=== PATIENT | female | born 1950 | race Caucasian/White ===

== ENCOUNTER 2017-02-06 03:49 | Inpatient (IN) | payer MEDICARE, OTHER ==
[~2017-02-06] VITALS: Ht 162.6 cm; Wt 44.5 kg
[2017-02-06] VITALS (7 sets, daily range): BP systolic 106–139; BP diastolic 65–82
[~2017-02-06 03:49] MED LIST: ALBU18HF2 INH; ASCO250T5 PO; CARB200C4 PO; DOCU-106 PO; FAMO-131 PO; GABA-532 PO; HYDR12.5 PO; IPRA12.9 INH; LORA1TAB82 PO; PROM6.25 PO; QUET100T PO; RISP4TAB4 PO
--- NOTE | 2017-02-06 03:50 | NUR ---
TO BED 8 BIB PARAMEDICS C/O SOB, BILATERAL RHONCHI HEARD BILATERALLY ON AUSCULTATION. PT VERY AGITATED, RESTLESS, SCREAMING. PT KEEPS TALKING ABOUT HER PSYCHIATRIST AND THAT SHE DOES NOT WANT TO SEE HER PSYCHIATRIST. PLACE PT ON CARDIAC MONITORING, CONTINUOUS POX, O2@2L/NC. ER MD AT BEDSIDE TO EVAL PT WITH ORDERS RECEIVED. WILL CARRY OUT ORDERS.
[2017-02-06] MEDS ORDERED: methylPREDNISolone SOD SUCC 125 MG/2ML VIAL IV ONE (04:00)
[2017-02-06] MEDS ORDERED: ALBUTEROL FS 2.5 MG/3 ML VIAL.NEB NEB ONE (04:00)
[2017-02-06] MEDS ORDERED: OLANZAPINE 10 MG VIAL IM ONE ×2 (04:00)
[2017-02-06] MEDS ORDERED: methylPREDNISolone SOD SUCC 125 MG/2ML VIAL ONE (04:13)
[2017-02-06] MEDS ORDERED: ONDANSETRON HCL/PF 4 MG/2 ML VIAL ONE (04:16)
[2017-02-06] MEDS ORDERED: MORPHINE SULFATE INJ 2 MG/ML DISP.SYRIN ONE (04:17)
[2017-02-06 04:20] LABS: BASOPHILS % (AUTO) 0.3 % (0.0-2.0); EOSINOPHILS # (AUTO) 0.1 /CMM (0.0-0.7); EOSINOPHILS % (AUTO) 0.7 % (0.0-6.0); HEMATOCRIT 44 % (33-45); HEMOGLOBIN 14.4 g/dL (11.5-14.8); LYMPHOCYTES # (AUTO) 1.3 /CMM (0.8-4.8); LYMPHOCYTES % (AUTO) 12.3 % (20.0-44.0); MEAN CORPUSCULAR HEMOGLOBIN 31 PG (26.0-33.0); MEAN CORPUSCULAR HGB CONC 33 g/dl (31.0-36.0); MEAN CORPUSCULAR VOLUME 94 fL (82-100); MONOCYTES # (AUTO) 0.5 /CMM (0.1-1.30); MONOCYTES % (AUTO) 4.7 % (2.0-12.0); PLATELET COUNT (AUTO) 220 /CMM (150-450); RDW COEFFICIENT OF VARIATION 13.8 (11.5-15.0); RED BLOOD CELL COUNT(AUTO) 4.66 MIL/uL (4.0-5.2); WHITE BLOOD COUNT (AUTO) 10.9 K/uL (4.3-11.0)
[2017-02-06] MEDS ORDERED: MORPHINE SULFATE INJ 2 MG/ML DISP.SYRIN IV ONE (04:30)
[2017-02-06] MEDS ORDERED: ONDANSETRON HCL/PF 4 MG/2 ML VIAL IV ONE (04:30)
[2017-02-06 04:33] LABS: CALCIUM, SERUM 9.8 mg/dL (8.5-10.1); CARBON DIOXIDE 25 mmol/L (21-32); CHLORIDE 99 mmol/L (98-107); CREATININE 0.9 mg/dL (0.6-1.3); GLUCOSE 74 mg/dL (74-106); POTASSIUM 3.9 mmol/L (3.5-5.1); SODIUM SERUM 139 mmol/L (136-145); UREA NITROGEN, BLOOD 20 mg/dL (7-18)
[2017-02-06] MEDS ORDERED: ALBUTEROL FS 2.5 MG/0.5 ML VIAL.NEB ONE (04:35)
[2017-02-06 04:40] LABS: TROPONIN I < 0.017 ng/mL (0.00-0.056)
[2017-02-06 04:41] LABS: INR 0.96 (0.87-1.13); PROTHROMBIN TIME 10.3 SECS (9.5-12.7)
[2017-02-06 04:45] LABS: ALANINE AMINOTRANSFERASE 39 U/L (12-78); ALBUMIN 4.6 g/dL (3.4-5.0); ALKALINE PHOSPHATASE 105 U/L (46-116); ASPARTATE AMINOTRANSFERASE 71 U/L (15-37); BILIRUBIN,DIRECT 0.1 mg/dL (0.0-0.2); BILIRUBIN,TOTAL 0.7 mg/dL (0.2-1.0); TOTAL PROTEIN, SERUM 8.6 g/dL (6.4-8.2)
[2017-02-06] MEDS ORDERED: MONT10TA22 PO (05:06)
[2017-02-06] MEDS ORDERED: RISP1TAB27 PO (05:06)
[2017-02-06] MEDS ORDERED: MELO-270 PO (05:06)
[2017-02-06] MEDS ORDERED: POTA20TA83 PO (05:06)
--- NOTE | 2017-02-06 05:08 | NUR ---
ER TALKING TO ARELIS ANGELO REGARDING PT ADMISSION.
[2017-02-06 05:11] LABS: B-TYPE NATRIURETIC PEPTIDE 491 PG/ML (0-125)
[2017-02-06] MEDS ORDERED: ALBU18HF2 IH (05:37)
[2017-02-06] MEDS ORDERED: TIOT18CA3 IH (05:37)
[2017-02-06] MEDS ORDERED: MAGN2400 PO (05:37)
[2017-02-06] MEDS ORDERED: HYDR-552 PO (05:37)
[2017-02-06] MEDS ORDERED: CHOL500052 PO (05:37)
[2017-02-06] MEDS ORDERED: CLON1TAB4 PO (05:37)
[2017-02-06] MEDS ORDERED: BENZ1TAB7 PO (05:37)
[2017-02-06] MEDS ORDERED: BUDE10.2 INH (05:37)
[2017-02-06] MEDS ORDERED: BENZ2TAB7 PO (05:37)
--- NOTE | 2017-02-06 06:03 | NUR ---
REPORT CALLED TO CHANNEL SALES DIRECTORELIEL CORCORAN. WILL TRANSPORT PT VIA ACLS PRTOCOL.
--- NOTE | 2017-02-06 07:03 | NUR ---
MS/RN NOTES RECEIVED PT. FROM ER VIA [facility]. PT. IS AWAKE, ALERT AND ORIENTED X2. CONFUSED. BREATHING EVEN AND UNLABORED ON O2 2L PER MIN. IV ON FA #18 PATENT AND INTACT. NO REDNESS/INFILTRATION NOTED. ORIENTED PT. TO ROOM. NO SOB OR RESPIRATORY DISTRESS NOTED AT THIS TIME. V/S WNL. ALL NEEDS ATTENDED AND ANTICIPATED. BED IN LOWEST POSITION, SIDERAILS UPX2, CALL LIGHT WITHIN REACH, WILL CONTINUE TO MONITOR AND ENDORSE TO NEXT SHIFT NURSE FOR ALLISON.
[2017-02-06] MEDS ORDERED: methylPREDNISolone SOD SUCC 40 MG/ML VIAL IV SCH (07:25)
[2017-02-06] MEDS ORDERED: RISP0.2515 PO (07:28)
[2017-02-06] MEDS ORDERED: QUET25TA PO (07:28)
[2017-02-06] MEDS ORDERED: ALBUTEROL FS 2.5 MG/0.5 ML VIAL.NEB NEB PRN (07:30)
[2017-02-06] MEDS ORDERED: IPRATROPIUM NEB FS 0.5 MG/2.5 ML AMPUL.NEB NEB PRN (07:30)
--- NOTE | 2017-02-06 07:30 | NUR ---
TELE/RN OPENING NOTES RECEIVED PT. IN BED SLEEPING, PT. AWAKENS AND RESPONSIVE TO NAME. TELE MONITOR READING SINUS RHYTHM 90 BPM. PT. IS BREATHING UNLABORED ON OXYGEN 2L/MIN WITH NASAL CANNULA. NO S/S OF ACUTE DISTRESS. IV ACCESS IS PATENT AND INTACT ON LEFT FOREARM. BED IS IN LOW POSITION, 3 SIDE RAILS UP FOR SAFETY, BED ALARM ON, AND PADDING APPLIED TO ALL ASIDE RAILS. CALL LIGHT IS WITHIN REACH. WILL CONTINUE TO ASSESS AND MONITOR.
[2017-02-06] MEDS: ALBUTEROL FS 2.5 MG/0.5 ML VIAL.NEB NEB SCH ×4 (07:35→19:23)
[2017-02-06] MEDS: IPRATROPIUM NEB FS 0.5 MG/2.5 ML AMPUL.NEB NEB SCH ×6 (07:35→19:30)
[2017-02-06 08:30] LABS: EOSINOPHILS # (AUTO) 0.1 /CMM (0.0-0.7); EOSINOPHILS % (AUTO) 0.5 % (0.0-6.0); HEMATOCRIT 40 % (33-45); HEMOGLOBIN 13.3 g/dL (11.5-14.8); LYMPHOCYTES # (AUTO) 0.3 /CMM (0.8-4.8); MEAN CORPUSCULAR HEMOGLOBIN 32 PG (26.0-33.0); MEAN CORPUSCULAR HGB CONC 33 g/dl (31.0-36.0); MEAN CORPUSCULAR VOLUME 96 fL (82-100); MONOCYTES # (AUTO) 0.1 /CMM (0.1-1.30); MONOCYTES % (AUTO) 0.6 % (2.0-12.0); NEUTROPHILS # (AUTO) 10.5 /CMM (1.8-8.9); NEUTROPHILS % (AUTO) 95.9 % (43.0-81.0); PLATELET COUNT (AUTO) 167 /CMM (150-450); RDW COEFFICIENT OF VARIATION 14.1 (11.5-15.0); RED BLOOD CELL COUNT(AUTO) 4.18 MIL/uL (4.0-5.2)
[2017-02-06 08:47] LABS: ALBUMIN 3.8 g/dL (3.4-5.0); BILIRUBIN,TOTAL 0.5 mg/dL (0.2-1.0); CALCIUM, SERUM 8.8 mg/dL (8.5-10.1); CREATININE 0.8 mg/dL (0.6-1.3); POTASSIUM 4.7 mmol/L (3.5-5.1); TOTAL PROTEIN, SERUM 7.4 g/dL (6.4-8.2)
[2017-02-06 08:54] LABS: THYROID STIMULATING HORMONE 1.458 uIU/mL (0.358-3.74)
[2017-02-06] MEDS ORDERED: clonazePAM 1 MG TABLET PO PRN (09:00)
[2017-02-06] MEDS ORDERED: QUETIAPINE FUMARATE 25 MG TABLET PO SCH (09:00)
[2017-02-06] MEDS ORDERED: MELOXICAM 7.5 MG TABLET PO SCH (09:00)
[2017-02-06] MEDS: DOCUSATE SODIUM 100 MG CAPSULE PO SCH ×2 (09:00→17:00)
[2017-02-06] MEDS ORDERED: HOME MED MISCELLANEOUS XX SCH (09:00)
[2017-02-06] MEDS: POTASSIUM CHLORIDE 20 MEQ TAB.PRT.SR PO SCH (09:00)
[2017-02-06] MEDS: MONTELUKAST SODIUM (10MG) 10 MG TABLET PO SCH (09:00)
[2017-02-06] MEDS ORDERED: MAGNESIUM HYDROXIDE 30 ML UDC PO PRN (09:00)
[2017-02-06] MEDS ORDERED: BENZTROPINE MESYLATE (1 MG) 1 MG TABLET PO PRN (09:00)
[2017-02-06] MEDS: BENZTROPINE MESYLATE (1 MG) 1 MG TABLET PO SCH ×2 (09:00→17:00)
--- NOTE | 2017-02-06 11:00 | NUR ---
TELE/RN NOTES PHARMACY CALLED TO VERIFY IF PT. CAN PROVIDE HOME MEDICATIONS, AND LAST DOSE OF VITAMIN D MONTHLY WAS GIVEN. PER PT.'S , HE CANNOT BRING MEDICATIONS FROM [facility] AT THIS TIME, AND PER MEDICATION NURSE LAST VITAMIN D DOSE WAS GIVEN December. NOTIFIED PHARMACY ABOUT PT. MEDICATIONS.
[2017-02-06] MEDS: HYDROCODONE/APAP 5/325MG 1 EACH TABLET PO PRN ×2 (12:41→20:55)
[2017-02-06] MEDS ORDERED: ALBUTEROL FS 2.5 MG/3 ML VIAL.NEB NEB PRN (13:30)
--- NOTE | 2017-02-06 16:49 | NUR ---
TELE/RN NOTES PT. HAS BRUISE ON INNER LEFT KNEE, PT. STATES, " I DID THIS MYSELF". PICTURE WAS TAKEN AND PLACED IN PT.'S CHART.
--- NOTE | 2017-02-06 17:00 | NUR ---
TELE/RN NOTES CALLED [facility] TO ASK ABOUT PT.'S FLU AND PNEUMONIA VACCINATIONS, AND PERSONAL INFORMATION ON FAMILY HISTORY. PER BEREAVEMENT PROGRAM COORDINATOR THE [facility] CAN PROVIDE THE INFORMATION BUT WAS UNAVAILABLE FOR THE REST OF THE DAY. CALLED PT.'S HAROLDO BILLINGSLEY, AND NO ANSWER.
[2017-02-06] MEDS: methylPREDNISolone SOD SUCC 40 MG/ML VIAL IV SCH (18:00)
[2017-02-06] MEDS: risperiDONE 0.25 MG TABLET PO SCH (18:08)
[2017-02-06] MEDS ORDERED: DEXTROSE 50%-WATER 50 ML DISP.SYRIN IV PRN (18:30)
--- NOTE | 2017-02-06 19:39 | NUR ---
TELE/RN OPENING NOTES PT. IN BED A&OX2, CONFUSED, AND AGITATED BECAUSE SHE WANTS TO TALK TO HAROLDO HER . TELE MONITOR READING SINUS RHYTHM 90 BPM. PT. IS BREATHING UNLABORED ON OXYGEN 2.5 L/MIN WITH NASAL CANNULA. NO S/S OF ACUTE DISTRESS. IV ACCESS IS PATENT AND INTACT ON LEFT FOREARM. BED IS IN LOW POSITION, 3 SIDE RAILS UP FOR SAFETY, BED ALARM ON, AND PADDING APPLIED TO ALL ASIDE RAILS. CALL LIGHT IS WITHIN REACH. CALLED PT.'S HAROLDO BILLINGSLEY AND [facility], PER HANDER IN [place], PT.'S STEPPED OUT, WHEN HE ARRIVES BACK TO THE FACILITY SHE WILL ASK HIM TO CALL BACK [facility]. LEFT SO ANALILIA WITH GRACIE. WILL ENDORSE REPORT TO LEAN MANUFACTURING SPECIALIST NURSE. Addendum: 02/06/17 at 1945 by JOSELITO BOYER RN CLOSING NOTE ABOVE
--- NOTE | 2017-02-06 20:00 | NUR ---
TELE/RN OPENING NOTES RECEIVED PT. IN BED, AWAKE, RESPIRATION EVEN AND UNLABORED, PT ON TELE MONITOR READING SINUS RHYTHM 90 BPM. PT ON OXYGEN 2L/MIN WITH NASAL CANNULA. NO S/S OF ACUTE DISTRESS. IV ACCESS IS PATENT AND INTACT ON LEFT FOREARM. BED IS IN LOW POSITION, 3 SIDE RAILS UP FOR SAFETY, BED ALARM ON, CALL LIGHT IS WITHIN REACH. WILL CONTINUE TO ASSESS AND MONITOR.
[2017-02-06] MEDS ORDERED: ATORVASTATIN 10 MG TABLET ONE (20:46)
[2017-02-06] MEDS: ATORVASTATIN 10 MG TABLET PO SCH (20:55)
--- NOTE | 2017-02-06 21:14 | NUR ---
PT IS COMPLAINING OF LOWER BACK PAIN 12/05. NORCO 5-325MG PO GIVEN ORDERED. WILL CONTINUE TO MONITOR AND REASSESS FOR PAIN.
[2017-02-06] MEDS: BLOOD SUGAR DIAGNOSTIC 1 EACH STRIP IN SCH (21:43)
[2017-02-06] MEDS: INSULIN ASPART HUMALOG/NOVOLOG 100 UNIT/ML CARTRIDGE SQ PRN (21:48)
--- NOTE | 2017-02-06 22:00 | NUR ---
pt refused insulin. explain the risk and benefits of not taking it. pt still refused. will continue to monitor for s/sx of hypo/hyperglycemia.
--- NOTE | 2017-02-06 23:00 | NUR ---
RN NOTES RECEIVED PT. FORM ANOTHER NURSE, PT SLEEPING BUT AROUSABLE, NO PAIN NOTED, NO SOB, CALL LIGHT WITHIN REACH, SIDERAILS UPX2, CONTINUE TO MONITOR
[2017-02-07] VITALS: BP 122/76
[2017-02-07] MEDS: methylPREDNISolone SOD SUCC 40 MG/ML VIAL IV SCH ×4 (01:00→17:00)
--- NOTE | 2017-02-07 01:00 | NUR ---
RN NOTES PT REFUES SOLU=MEDROL. PT STATED THAT SHE DOESN'T TAKE THIS MEDICATION, EVEN WE EXPLAINED THE IMPORTANCE OF THE MEDICATION , PT. STILL REFUSED THE MEDICATION
[2017-02-07] MEDS: IPRATROPIUM NEB FS 0.5 MG/2.5 ML AMPUL.NEB NEB SCH ×6 (01:30→18:59)
[2017-02-07 04:00] VITALS: BP 126/81
--- NOTE | 2017-02-07 06:37 | NUR ---
RN NOTES AWAKE, CONFUSED, MORNING CARE RENDERED, PT NEEDS ATTENDED. SIDERAILS UPX2, CALL LIGHT WITHIN REACH. ENDORSED TO DAYSHIFT NURSE FOR CONTINUITY OF CARE
[2017-02-07 07:01] VITALS: BP 142/89
[2017-02-07] MEDS: BLOOD SUGAR DIAGNOSTIC 1 EACH STRIP IN SCH ×4 (07:30→22:44)
[2017-02-07] MEDS: ALBUTEROL FS 2.5 MG/0.5 ML VIAL.NEB NEB SCH ×4 (07:33→19:00)
--- NOTE | 2017-02-07 07:35 | NUR ---
SENIOR ENTERPRISE ARCHITECT OPENING NOTE RECEIVED REPORT. PATIENT IS IN BED, AWAKE ALERT, ORIENTED TO PERSON, DISORTIENTED TO TIME, PLACE AND EVENT. PATIENT WAS REORIENTED, UNSUCSESSFULLY. PATIENT IS AGITATED, CONFUSED. DOES NOT ATTEMPT TO GET OUT OF THE BED AT THIS TIME. DENIED PAIN AT THIS TIME. VS WNL. PATIENT REFUSES BEING MONITORED/EXTERNAL MONITOR WAS DISCONNECTED AND TAKEN OUT BY THE PATIENT. PATIENT STATES SHE IS NOT GOING TO WEAR IT. BED IN LOW POSITION, SIDE RAILS X2, ALL NEEDS WITHIN REACH. WILL RETURN TO COMPLETE DULL ASESSMENT IN 15-20 MINURTES.
[2017-02-07 08:00] VITALS: BP 109/81
--- NOTE | 2017-02-07 08:10 | NUR ---
SENIOR BUSINESS MANAGER NOTES JOSEE RN CHECKED ACCUCHECK OF PATIENT 0600 THIS AM 109 RESULTS, NO NEED TO COMPLETE AGAIN
[2017-02-07] MEDS: DOCUSATE SODIUM 100 MG CAPSULE PO SCH ×2 (09:00→17:00)
--- NOTE | 2017-02-07 09:30 | NUR ---
CAUSTICS LOADER NOTES PATIENT IS THROWING PILLOWS AND PHONE ACROSS ROOM. INCOHERENT, STATING WE ARE LYING AND MUMBLING TO SELF. WANTS THE TV TURNED OFF IT IS HARMING HER. WILL NOTIFY MD OF PATIENT NEEDING PSYCH CONSULT. PT REFUSING MEDICATIONS
[2017-02-07] MEDS: MONTELUKAST SODIUM (10MG) 10 MG TABLET PO SCH (09:34)
[2017-02-07] MEDS: ASPIRIN 81 MG TAB.CHEW PO SCH (09:34)
[2017-02-07] MEDS: BENZTROPINE MESYLATE (1 MG) 1 MG TABLET PO SCH ×2 (09:35→17:00)
[2017-02-07] MEDS: POTASSIUM CHLORIDE 20 MEQ TAB.PRT.SR PO SCH (09:37)
[2017-02-07 10:00] VITALS: BP 109/81
--- NOTE | 2017-02-07 12:00 | NUR ---
MS RN NOTES PATIENT'S DIAPER IS SOILED. SN AND INTERN RETAIL TRIED TO CHANGED PATIENT'S DIAPER. PATIENT STARTING SCREAMING 'DO NOT TOUCH ME AND STARTED GETTING VISIBLY AGITATED. WILL ATTEMPT TO CHANGE THE DIAPER AGAIN.
--- NOTE | 2017-02-07 12:23 | NUR ---
GEOSPATIAL ANALYST NOTE PATIENT REFUSED FINGER STICK BGLUCOSE CHECK. PATIENT IS VERY AGITATED, INCONSOLABLE, ANXIOUS, NOT COOPERATIVE. EDUCATED ON IMPORTANCE ON BLOOD GLUCOSE MONITORING. PATIENT IS UNABLE TO UNDERSTAND. KEEPS REPEATING THAT SHE WILL NOT LET YOU GET ME. WILL NOTIFY MD.
--- NOTE | 2017-02-07 12:54 | NUR ---
MS RN NOTE DR NAIR AT BEDSIDE. MD AWARE PATIENT IS REFUSEING MEDICATIONS/FINGERSTICK GLUCOSE MONITORING/MOLD STAMPER. TRANSFER FROM TELE TO M/S PER DR. NAIR ORDER. OK TO D/C ABG ORDER. OK TO CONSULT PSYCH (DR. GARCIA). FA[facility]ED [facility]HEET TO [facility]. AWARE OF CONSULT.
--- NOTE | 2017-02-07 13:24 | NUR ---
MS RN NOTES PATIENT REFUSING TO HAVE DIAPER CHANGED OR SKIN CARE COMPLETED
--- NOTE | 2017-02-07 15:00 | NUR ---
MS RN NOTES PATIENT TRANSFERED TO ROOM CLOSER TO NURSES STATION PER DR GARCIA. DR GARCIA GIVEN PATIENT PSYCHIATRIST INFO ALEX WADE [phone]
--- NOTE | 2017-02-07 16:24 | NUR ---
MS RN NOTE PATIENT'S AT THE BEDSIDE. PATIENT IS VERY AGITATED INCONSOLABLE, NON-COMPLIANT, ANXIOUS. PATIENT THROWING PILLOWS ACROSS THE ROOM. DUE MEDICATIONS WERE REFUSED BY PATIENT STATING 'YOU WILL NOT DO THAT TO ME, YOU MADE ME CRAZY". PATIENT'S HUSBANK ASKED IF HE COULD MAKE DECISIONS ON WIVE'S BEHALF. DOCTOR RADHA NOTIFIED. WAITING FOR A CALL BACK FROM THE DOCTOR WITH AN ANSWER TO GIVE TO .
[2017-02-07] MEDS: OLANZAPINE 10 MG VIAL IM PRN (16:52)
--- NOTE | 2017-02-07 16:54 | NUR ---
MS RN OLANZAPINE 2.5MG WAS ADMINISTERED IM FOR INCREASED AGITATION. FOUR NURSES HAD TO ASSIST IN TURNING AND HOLDING THE PATIENT TO ADMINISTER THE IM MEDICATION. PATIENT TOLERATED PROCEDURE WELL. PATIENT'S AT BEDSIDE.
--- NOTE | 2017-02-07 17:28 | NUR ---
MS RN NOTE ATTEMPTED TO ADMINISTER MEDICATIONS SCHEDULES FOR 0. PATIENT REFUSED. PATIENT IS AGITATED, ANXIOUS, CONFUSED. SIDE RAILS UP x 3, BED ALARM ON, BED IN LOW POSITION. PATIENT IS MOVED TO A ROOM CLOSE TO NURSES STATION. DOOR OPEN. PATIENT IS IN BED, BUT CONTINUES TO THROW PILLOWS AROUND THE ROOM. WILL CONTINUE TO MONITOR.
--- NOTE | 2017-02-07 17:38 | NUR ---
MS RN NOTE PATIENT REFUSES DINNER. PATIENT HAS NOT CONSUMED ANY FOOD TODAY. SHE AGREED TO CONSUME BOOST. CONTACTED DR NAIR'S EXCHANGE AND LEFT A VOICEMAIL FOR A ORDER OF BOOST. WAITING FOR A CALL BACK.
--- NOTE | 2017-02-07 18:06 | NUR ---
WORKERS' COMPENSATION COMMISSIONER NOTE MADE ANOTHER ATTEMPT TO ADMINISTER MEDICATIONS TO PATIENT. PATIENT REFUSED MEDICATION AND ACCUCHECK. ALL DUE MEDICATIONS ARE NON-ADMINISTERED DUE TO PATIENT'S REFUSAL.
--- NOTE | 2017-02-07 18:15 | NUR ---
PATIENT'S DIAPER IS SOILED. SN AND MANAGER MILITARY TRIED TO CHANGED PATIENT'S DIAPER. PATIENT STARTING SCREAMING 'DO NOT TOUCH ME, GET OFF ME' AND STARTED GETTING VISIBLY AGITATED. WILL ATTEMPT TO CHANGE THE DIAPER LITTLE LATER AGAIN.
--- NOTE | 2017-02-07 18:45 | NUR ---
MS RN NOTES CALLED DIETARY TO HAVE BOOST BROUGHT UP FOR PATIENT
[2017-02-07] MEDS: BOOST PLUS FOOD-CHOCLATE 237 ML BOX PO SCH (19:00)
[2017-02-07] MEDS: risperiDONE 0.25 MG TABLET PO SCH (19:09)
--- NOTE | 2017-02-07 19:11 | NUR ---
PATIENT AGREEED TO TAKE PRESCRIBED ANTIPSYCHOTIC. PATIENT IS AGITATED, SCREAMING, CRYING, TALKING TO SELF. BED LOCKED, SIDE RAILS UP X3, BED ALARM ON. PATIENT REFUSED TO EAT DINNER. MD NOTIFIED. ORDERED BOOST WAS REFUSED. WILL ENDORSE TO PHARMACY TECHNOLOGIST FOR TRANSITION OF CARE.
--- NOTE | 2017-02-07 19:15 | NUR ---
RN OPEN NOTES RECEIVED PATIENT AWAKE IN BED. A/O X2. PATIENT AGITATED AND CONFUSED. NO SIGNS OF DISTRESS OR DISCOMFORT. BREATHING EVEN AND UNLABORED. IV ACCESS IN LFA PATENT AND INTACT, NO SIGNS OF REDNESS OR INFILTRATION. BED IN LOW LOCKED POSITION WITH SIDE RAILS X3. CALL LIGHT WITHIN REACH. WILL CONTINUE TO MONITOR. Addendum: 02/07/17 at 8 by JOSIAH VALDIVIA RN ERROR---DOCUMENTED UNDER WRONG NURSE
--- NOTE | 2017-02-07 19:53 | NUR ---
RN NOTES PATIENT HAS SITTER IN ROOM FOR SAFETY. SHE HAS REFUSED TO HAVE HER VITALS CHECKED X3, SCREAMING "NO MORE" AND SHE WANTS HER PSYCHIATRIST. PER AM SHIFT PATIENT HAS REFUSED TREATMENT THROUGH OUT THE DAY AND MD IS AWARE. CHARGE NURSE MADE AWARE. WILL CONTINUE TO MONITOR. Addendum: 02/07/17 at 1957 by JOSIAH VALDIVIA RN ERROR---DOCUMENTED UNDER WRONG NURSE
--- NOTE | 2017-02-07 20:00 | NUR ---
RN NOTES PATIENT HAS SITTER IN ROOM FOR SAFETY. SHE HAS REFUSED TO HAVE HER VITALS CHECKED X3, SCREAMING "NO MORE" AND SHE WANTS HER PSYCHIATRIST. PER AM SHIFT PATIENT HAS REFUSED TREATMENT THROUGH OUT THE DAY AND MD IS AWARE. CHARGE NURSE MADE AWARE. PATIENT EDUCATION REINFORCED. WILL CONTINUE TO MONITOR.
[2017-02-07] MEDS: HYDROCODONE/APAP 5/325MG 1 EACH TABLET PO PRN (22:23)
[2017-02-07] MEDS: ATORVASTATIN 10 MG TABLET PO SCH (22:23)
--- NOTE | 2017-02-07 22:23 | NUR ---
RN NOTES ADMINISTERED NORCO 5/325 ORDERED FOR GENERALIZED PAIN. VSS. WILL CONTINUE TO MONITOR.
[2017-02-07 22:58] VITALS: BP 146/93
[2017-02-08] MEDS: IPRATROPIUM NEB FS 0.5 MG/2.5 ML AMPUL.NEB NEB SCH ×4 (01:30→19:30)
[2017-02-08] MEDS ORDERED: OLANZAPINE 10 MG VIAL IM ONE ×2 (01:41→09:30)
[2017-02-08] MEDS: OLANZAPINE 10 MG VIAL IM PRN (01:55)
--- NOTE | 2017-02-08 01:55 | NUR ---
RN NOTES ADMINISTERED ZYPREXA 2.5MG IM ORDERED FOR AGITATION. PATIENT SCREAMING, YELLING AND THROWING PILLOWS. VSS. WILL CONTINUE TO MONITOR.
[2017-02-08] MEDS: methylPREDNISolone SOD SUCC 40 MG/ML VIAL IV SCH ×2 (01:56→08:49)
--- NOTE | 2017-02-08 07:12 | NUR ---
MS RN OPENING NOTE RECEIVED REPORT ON PATIENT. PER CANTEEN ATTENDANT NURSE THE PATIENT ROLY NOT SLEEP AT NIGHT, REFUSED FOOD AND HAS BED AGITATED THROUGHOUT THE NIGHT. CURRENTLY PATIENT IS IN BED. AWAKE, ALERT, DISORIENTED TI TIME, PLACE AND EVEMT, ORIENTED TO SELF ONLY. BED IS LOCKED IN LOWEST POSITION, SIDE RAILS UP X3, BED ALARM ON. PATIENT WAS OFFERED DRINKS/SNACKS AND REFUSED. SITTER AT BEDSIDE FOR SAFETY. WILL COME BACK TO REASSESS THE PATIENT AFTER MORNING ROUNDS. PATIENT IS STABLE. DENIES PAIN, BUT STATES THAT SHE IS KEEP HERE A HOSTAGE AND WANTS TO GO HOME. WILL REPORT ALL THE FINDINGS TO
--- NOTE | 2017-02-08 07:25 | NUR ---
RN CLOSING NOTES PATIENT AWAKE IN BED WITH SITTER AT BEDSIDE. A/O X2. PATIENT STILL AGITATED AND CONFUSED. NO SIGNS OF DISTRESS OR DISCOMFORT. BREATHING EVEN AND UNLABORED. IV ACCESS IN LFA PATENT AND INTACT, NO SIGNS OF REDNESS OR INFILTRATION. ALL NEEDS MET. NO SIGNIFICANT CHANGES THROUGH THE NIGHT. BED IN LOW LOCKED POSITION WITH SIDE RAILS X3. CALL LIGHT WITHIN REACH. ENDORSED TO AM SHIFT FOR ALLISON.
[2017-02-08] MEDS: BLOOD SUGAR DIAGNOSTIC 1 EACH STRIP IN SCH ×4 (07:30→22:00)
[2017-02-08] MEDS: ALBUTEROL FS 2.5 MG/0.5 ML VIAL.NEB NEB SCH ×4 (07:35→19:30)
--- NOTE | 2017-02-08 08:32 | NUR ---
MS RN NOTE PATIENT IS SCREAMING, CALLING FOR HELP AND REPEATING WORDS "GERSON SARWAT". PATIENT IS HAVING VISUAL AND AUDITORY HALLUCINATIONS EVIDENCED BY PATIENT SPEAKING TO PEOPLE NOT PRESENT IN THE ROOM NAMED EMMANUEL AND DOV, PATIENT STATING SHE IS BEING TOLD THAT WE ARE TRYING TO KILL HER, AND PATIENT STATING THERE IS A SNAKE IN HER WATER. REFUSES TO DRINK OR EAT. SCREAMING WHEN NURSE TRIED TO GET CLOSER. PATIENT IS IN BED. SITTER ON SITE. WILL NOTIFY DR. NAIR.
--- NOTE | 2017-02-08 08:46 | NUR ---
MS RN NOTE INFORMED DR. GARCIA OF PATIENT'S MOST RECENT CONDITION. WAIOTING FOR THE DOCTOR TO COME FOR THE ROUNDS.
[2017-02-08] MEDS: ASPIRIN 81 MG TAB.CHEW PO SCH (08:49)
[2017-02-08] MEDS: DOCUSATE SODIUM 100 MG CAPSULE PO SCH ×2 (08:50→17:00)
[2017-02-08] MEDS: BENZTROPINE MESYLATE (1 MG) 1 MG TABLET PO SCH ×2 (08:50→17:00)
[2017-02-08] MEDS: BOOST PLUS FOOD-CHOCLATE 237 ML BOX PO SCH ×3 (08:50→17:00)
[2017-02-08] MEDS: POTASSIUM CHLORIDE 20 MEQ TAB.PRT.SR PO SCH (08:50)
[2017-02-08] MEDS: MONTELUKAST SODIUM (10MG) 10 MG TABLET PO SCH (08:51)
--- NOTE | 2017-02-08 08:54 | NUR ---
MS RN PATIENT REFUSED ALL THE MEDICATIONS AND FINGERSTICK BLOOD GLUCOSE TESTING. SPOKE TO DR GARCIA AND INFORMED HER OF ALL NEW FINDINGS/PATIENT'S CURRENT STATUS. NO NEW ORDERS AT THIS TIME.
--- NOTE | 2017-02-08 08:55 | NUR ---
MS RN NOTES MESSAGE TO CASE MANAGEMENT PER DR GARCIA TO SEE IF PATIENT WOULD BE ACCEPTED TO [facility] IF ON A HOLD
--- NOTE | 2017-02-08 09:15 | NUR ---
MS RN NOTES SPOKE WITH [facility] FOR [facility]. PER DR GARCIA TO FIND OUT IF PATIENT INSURANCE WILL BE ACCEPTED FOR [facility]
--- NOTE | 2017-02-08 09:22 | NUR ---
MS JULIAN NOTE RECEIVED TELEPHONE ORDER FROM DR. GARCIA FOR ZYPREXA 7.[address] NAIR INFORMED ON PATIENT'S CONDITION/UPDATES. Addendum: 02/08/17 at 0955 by XAVI WARD RN ZYPREXA 7.5 MG IM ONE TIME NOW.
--- NOTE | 2017-02-08 09:45 | NUR ---
MS RN NOTES PER DR MICHEL PATIENT IS UNDER HIS CARE AT THIS TIME. CALLED ADMITTING AND THEY WILL UPDATE PATIENT CHART. MD MICHEL UPDATED ON PATIENT CONDITION AND CONVERSATIONS WITH DR NAIR AND DR GARCIA. AWARE PATIENT IS NOT ACCEPTED TO [facility] AT THIS TIME. HE WILL F/U
--- NOTE | 2017-02-08 10:26 | NUR ---
MS RN NOTES PATIENT IS AT THIS TIME RESTING COMFORTABLY. WILL HOLD ZYPREXA AT THIS TIME.
--- NOTE | 2017-02-08 12:30 | NUR ---
MS RN NOTE PATIENT REFUSED MEDICATION DUE. AWARE.
--- NOTE | 2017-02-08 12:54 | NUR ---
MS RN NOTE PATIENT IS RESTING COMFORTABLY IN BED. NO NEED TO ADMINISTER ZYPREXA. NOT NEEDED AT THIS TIME. WILL REASSESS THE PATIENT FREQUENTLY.
--- NOTE | 2017-02-08 13:53 | NUR ---
ms rn notes kingsley aware of consult will see patient once patient on floor.
--- NOTE | 2017-02-08 16:23 | NUR ---
MS RN NOTES NOTIFIED DR MARILU GARCIA CALLED AND ASKING ABOUT TRANSFERRING TO PATIENT TO [facility] AND WAITING FOR PATIENT TO BE MEDICALLY CLEARED. LEFT MESSAGE. CONTACTED CASE MANAGEMENT PER DR GARCIA TO SEE IF PATIENT COULD BE ACCEPTED. SHE WILL F/U
--- NOTE | 2017-02-08 17:08 | NUR ---
MS RN NOTE PATIENT IN BED, AGITATED, SPEAKING TO SELF. REFUSED ALL DUE MEDS. SITTER ON SITE. REFUSED BOOST. EAS OFFERED AND REFUSED WATER. WILL CONTINUE MONITORING. AWARE.
[2017-02-08] MEDS: risperiDONE 0.25 MG TABLET PO SCH (18:00)
--- NOTE | 2017-02-08 19:05 | NUR ---
RN OPEN NOTES PATIENT AWAKE IN BED WITH SITTER AT BEDSIDE. A/O X1-2. PATIENT IS VERY AGITATED, CONFUSED, AND DISORIENTED. BECOMES COMBATIVE WHEN ATTEMPTING TO ADMINISTER ANY FORM OF CARE. NO SIGNS OF DISTRESS OR DISCOMFORT. BREATHING EVEN AND UNLABORED. IV ACCESS IN LFA PATENT AND INTACT, NO SIGNS OF REDNESS OR INFILTRATION. BED IN LOW LOCKED POSITION WITH SIDE RAILS X3. CALL LIGHT WITHIN REACH. WILL CONTINUE TO MONITOR.
--- NOTE | 2017-02-08 19:41 | NUR ---
MS RN CLOSING PATIENT HAD NO CHANGES TODAY AND SITTER AT SIDE. DR GARCIA AND DR MICHEL UPDATED ON PENDING TRANSFER TO [facility] FROM CASE MANAGEMENT SOY. CARE ENDORSED TO ELIEL SIEGEL
[2017-02-08 20:00] VITALS: BP 155/95
[2017-02-08] MEDS: ATORVASTATIN 10 MG TABLET PO SCH (22:00)
--- NOTE | 2017-02-08 22:46 | NUR ---
RN NOTES PATIENT HAS REFUSED ALL MEDICATIONS AND BLOOD GLUCOSE CHECK X3. MD AWARE, THIS HAS BEEN THE PATIENTS STATUS THROUGH OUT THE DAY. PATIENT EDUCATION REINFORCED. WILL CONTINUE TO MONITOR.
[2017-02-09] MEDS: IPRATROPIUM NEB FS 0.5 MG/2.5 ML AMPUL.NEB NEB SCH ×4 (01:21→19:04)
[2017-02-09] MEDS ORDERED: OLANZAPINE 10 MG VIAL IM ONE (01:51)
[2017-02-09] MEDS: OLANZAPINE 10 MG VIAL IM PRN ×2 (01:56→09:29)
--- NOTE | 2017-02-09 01:56 | NUR ---
RN NOTES ADMINISTERED ZYPREXA 2.5MG IM ORDERED FOR AGITATION. PATIENT AWAKE SCREAMING "CRITICAL", ATTEMPTING TO STAND UP IN BED. VSS. WILL CONTINUE TO MONITOR.
--- NOTE | 2017-02-09 07:11 | NUR ---
RN CLOSING NOTES PATIENT AWAKE IN BED WITH SITTER AT BEDSIDE. A/O X1-2. NO SIGNS OF DISTRESS OR DISCOMFORT. BREATHING EVEN AND UNLABORED. ALL NEEDS MET. NO SIGNIFICANT CHANGES THROUGH THE NIGHT. BED IN LOW LOCKED POSITION WITH SIDE RAILS X3. CALL LIGHT WITHIN REACH. WILL ENDORSE TO AM SHIFT FOR ALLISON.
[2017-02-09] MEDS: BLOOD SUGAR DIAGNOSTIC 1 EACH STRIP IN SCH ×4 (07:30→21:31)
--- NOTE | 2017-02-09 07:30 | NUR ---
MS ELIEL AM NOTES PATIENT AWAKE IN BED, SITTER AT BEDSIDE. A/O X1-2. PATIENT IS VERY AGITATED, CONFUSED, AND DISORIENTED. MUMBLES WORD, DOES NOT WANT TO BE TOUCHED, BANGS SIDE RAILS WITH HER HANDS, ON RA, NOT IN ANY DISTRESS, NO SOB, NO SIGNS OF DISTRESS OR DISCOMFORT. BREATHING EVEN AND UNLABORED. NO IV ACCESS, MD AWARE, REGULAR DIET, USES DIAPERS, BED IN LOW LOCKED POSITION WITH SIDE RAILS X3. CALL LIGHT WITHIN REACH. WILL CONTINUE TO MONITOR. Addendum: 02/09/17 at 1005 by NAHOMY ADAME RN ADDENDUM: UNABLE TO DO ACCUCHECK, PT REFUSED AND GETS AGITATED.
[2017-02-09] MEDS: ALBUTEROL FS 2.5 MG/0.5 ML VIAL.NEB NEB SCH ×4 (07:35→19:04)
--- NOTE | 2017-02-09 08:00 | NUR ---
RT MED NOTE PT REFUSING ASSESSMENT AND MEDS. NO RESP DISTRESS NOTED. PT CONFUSED, COMBATIVE WHEN CARE IS ATTEMPTED.
[2017-02-09] MEDS ORDERED: Blood Sugar Diagnostic IN (08:35)
[2017-02-09] MEDS ORDERED: OLAN10VI IM (08:35)
[2017-02-09] MEDS: MONTELUKAST SODIUM (10MG) 10 MG TABLET PO SCH (08:41)
[2017-02-09] MEDS: BENZTROPINE MESYLATE (1 MG) 1 MG TABLET PO SCH (08:41)
[2017-02-09] MEDS: ASPIRIN 81 MG TAB.CHEW PO SCH (08:41)
[2017-02-09] MEDS: DOCUSATE SODIUM 100 MG CAPSULE PO SCH ×2 (08:41→17:08)
[2017-02-09] MEDS: POTASSIUM CHLORIDE 20 MEQ TAB.PRT.SR PO SCH (08:41)
[2017-02-09] MEDS: BOOST PLUS FOOD-CHOCLATE 237 ML BOX PO SCH ×3 (08:43→17:08)
[2017-02-09] MEDS ORDERED: ERGOCALCIFEROL (VITAMIN D 2) 50,000 UNIT CAPSULE PO SCH (09:00)
--- NOTE | 2017-02-09 09:30 | NUR ---
MS RN NOTES PATIENT VERY COMBATIVE, THREW WATER AT SITTER. GAVE ZYPREXA 2.5MG IM.
--- NOTE | 2017-02-09 11:08 | NUR ---
MS RN NOTES REFUSED ACCUCHECK
--- NOTE | 2017-02-09 11:59 | NUR ---
MS RN NOTES PER DR. GARCIA, PREFERRED TO DC TOMORROW BUT IS OKAYED FOR TODAY.
[2017-02-09] MEDS ORDERED: OLANZAPINE 5 MG/TAB.RAPDIS PO SCH (12:00)
[2017-02-09] MEDS ORDERED: OLANZAPINE 10 MG VIAL IM PRN (12:00)
--- NOTE | 2017-02-09 12:12 | NUR ---
MS RN NOTES PER SOY OAKLEY, CASE MGT., THEY INFORMED DR. MICHEL THAT PT IS DECLINED AT [facility] AND THAT DR. MICHEL TOLD TO HAVE PT RETURN TO [facility].
--- NOTE | 2017-02-09 13:31 | NUR ---
MS RN NOTES PER DR. MARILU ESPINOZA CM AWARE THAT PT GOT DECLINED AT [facility] AND THAT THEY TRY IF [facility] ACCEPT PT.
--- NOTE | 2017-02-09 15:28 | NUR ---
MS RN NOTES PER DR. MICHEL, PATIENT FOR CRISIS TEAM EVAL. COORDINATED WITH CASE MANAGEMENT JOSE ESPINOZA [phone] AND DEB [phone].
[2017-02-09 15:58] VITALS: BP 138/79
[2017-02-09 16:00] VITALS: BP 138/79
[2017-02-09] MEDS ORDERED: LORAZEPAM 0.5 MG TABLET PO SCH (17:00)
[2017-02-09] MEDS: OLANZAPINE 5 MG/TAB.RAPDIS PO SCH (17:08)
--- NOTE | 2017-02-09 17:09 | NUR ---
MS RN NOTES REFUSED ACCUCHECK
[2017-02-09 17:23] LABS: CALCIUM, SERUM 9.6 mg/dL (8.5-10.1); CREATININE 0.9 mg/dL (0.6-1.3); POTASSIUM 3.8 mmol/L (3.5-5.1)
[2017-02-09 17:25] LABS: HEMATOCRIT 48 % (33-45); HEMOGLOBIN 15.9 g/dL (11.5-14.8); LYMPHOCYTES # (AUTO) 1.2 /CMM (0.8-4.8); LYMPHOCYTES % (AUTO) 5.3 % (20.0-44.0); MEAN CORPUSCULAR HEMOGLOBIN 31 PG (26.0-33.0); MEAN CORPUSCULAR HGB CONC 33 g/dl (31.0-36.0); MEAN CORPUSCULAR VOLUME 94 fL (82-100); MONOCYTES # (AUTO) 0.5 /CMM (0.1-1.30); MONOCYTES % (AUTO) 2.2 % (2.0-12.0); NEUTROPHILS # (AUTO) 20.6 /CMM (1.8-8.9); NEUTROPHILS % (AUTO) 92.5 % (43.0-81.0); PLATELET COUNT (AUTO) 271 /CMM (150-450); RDW COEFFICIENT OF VARIATION 14.1 (11.5-15.0); RED BLOOD CELL COUNT(AUTO) 5.06 MIL/uL (4.0-5.2); WHITE BLOOD COUNT (AUTO) 22.3 K/uL (4.3-11.0)
[2017-02-09 17:36] LABS: ALBUMIN 3.9 g/dL (3.4-5.0); BILIRUBIN,TOTAL 0.4 mg/dL (0.2-1.0); TOTAL PROTEIN, SERUM 8.3 g/dL (6.4-8.2)
[2017-02-09 18:00] VITALS: BP 138/79
--- NOTE | 2017-02-09 18:53 | NUR ---
MS RN NOTES PATIENT RESTING, SITTER AT BEDSIDE, CALM AT THIS TIME. NO IV ACCESS, MD AWARE, ALL NEEDS MET, NO OTHER SIGNIFICANT CHANGE IN CONDITION. WILL ENDORSE TO NEXT SHIFT FOR ALLISON. PER CM, NO NEED FOR CRISIS TEAM, STILL AWAITING PLACEMENT PER CASE MANAGEMENT.
--- NOTE | 2017-02-09 19:30 | NUR ---
CDL SERVICE TECHNICIAN/NOTES DR GARCIA CALLED AND ASKED ABOUT THE PT CONDITION. I TOLD HER SHE'S CALMED AT THIS MOMENT. SHE TOLD ME THAT SHE'S CALLING ME BY 9PM TO CHECK THE PATIENT AGAIN . NO ORDERS GIVEN AT THIS TIME.
[2017-02-09 20:00] VITALS: BP 135/87
--- NOTE | 2017-02-09 20:02 | NUR ---
MS STROKE PROGRAM COORDINATOR INITIAL NOTES SEEN PT IN BED AWAKE AND CALMED AT THIS TIME , BREATHING EVEN AND UNLABORED, NOT IN ANY ACUTE DISTRESS NOTED. NO IV ACCES AND MD AWARE PER AM NURSE. SKIN WARM AND DRY TO TOUCH. KEPT HER WARM AND COMFORTABLE AT ALL TIMES. SITTER AT THE BEDSIDE FOR SAFETY. WILL CONTINUE TO MONITOR.
[2017-02-09] MEDS ORDERED: OLANZAPINE 5 MG TABLET ONE (21:20)
[2017-02-09] MEDS ORDERED: OLANZAPINE 5 MG TABLET PO ONE (21:30)
[2017-02-09] MEDS: ATORVASTATIN 10 MG TABLET PO SCH (21:31)
--- NOTE | 2017-02-09 21:47 | NUR ---
TRANSPLANT WORKER/ NOTES ANOTHER ZYPREXA 5MG PO GIVEN PER DR GARCIA ORDERED. BLOOD SUGAR CHECKED DONE 126 , NO INSULIN GIVEN NO SIGNS OF HYPOGLYCEMIA NOTED. WILL CONTINUE TO MONITOR.
[2017-02-10] MEDS: IPRATROPIUM NEB FS 0.5 MG/2.5 ML AMPUL.NEB NEB SCH ×5 (01:30→16:01)
[2017-02-10] MEDS: BLOOD SUGAR DIAGNOSTIC 1 EACH STRIP IN SCH ×2 (06:27→12:06)
[2017-02-10] MEDS: INSULIN ASPART HUMALOG/NOVOLOG 100 UNIT/ML CARTRIDGE SQ PRN (06:31)
[2017-02-10 07:20] LABS: BASOPHILS % (AUTO) 0.1 % (0.0-2.0); HEMATOCRIT 48 % (33-45); HEMOGLOBIN 15.9 g/dL (11.5-14.8); LYMPHOCYTES # (AUTO) 1.7 /CMM (0.8-4.8); LYMPHOCYTES % (AUTO) 9.2 % (20.0-44.0); MEAN CORPUSCULAR HEMOGLOBIN 31 PG (26.0-33.0); MEAN CORPUSCULAR HGB CONC 33 g/dl (31.0-36.0); MEAN CORPUSCULAR VOLUME 94 fL (82-100); MONOCYTES # (AUTO) 0.7 /CMM (0.1-1.30); MONOCYTES % (AUTO) 3.7 % (2.0-12.0); PLATELET COUNT (AUTO) 249 /CMM (150-450); RDW COEFFICIENT OF VARIATION 14.1 (11.5-15.0); RED BLOOD CELL COUNT(AUTO) 5.06 MIL/uL (4.0-5.2); WHITE BLOOD COUNT (AUTO) 18.4 K/uL (4.3-11.0)
--- NOTE | 2017-02-10 07:30 | NUR ---
MS RN notes: - Patient in bed eating breakfast independently,, responsive & cooperative to physical assessment, , on room air, non-labored respirations, wheezing at lower lung malagon heard 1x hard non-productive coughing.
[2017-02-10] MEDS: ALBUTEROL FS 2.5 MG/0.5 ML VIAL.NEB NEB SCH ×3 (07:35→16:00)
--- NOTE | 2017-02-10 07:50 | NUR ---
WIRE MESH GATE ASSEMBLER CLOSING NOTES PT AWAKE AND ALERT , SEEMS QUIET UNTIL NOW AND NO AGITATION NOTED, BED BATH ALSO DONE. ALL DUE MEDS GIVEN AND STABLE RISA THE NIGHT. SLEPT WELL ALMOST 10 HRS AFTER ZYPREXA PO GIVEN. RESPIRATION EVEN AND NON-LABORED. NOT IN ANY ACUTE DISTRESS NOTED. BLOOD SUGAR ALSO CHECKED 172 3 UNITS OF INSULIN GIVEN. NO SIGNS OF HYPER GLYCEMIA NOTED. ENDORSE TO AM NURSE ZENA FOR CONTINUITY OF CARE. SITTER AT THE BEDSIDE FOR SAFETY.
[2017-02-10 07:58] VITALS: BP 95/60
[2017-02-10] MEDS: DOCUSATE SODIUM 100 MG CAPSULE PO SCH (08:23)
[2017-02-10] MEDS: ASPIRIN 81 MG TAB.CHEW PO SCH (08:23)
[2017-02-10] MEDS: MONTELUKAST SODIUM (10MG) 10 MG TABLET PO SCH (08:24)
[2017-02-10] MEDS: POTASSIUM CHLORIDE 20 MEQ TAB.PRT.SR PO SCH (08:25)
[2017-02-10] MEDS: OLANZAPINE 5 MG/TAB.RAPDIS PO SCH ×2 (08:29→12:10)
[2017-02-10] MEDS: BOOST PLUS FOOD-CHOCLATE 237 ML BOX PO SCH ×2 (08:30→12:07)
--- NOTE | 2017-02-10 09:00 | NUR ---
MS RN BREAKFAST SERVED, WAS ABLE TO EAT, ABOUT 50%, DUE MEDS GIVEN, TOLERATED WELL.
--- NOTE | 2017-02-10 11:30 | NUR ---
MS RN WAS SEEN BY PT, WAS ABLE TO AMBULATE W/ WALKER, TOLERATED WELL.
--- NOTE | 2017-02-10 17:00 | NUR ---
MS RN WAS DISCHARGE W/ PRIOR REPORT TO ZACH OF [facility], VIA AMBULANCE. DISCHARGE INSTRUCTIONS GIVEN AND WELL UNDERSTOOD BY ZACH JULIAN.
== END 2017-02-10 17:47 | DRG 885 ==
LOC: ER 03:50 → TELE 05:49 → MED 02-07 15:04
PROVIDERS: ADMIT Internal Medicine; ATTEND Internal Medicine
DX: F29 Unspecified psychosis not due to a substance or known physiological condition (principal); G93.40 Encephalopathy, unspecified; F03.90 Unspecified dementia, unspecified severity, without behavioral disturbance, psychotic disturbance, mood disturbance, and anxiety; J44.9 Chronic obstructive pulmonary disease, unspecified; E44.1 Mild protein-calorie malnutrition; F20.9 Schizophrenia, unspecified; E55.9 Vitamin D deficiency, unspecified; F17.200 Nicotine dependence, unspecified, uncomplicated; G89.29 Other chronic pain; I25.10 Atherosclerotic heart disease of native coronary artery without angina pectoris; I10 Essential (primary) hypertension; M19.90 Unspecified osteoarthritis, unspecified site; K21.9 Gastro-esophageal reflux disease without esophagitis; Z79.899 Other long term (current) drug therapy; F41.9 Anxiety disorder, unspecified
CPT/HCPCS: 36415; 71010-TC; 72170-TC; 73501; 80048-TC; 80053-TC; 80061-TC; 80076-TC; 82962-TC; 83605-TC; 83735-TC; 83880; 84443-TC; 84484-TC; 85025-TC; 85730-TC; 87040-TC; 87081-TC; A4606; J1815; J2270; J2405; J2920; J2930; J3490; J7060; Z7610

== ENCOUNTER 2017-12-07 19:45 | Inpatient (IN) | payer OTHER, MEDICARE ==
[~2017-12-07] VITALS: Ht 154.9 cm; Wt 52.6 kg
[~2017-12-07 19:45] MED LIST changes: +ALBU18HF2 IH; -ALBU18HF2 INH; -ASCO250T5 PO; +BENZ1TAB7 PO; +BENZ2TAB7 PO; +BUDE10.2 INH; +Blood Sugar Diagnostic IN; -CARB200C4 PO; +CHOL500052 PO; -FAMO-131 PO; -GABA-532 PO; +HYDR-552 PO; -HYDR12.5 PO; -IPRA12.9 INH; -LORA1TAB82 PO; +MAGN2400 PO; +MELO-105 PO; +MONT10TA22 PO; +OLAN10VI IM; +POTA20TA83 PO; -PROM6.25 PO; -QUET100T PO; +RISP0.2515 PO; -RISP4TAB4 PO; +TIOT18CA3 IH
--- NOTE | 2017-12-07 19:50 | NUR ---
BIBA FR FINE GOLD MANOR FOR C/O GENERALIZED WEAKNESS W/ SOB, BODYACHES, CHILLS, LOW O2 SAT 87% ON RA, PLACED ON 2 L/MIN O2 VIA NC, SPO2 94%. PT STATES SHE HAS BEEN FEELING WEAK AND SICK SINCE 2200 LAST NIGHT. VSS. RESP EVEN AND MILDLY LABORED. NO S/S OF ACUTE DISTRESS NOTED. PT ABLE TO MOVE ALL EXTREMITIES FREELY. FACIAL SYMETRY AND SENSATIONS EQUAL BILATERALLY. PT PLACED ON MONITOR AND POX. PT SAFETY AND COMFORT MEASURES IN PLACE. AWAITING MD FOR EVAL.
--- NOTE | 2017-12-07 20:28 | NUR ---
RT BEDSIDE FOR ABG AND BREATHING TREATMENT
[2017-12-07 20:30] LABS: BASOPHILS % (AUTO) 0.2 % (0.0-2.0); EOSINOPHILS % (AUTO) 0.2 % (0.0-6.0); HEMATOCRIT 50 % (33-45); HEMOGLOBIN 16.9 g/dL (11.5-14.8); LYMPHOCYTES # (AUTO) 0.4 /CMM (0.8-4.8); MEAN CORPUSCULAR HGB CONC 34 g/dl (31.0-36.0); MEAN CORPUSCULAR VOLUME 95 fL (82-100); MONOCYTES # (AUTO) 0.5 /CMM (0.1-1.30); MONOCYTES % (AUTO) 7.8 % (2.0-12.0); NEUTROPHILS # (AUTO) 5.1 /CMM (1.8-8.9); NEUTROPHILS % (AUTO) 85.8 % (43.0-81.0); PLATELET COUNT (AUTO) 147 /CMM (150-450); RDW COEFFICIENT OF VARIATION 13.8 (11.5-15.0); RED BLOOD CELL COUNT(AUTO) 5.28 MIL/uL (4.0-5.2)
[2017-12-07] MEDS ORDERED: IPRATROPIUM NEB FS 0.5 MG/2.5 ML AMPUL.NEB NEB ONE (20:30)
[2017-12-07] MEDS ORDERED: ALBUTEROL FS 2.5 MG/3 ML VIAL.NEB CONTNEB ONE (20:30)
[2017-12-07] MEDS ORDERED: methylPREDNISolone SOD SUCC 125 MG/2ML VIAL IV ONE (20:30)
[2017-12-07 20:32] LABS: ABG BASE EXCESS 7.2 mmol/L; ABG PCO2 66.5 mmHg (35.0-45.0); ABG PO2 70.7 mmHg (75.0-100.0); AaDO2 79.7 mmHg; COHb 10.4 % (0.5-1.5); MetHb 0.2 % (0.0-1.5); SITE, ABG Right Radial; VENT MODE, BG 3L N/C
[2017-12-07] MEDS ORDERED: IPRATROPIUM NEB FS 0.5 MG/2.5 ML AMPUL.NEB ONE (20:35)
[2017-12-07] MEDS ORDERED: ALBUTEROL FS 2.5 MG/3 ML VIAL.NEB ONE (20:35)
--- NOTE | 2017-12-07 20:39 | NUR ---
RADIOLOGY BEDSIDE FOR X-RAY
--- NOTE | 2017-12-07 20:40 | NUR ---
URINE SAMPLE COLLECTED AND WAS PICKED UP BY INNER TUBE INSERTER
[2017-12-07 20:43] LABS: INR 0.97 (0.85-1.15)
[2017-12-07 20:49] LABS: ALANINE AMINOTRANSFERASE 19 U/L (12-78); ALBUMIN 3.3 g/dL (3.4-5.0); ALKALINE PHOSPHATASE 103 U/L (46-116); ASPARTATE AMINOTRANSFERASE 24 U/L (15-37); BILIRUBIN,DIRECT 0.1 mg/dL (0.0-0.2); BILIRUBIN,TOTAL 0.3 mg/dL (0.2-1.0); CARBON DIOXIDE 35 mmol/L (21-32); CHLORIDE 96 mmol/L (98-107); CREATININE 0.8 mg/dL (0.6-1.3); GLUCOSE 166 mg/dL (74-106); POTASSIUM 4.2 mmol/L (3.5-5.1); SODIUM SERUM 133 mmol/L (136-145); TOTAL PROTEIN, SERUM 7.7 g/dL (6.4-8.2); UREA NITROGEN, BLOOD 12 mg/dL (7-18)
[2017-12-07] MEDS ORDERED: methylPREDNISolone SOD SUCC 125 MG/2ML VIAL ONE (20:49)
[2017-12-07 20:52] LABS: TROPONIN I < 0.017 ng/mL (0.00-0.056)
--- NOTE | 2017-12-07 20:55 | NUR ---
Paged Dr. Berto Fisher
[2017-12-07] MEDS ORDERED: LEVOFLOXACIN 750 MG /D5W 150ML PIGGYBACK IV ONE (21:00)
[2017-12-07 21:05] LABS: APPEARANCE,URINE Clear (CLEAR); BILIRUBIN,URINE Negative (NEGATIVE); BLOOD, URINE Moderate Ery/uL (NEGATIVE); COLOR,URINE Yellow (YELLOW); KETONES,URINE Negative (NEGATIVE); NITRITE, URINE Negative (NEGATIVE); PH,URINE 6.5 (5.0-8.0); PROTEIN,URINE >=300 mg/dl (NEGATIVE); UGLUCOSE Negative (NEGATIVE); UROBILINOGEN,URINE 0.2 EU/dL (0.2)
--- NOTE | 2017-12-07 21:05 | NUR ---
Patient assigned to Tele [phone], accepted by Dr. Berto Fisher Dx: COPD exacerbation
--- NOTE | 2017-12-07 21:32 | NUR ---
REPORT GIVEN TO COMPA GOYAL FOR ALLISON.
[2017-12-07 21:40] VITALS: BP 122/77
--- NOTE | 2017-12-07 21:40 | NUR ---
RN ADMITTING NOTES RECEIVED REPORT FROM INTERNET MARKETING COORDINATOR JOSEPHINE. Pt BEING ADMITTED FOR COPD EXACERBATION. Pt ARRIVED TO THE FLOOR VIA GURNEY. WAS TRANSFERRED TO THE BED SAFELY BY STAFF. PT IS A/OX3, VERBAL, ABLE TO MAKE NEEDS KNOWN. IV ACCESS ON RFA #[id number]. ON TELE MONITOR. NO S/S OF ACUTE DISTRESS NOTED. ON 3L NC. WAITING FOR ADMITTING ORDERS FROM DR. NAIR. SAFETY MEASURES IN PLACE. BED LOW, LOCKED, HOB ELEVATED, SIDE RAILS UP, CALL LIGHT AND BEDSIDE TABLE WITHIN REACH. WILL CONTINUE TO MONITOR Pt THROUGHOUT THE NIGHT FOR SAFETY.
[2017-12-07 21:45] VITALS: BP 122/77
[2017-12-07] MEDS ORDERED: ATORVASTATIN 40 MG TABLET PO SCH (22:00)
[2017-12-07] MEDS ORDERED: risperiDONE 1 MG TABLET PO SCH (23:00)
--- NOTE | 2017-12-07 23:05 | NUR ---
RN NOTES RECEIVED T/O FROM DR NAIR. WILL FAX TO PHARMACY.
[2017-12-07] MEDS ORDERED: HYDR-552 PO (23:26)
[2017-12-07] MEDS ORDERED: ATOR10TA PO (23:26)
[2017-12-07] MEDS ORDERED: RISP2TAB5 PO (23:26)
[2017-12-07] MEDS ORDERED: ATORVASTATIN 10 MG TABLET PO SCH (23:57)
[2017-12-08] MEDS: BENZTROPINE MESYLATE (1 MG) 1 MG TABLET PO SCH ×3 (00:15→17:36)
[2017-12-08] MEDS: HYDROCODONE/APAP 5/325MG 1 EACH TABLET PO PRN ×3 (00:19→20:48)
[2017-12-08] MEDS: ATORVASTATIN 10 MG TABLET PO SCH ×2 (00:43→21:43)
[2017-12-08] MEDS ORDERED: INSULIN REGULAR, HUMAN 100 UNIT/ML 3 ML VIAL SQ PRN (02:30)
[2017-12-08] MEDS ORDERED: ALBUTEROL HALF STRENGTH 1.25 MG/3 ML VIAL.NEB NEB PRN (02:30)
[2017-12-08] MEDS ORDERED: MAGNESIUM HYDROXIDE 30 ML UDC PO PRN (02:30)
[2017-12-08] MEDS ORDERED: DEXTROSE 50%-WATER 50 ML DISP.SYRIN IV PRN ×2 (02:30→08:30)
[2017-12-08] MEDS ORDERED: IPRATROPIUM NEB FS 0.5 MG/2.5 ML AMPUL.NEB NEB PRN (02:30)
[2017-12-08] MEDS: IPRATROPIUM NEB FS 0.5 MG/2.5 ML AMPUL.NEB NEB SCH ×7 (03:30→22:51)
[2017-12-08] MEDS: ALBUTEROL HALF STRENGTH 1.25 MG/3 ML VIAL.NEB NEB SCH ×6 (03:30→22:51)
[2017-12-08 04:00] VITALS: BP 104/53
--- NOTE | 2017-12-08 06:35 | NUR ---
RN NOTES AC ACCUCHECK 161. ADMINISTERED 3UN OF INSULIN PER SLIDING SCALE.
[2017-12-08 06:38] LABS: HEMATOCRIT 49 % (33-45); HEMOGLOBIN 16.1 g/dL (11.5-14.8); LYMPHOCYTES # (AUTO) 0.2 /CMM (0.8-4.8); LYMPHOCYTES % (AUTO) 6.1 % (20.0-44.0); MEAN CORPUSCULAR HGB CONC 33 g/dl (31.0-36.0); MEAN CORPUSCULAR VOLUME 99 fL (82-100); MONOCYTES % (AUTO) 0.6 % (2.0-12.0); NEUTROPHILS # (AUTO) 3.5 /CMM (1.8-8.9); NEUTROPHILS % (AUTO) 93.3 % (43.0-81.0); PLATELET COUNT (AUTO) 137 /CMM (150-450); RDW COEFFICIENT OF VARIATION 14.1 (11.5-15.0); RED BLOOD CELL COUNT(AUTO) 4.93 MIL/uL (4.0-5.2); WHITE BLOOD COUNT (AUTO) 3.7 K/uL (4.3-11.0)
[2017-12-08 06:48] LABS: CALCIUM, SERUM 8.6 mg/dL (8.5-10.1); CREATININE 0.8 mg/dL (0.6-1.3); POTASSIUM 4.7 mmol/L (3.5-5.1)
--- NOTE | 2017-12-08 06:53 | NUR ---
RN CLOSING NOTES NO SIGNIFICANT CHANGES IN Pt's CONDITION. Pt REMAINS STABLE AT THIS TIME. NO S/S OF ACUTE DISTRESS OR SEVERE SOB NOTED DURING THE NIGHT. Pt RESTING IN BED WITH EVEN AND UNLABORED RESPIRATIONS, WITH EQUAL CHEST RISE AND FALL. TELE READING SR 74. ALL NEEDS MET AND ATTENDED TO. SAFETY MEASURES IN PLACE. WILL ENDORSE TO DAYSHIFT RN FOR Pt's ALLISON.
[2017-12-08] MEDS ORDERED: BLOOD SUGAR DIAGNOSTIC 1 EACH STRIP IN SCH (07:30)
--- NOTE | 2017-12-08 07:30 | NUR ---
ms rn receive don bed, awake,aler,oriented x3,not in any form of distress, respirations even and unlabored,no sob noted, lungs are clear,abdomen soft,positive bowel sounds, denies pain at this time,occasional coughing noted, will monitor patient.
[2017-12-08 08:00] VITALS: BP 104/62
[2017-12-08] MEDS ORDERED: MOM PO PRN (08:30)
[2017-12-08] MEDS: BLOOD SUGAR DIAGNOSTIC 1 EACH STRIP IN SCH ×4 (08:30→21:26)
[2017-12-08] MEDS ORDERED: MONTELUKAST SODIUM (10MG) 10 MG TABLET PO SCH (09:00)
[2017-12-08] MEDS ORDERED: BENZTROPINE MESYLATE (1 MG) 1 MG TABLET PO SCH (09:00)
[2017-12-08] MEDS ORDERED: HYDROCODONE/APAP 5/325MG 1 EACH TABLET PO SCH (09:00)
[2017-12-08] MEDS: risperiDONE 1 MG TABLET PO SCH ×2 (09:19→21:43)
[2017-12-08] MEDS: AZITHROMYCIN 250 MG TABLET PO SCH (09:20)
[2017-12-08] MEDS: methylPREDNISolone SOD SUCC 40 MG/ML VIAL IV SCH ×3 (09:24→21:42)
[2017-12-08] MEDS: ENOXAPARIN SODIUM 40 MG/0.4 ML DISP.SYRIN SQ SCH (09:26)
--- NOTE | 2017-12-08 09:45 | NUR ---
ms lakhani breakfast served,due meds given,tolerated well.
--- NOTE | 2017-12-08 11:50 | NUR ---
ms lakhani bs - 119 - no coverage given.
[2017-12-08] MEDS ORDERED: [UNRECOGNIZED DRUG - OTHER] IN SCH (12:00)
[2017-12-08 16:00] VITALS: BP 135/87
[2017-12-08] MEDS: MONTELUKAST SODIUM (10MG) 10 MG TABLET PO SCH (17:37)
[2017-12-08] MEDS ORDERED: ATORVASTATIN 10 MG TABLET PO SCH (18:00)
--- NOTE | 2017-12-08 18:00 | NUR ---
MS RN TEXTED DR. NAIR FOR SEROQUEL ORDER.
--- NOTE | 2017-12-08 18:28 | NUR ---
MS RN ON BED, NO DISTRESS NOTED,ALL NEEDS ATTENDED.
[2017-12-08] MEDS: QUETIAPINE FUMARATE 25 MG TABLET PO SCH (18:32)
--- NOTE | 2017-12-08 19:25 | NUR ---
KNIFE MACHINE OPERATOR NOTES SR-67 ON TELE MONITOR.ON BED A/O X3,BREATHING NON LABORED,O2 IN USED AT 2L/NC TO KEEP O2 SAT ABOVE 90%.SALINE LOCK RFA INTACT AND PATENT.CALL LIGHT IN REACH,NEEDS ANTICIPATED.WILL CONTINUE TO MONITOR STATUS.
[2017-12-08 20:00] VITALS: BP 124/66
--- NOTE | 2017-12-08 20:48 | NUR ---
NAVAL MARINE ENGINEER NOTES PAIN MANAGEMENT C/O LEFT HIP PAIN 5/10 ON PAIN SCALE,MEDICATED WITH NORCO 5/325MG.1TAB PO GIVEN ORDERED.
--- NOTE | 2017-12-08 21:03 | NUR ---
DIRT SHOVELER NOTES STARTED ON NS AT 100ML/HR RATE ORDERED INFUSING VIA IV PUMP
--- NOTE | 2017-12-08 21:30 | NUR ---
WINDOW GLASS INSTALLER NOTES ACCU-CHECK BLOOD SUGAR CHECK 169.COVERED WITH HUMULIN R 3 UNITS PER SLIDING SCALE.SNACKS PROVIDED AT BEDSIDE. Addendum: 12/08/17 at 2226 by HELEN SOLORIO RN ABOVE BLOOD SUGAR COVERED WITH INSULIN LISPRO 3 UNITS.
[2017-12-08] MEDS: INSULIN ASPART/LISPRO 100 UNIT/ML CARTRIDGE SQ PRN (21:46)
[2017-12-09] VITALS: BP_SYST 121; BP_DIAS 61; BP_DIAS 68
[2017-12-09] MEDS: HYDROCODONE/APAP 5/325MG 1 EACH TABLET PO PRN ×2 (02:15→18:39)
--- NOTE | 2017-12-09 02:15 | NUR ---
CRAB BACKER NOTES C/O LEFT HIP PAIN 6/10 ON PAIN SCALE,NORCO 5/325MG,1 TAB PO GIVEN PER PATIENT REQUEST.
[2017-12-09] MEDS: ALBUTEROL HALF STRENGTH 1.25 MG/3 ML VIAL.NEB NEB SCH ×5 (03:52→19:27)
[2017-12-09] MEDS: IPRATROPIUM NEB FS 0.5 MG/2.5 ML AMPUL.NEB NEB SCH ×5 (03:52→19:27)
[2017-12-09 04:00] VITALS: BP 140/77
[2017-12-09] MEDS: methylPREDNISolone SOD SUCC 40 MG/ML VIAL IV SCH ×3 (05:05→21:16)
--- NOTE | 2017-12-09 05:30 | NUR ---
WHEEL PRESSER NOTES ACCU-CHECK BLOOD SUGAR CHECK 157,COVERED WITH INSULIN LISPRO 2 UNITS PER SLIDING SCALE.
[2017-12-09] MEDS: BLOOD SUGAR DIAGNOSTIC 1 EACH STRIP IN SCH ×4 (05:47→21:16)
[2017-12-09] MEDS: INSULIN ASPART/LISPRO 100 UNIT/ML CARTRIDGE SQ PRN ×4 (05:49→21:29)
--- NOTE | 2017-12-09 06:21 | NUR ---
HARBOR MASTER NOTES IN BED A/O X3-4,BREATHING REGULAR,NO SOB,BREATHING TREATMENT TOLERATED WELL.ACID REFLUX SUBSIDED WITH THE HELP OF WARM TEA.O2 IN USED TO KEEP O2 SAT ABOVE 88%.IN NO ACUTE DISTRESS.WILL ENDORSE TO DAY NURSE FOR ALLISON..CALL LIGHT IN REACH,NEEDS ATTENDED.
--- NOTE | 2017-12-09 07:35 | NUR ---
AUTOMOTIVE REPAIR TECHNICIAN OPENING NOTE PATIENT IS ALERT AND ORIENTED x3. NO PAIN AT THIS TIME. NO SOB OR DISTRESS NOTED, ON 2L/MIN OF OXYGEN VIA NASAL CANNULA TOLERATING WELL. ABLE TO COMMUNICATE NEEDS. TELE-SR 60s. BLOOD SUGAR TO BE MONITORED THROUGHOUT SHIFT. IV INTACT AND PATENT NO REDNESS OR SWELLING NOTED. CALL LIGHT WITHIN REACH. SAFETY MEASURES IMPLEMENTED. WILL CONTINUE TO MONITOR THROUGHOUT SHIFT
[2017-12-09 08:00] VITALS: BP 142/82
[2017-12-09] MEDS: ENOXAPARIN SODIUM 40 MG/0.4 ML DISP.SYRIN SQ SCH (08:19)
[2017-12-09] MEDS: QUETIAPINE FUMARATE 25 MG TABLET PO SCH ×2 (08:19→16:50)
[2017-12-09] MEDS: risperiDONE 1 MG TABLET PO SCH ×2 (08:19→21:16)
[2017-12-09] MEDS: BENZTROPINE MESYLATE (1 MG) 1 MG TABLET PO SCH ×2 (08:19→16:50)
[2017-12-09] MEDS: AZITHROMYCIN 250 MG TABLET PO SCH (08:19)
--- NOTE | 2017-12-09 09:30 | NUR ---
OPERATIONS VOCATIONAL INSTRUCTOR NOTE PAGED DR. NAIR FOR ANXIETY MEDICATION. AWAITING CALL BACK Addendum: 12/09/17 at 0953 by NAHUN RHODES RN RECEIVED CALL BACK FROM DR. NAIR FOR KLONOPIN 1MG PO Q6HR PRN. ORDER NOTED AND CARRIED OUT
[2017-12-09] MEDS: clonazePAM 1 MG TABLET PO PRN (09:59)
--- NOTE | 2017-12-09 09:59 | NUR ---
NETWORK SECURITY ARCHITECT NOTE PATIENT REQUESTING KLONOPIN AT THIS TIME, PATIENT STATES SHE IS FEELING "VERY ANXIOUS RIGHT NOW". KLONOPIN 1MG PO GIVEN AT THIS TIME.
--- NOTE | 2017-12-09 11:39 | NUR ---
SCOOP OPERATOR NOTE BLOOD SUGAR CHECKED-162 INSULIN TO BE GIVEN ONCE FOOD AT BEDSIDE
--- NOTE | 2017-12-09 12:15 | NUR ---
INTERNET PROGRAMMER NOTE 3 UNITS OF INSULIN GIVEN, FOOD AT BEDSIDE
[2017-12-09 15:58] LABS: LEUKOCYTE ESTERASE ,URINE Negative (NEGATIVE)
[2017-12-09 16:00] VITALS: BP 140/89
[2017-12-09] MEDS: MONTELUKAST SODIUM (10MG) 10 MG TABLET PO SCH (17:00)
--- NOTE | 2017-12-09 18:40 | NUR ---
SENIOR QUALITY TECHNICIAN CLOSING NOTE PATIENT IS ALERT AND ORIENTED x4. NO PAIN AT THIS TIME. NO SOB OR DISTRESS NOTED. CALL LIGHT WITHIN REACH AT ALL TIMES. SAFETY MEASURES IMPLEMENTED. ALL DUE MEDICATIONS GIVEN ORDERED. ALL NURSING CARE NEEDS ATTENDED TO NEEDED. IV INTACT AND PATENT NO REDNESS OR SWELLING NOTED. ON 2L/MIN OF OXYGEN VIA NASAL CANNULA TOLERATING WELL. WILL ENDORSE TO MECHANICAL RELIABILITY ENGINEER NURSE FOR ALLISON Addendum: 12/09/17 at 1842 by NAHUN RHODES RN NORCO PRN GIVEN PER PATIENTS REQUEST FOR 01/04 PAIN ON LEFT HIP AREA
--- NOTE | 2017-12-09 19:45 | NUR ---
SIDE DOOR WORKER NOTES RECEIVED ON BED A/O X 3,BREATHING NON LABORED,SALINE LOCK RFA INTACT AND PATENT.SITTER AT BEDSIDE FOR SAFETY.O2 IN USED TO KEEP O2 SAT ABOVE 88%.CALL LIGHT IN REACH,NEEDS ANTICIPATED.
[2017-12-09 20:00] VITALS: BP 140/85
[2017-12-09] MEDS: ATORVASTATIN 10 MG TABLET PO SCH (21:16)
--- NOTE | 2017-12-09 21:30 | NUR ---
MGMT CONSULTANT NOTES ACCU-CHECK BLOOD SUGAR CHECK 180,COVERED WITH INSULIN LISPRO 3 UNITS PER SLIDING SCALE.
[2017-12-10] VITALS: BP 137/76
[2017-12-10] MEDS: IPRATROPIUM NEB FS 0.5 MG/2.5 ML AMPUL.NEB NEB SCH ×7 (00:18→23:49)
[2017-12-10] MEDS: ALBUTEROL HALF STRENGTH 1.25 MG/3 ML VIAL.NEB NEB SCH ×7 (00:18→23:49)
--- NOTE | 2017-12-10 00:30 | NUR ---
PHLEBOTOMY SERVICES TECHNICIAN NOTES SALINE LOCK PULLED OUT BY PATIENT.NEW SALINE LOCK PLACE ON LFA #22,SECURED WITH KERLIX.SITTER AT BEDSIDE.
[2017-12-10] MEDS: HYDROCODONE/APAP 5/325MG 1 EACH TABLET PO PRN ×3 (01:21→20:47)
[2017-12-10 04:00] VITALS: BP 135/66
[2017-12-10] MEDS: methylPREDNISolone SOD SUCC 40 MG/ML VIAL IV SCH ×3 (05:01→20:47)
[2017-12-10] MEDS: BLOOD SUGAR DIAGNOSTIC 1 EACH STRIP IN SCH ×4 (05:11→20:59)
[2017-12-10] MEDS: INSULIN ASPART/LISPRO 100 UNIT/ML CARTRIDGE SQ PRN ×4 (05:15→21:19)
--- NOTE | 2017-12-10 07:43 | NUR ---
OWNER MANAGER NOTES NO SIGNIFICANT CHANGE IN STATUS.POSSIBLE D/C TO [facility] WHEN MEDICALLY CLEARED,ENDORSED TO JOSELITO JULIAN FOR ALLISON.
--- NOTE | 2017-12-10 07:44 | NUR ---
RN CORONARY CARE UNIT/OPENING NOTES 1:1 SITTER AT BEDSIDE. RECEIVED PT. IN BED A&OX3. TELE READING SINUS RHYTHM, BREATHING UNLABORED, AND EVENLY ON OXYGEN WITH COOL AEROSOL AT 3L/MIN VIA NASAL CANNULA. PT. DENIES PAIN. IV INTACT. BED IS IN LOWEST, AND LOCKED POSITION. 2 SIDE RAILS UP, AND INSTRUCTED PT. TO USE CALL LIGHT FOR ASSISTANCE. ALL NEEDS MET. WILL CONTINUE TO ASSESS AND MONITOR.
--- NOTE | 2017-12-10 08:16 | NUR ---
TELE MONITORING WAS DISCONTINUED PER MD.
[2017-12-10] MEDS: AZITHROMYCIN 250 MG TABLET PO SCH (08:18)
[2017-12-10] MEDS: risperiDONE 1 MG TABLET PO SCH ×2 (08:18→20:47)
[2017-12-10] MEDS: BENZTROPINE MESYLATE (1 MG) 1 MG TABLET PO SCH ×2 (08:18→17:36)
[2017-12-10] MEDS: QUETIAPINE FUMARATE 25 MG TABLET PO SCH ×2 (08:19→17:28)
[2017-12-10] MEDS: ENOXAPARIN SODIUM 40 MG/0.4 ML DISP.SYRIN SQ SCH (08:28)
[2017-12-10] MEDS: clonazePAM 1 MG TABLET PO PRN ×2 (13:03→21:16)
[2017-12-10] MEDS: MONTELUKAST SODIUM (10MG) 10 MG TABLET PO SCH (17:28)
--- NOTE | 2017-12-10 17:45 | NUR ---
RN NOTES PT. HAD AN EPISODE OF RESPIRATORY DISTRESS. PT.'S COUGH PROGRESSIVELY GOT WORSE, SOUNDED PRODUCTIVE, WITH LABORED BREATHING, LIPS TURNING PALLOR, AND INCREASE IN DROWSINESS. RESPIRATORY THERAPY WAS NOTIFIED. PT. WAS ON NASAL CANNULA BREATHING OXYGEN AT 2L/MIN AND MD WAS CONTACTED ABOUT PT.'S CONDITION.
--- NOTE | 2017-12-10 18:00 | NUR ---
RN DEB FARAH ELEVATOR ERECTOR HELPER WAS CONTACTED ABOUT PT.'S CONDITION, AND NEW STAT ORDERS WERE GIVEN, CHEST X RAY, ABG'S, AND 80 MG OF SOLU MEDROL IV PUSH.
[2017-12-10] MEDS ORDERED: methylPREDNISolone SOD SUCC 40 MG/ML VIAL IV ONE (19:00)
--- NOTE | 2017-12-10 19:00 | NUR ---
MS ELIEL OPENING NOTE RECEIVE PATIENT IS RESTING IN BED, A/O X 1 1:1 SITTER AT BEDSIDE, NO FACIAL GRIMACING NOTED FOR PAIN. NO SOB OR DISTRESS NOTED, CALL LIGHT WITHIN REACH. SAFETY MEASURES IMPLEMENTED. WILL CONTINUE TO MONITOR THROUGHOUT SHIFT. Addendum: 12/11/17 at 0627 by SHRAVAN DANIELS RN CORRECTION PT A/O X 3 WITH PERIOD OF FORGETFULNESS
--- NOTE | 2017-12-10 19:00 | NUR ---
RT NOTE PATIENT AWAKE, ALERT AND RESPONSIVE. ATTEMPTED ABG BUT PATIENT REFUSED TO BE POKED AGAIN. PRIMARY NURSE AWARE. PATIENT IN STABLE CONDITION WITH NO SIGNS OF RESPIRATORY DISTRESS AT THIS TIME. PATIENT SpO2 92-93% ON 2LPM. WILL CONTINUE TO MONITOR.
--- NOTE | 2017-12-10 19:44 | NUR ---
RN CLOSING NOTES 1:1 SITTER AT BEDSIDE. PT. IS IN BED A&OX3. BREATHING UNLABORED, AND EVENLY ON OXYGEN AT 2L/MIN VIA NASAL CANNULA, O2 SAT 90%. PT. DENIES PAIN. IVP SOLU MEDROL WAS GIVEN. CHEST X RAY WAS PERFORMED, AND PT. REFUSED ABG'S DUE TO PAIN DURING BLOOD DRAW. BED IS IN LOWEST, AND LOCKED POSITION. 2 SIDE RAILS UP, AND INSTRUCTED PT. TO USE CALL LIGHT FOR ASSISTANCE. ALL NEEDS MET. WILL ENDORSE REPORT TO NURSE.
[2017-12-10 20:00] VITALS: BP 154/88
[2017-12-10] MEDS: ATORVASTATIN 10 MG TABLET PO SCH (21:16)
[2017-12-11] MEDS: IPRATROPIUM NEB FS 0.5 MG/2.5 ML AMPUL.NEB NEB SCH ×4 (03:55→15:32)
[2017-12-11] MEDS: ALBUTEROL HALF STRENGTH 1.25 MG/3 ML VIAL.NEB NEB SCH ×4 (03:55→15:33)
[2017-12-11] MEDS: methylPREDNISolone SOD SUCC 40 MG/ML VIAL IV SCH ×2 (05:15→12:06)
[2017-12-11] MEDS: BLOOD SUGAR DIAGNOSTIC 1 EACH STRIP IN SCH ×3 (05:40→17:07)
[2017-12-11] MEDS: INSULIN ASPART/LISPRO 100 UNIT/ML CARTRIDGE SQ PRN ×2 (05:41→12:10)
--- NOTE | 2017-12-11 06:27 | NUR ---
MS RN CLOSING NOTES PT COMFORTABLY ASLEEP AND EASILY AWAKEN, TOLERATING ROOM AIR 96% IN STABLE CONDITION. RESPIRATION EVEN AND UNLABORED. KEPT CLEAN AND DRY AND COMFORTABLE, ALL NURSING CARE RENDERED. NEEDS ATTENDED AND ANTICIPATED, GOOD SKIN CARE PROVIDED. FREQUENT VISUAL CHECK DONE FOR SAFETY EVERY 2 HOURS. ON LOW BED AT ALL TIMES TO ENSURE SAFETY. SAFE HAZARD FREE ENVIRONMENT PROVIDED. NO COMPLAINS OF PAIN. CALL LIGHT WITHIN EASY TO REACH. WILL ENDORSE NEXT SHIFT CONTINUITY OF CARE. Addendum: 12/11/17 at 0647 by SHRAVAN DANIELS RN CORRECTION PT ON 2LPM 02 SAT AT 94%
--- NOTE | 2017-12-11 06:47 | NUR ---
ON 2LPM NC 02 SAT AT 94%
--- NOTE | 2017-12-11 07:40 | NUR ---
M/S RN - Assessment Patient awake, A/O x 2, confused, reality orientation provided, sitter at bedside for close monitoring and safety due to high fall risk. Patient denies pain, no apparent distress seen, currently on 2 lpm via nasal cannula. Saline lock on the LFA with no signs of infiltration. All needs attended and met. Fall precautions maintained. Patient refused ARU or SNF and prefers to go back to [facility]. Will notify Dr. Fisher. Will continue with current medical management.
[2017-12-11 08:00] VITALS: BP 154/86
[2017-12-11] MEDS: ENOXAPARIN SODIUM 40 MG/0.4 ML DISP.SYRIN SQ SCH (08:28)
[2017-12-11] MEDS: BENZTROPINE MESYLATE (1 MG) 1 MG TABLET PO SCH ×2 (08:28→17:06)
[2017-12-11] MEDS: QUETIAPINE FUMARATE 25 MG TABLET PO SCH ×2 (08:28→17:06)
[2017-12-11] MEDS: risperiDONE 1 MG TABLET PO SCH (08:29)
[2017-12-11] MEDS: AZITHROMYCIN 250 MG TABLET PO SCH (08:29)
[2017-12-11] MEDS: clonazePAM 1 MG TABLET PO PRN (12:05)
[2017-12-11] MEDS: HYDROCODONE/APAP 5/325MG 1 EACH TABLET PO PRN (15:57)
[2017-12-11 16:01] VITALS: BP 132/80
[2017-12-11] MEDS: MONTELUKAST SODIUM (10MG) 10 MG TABLET PO SCH (17:06)
--- NOTE | 2017-12-11 18:20 | NUR ---
M/S RN - Discharge Patient feeling better, A/O x 3, discharged to [facility] in stable condition. Reviewed discharge instructions with Bea and she verbalized full understanding of all teachings including medication management and oxygen use to keep Sp02 above 88%. All belongings with pt and she denies any missing items. VSS, denies pain, no c/o SOB, currently on 2lpm via NC, no apparent distress seen. Heplock removed on the LFA with catheter tip intact, no redness and no swelling noted at the site. Pt refused photo to be taken on sacral area, no open wound seen. Endorsed to ambulance crew accordingly. Family notified of discharge.
== END 2017-12-11 18:20 | DRG 133 ==
LOC: ER 19:47 → TELE 21:11 → MED 12-10 08:31
PROVIDERS: ADMIT Internal Medicine; ATTEND Internal Medicine
DX: J96.01 Acute respiratory failure with hypoxia (principal); G93.40 Encephalopathy, unspecified; D69.6 Thrombocytopenia, unspecified; J44.1 Chronic obstructive pulmonary disease with (acute) exacerbation; F03.90 Unspecified dementia, unspecified severity, without behavioral disturbance, psychotic disturbance, mood disturbance, and anxiety; K21.9 Gastro-esophageal reflux disease without esophagitis; F29 Unspecified psychosis not due to a substance or known physiological condition; I25.10 Atherosclerotic heart disease of native coronary artery without angina pectoris; M19.90 Unspecified osteoarthritis, unspecified site; Z88.5 Allergy status to narcotic agent; Z88.8 Allergy status to other drugs, medicaments and biological substances; Z79.899 Other long term (current) drug therapy; F17.200 Nicotine dependence, unspecified, uncomplicated; B34.9 Viral infection, unspecified; Z79.51 Long term (current) use of inhaled steroids
CPT/HCPCS: 36415; 36600; 71045-TC; 76705-TC; 80048-TC; 80076-TC; 81000-TC; 82803-TC; 82962-TC; 83605-TC; 84484-TC; 85025-TC; 85730-TC; 87040-TC; 87081-TC; 87086-TC; 94799-TC; 97116-TC; 97530-TC; A4606; J1650; J1815; J1956; J2920; J2930; Z7610

== ENCOUNTER 2019-11-23 12:35 | Inpatient (IN) | payer MEDICARE, OTHER ==
[~2019-11-23] VITALS: Ht 157.5 cm; Wt 51.7 kg
[~2019-11-23 12:35] MED LIST changes: -ALBU18HF2 IH; +ATOR10TA PO; +HYDR-4384 PO; -HYDR-552 PO; -MAGN2400 PO; +MAGN24002 PO; -RISP0.2515 PO; +RISP2TAB5 PO
--- NOTE | 2019-11-23 12:48 | NUR ---
CARMEN FROM [facility] TO ER BED 6. AAOX3. NOT IN RESP DISTRESS. BROUGHT IN ON GURNEY. C/O FEVER SINCE THIS MORNING. FACILTY CALLED TO REPORT THAT PT WAS NOTED WITH TEMP OF 102 AND WAS GIVEN TYLENOL 650MG @ 0930, CHILLS AND VOMMITED X 2 EPISODE. SHE WAS TESTED FOR COVID ON NOVEMBER 01 W/ NEGATIVE RESULT. PT'S TEMP AT THE ER WAS NOTED @ 100.2. AWAITING MD FOR EVAL.
--- NOTE | 2019-11-23 12:48 | NUR ---
CARMEN FROM [facility] TO ER BED 6. AAOX3. NOT IN RESP DISTRESS. BROUGHT IN ON GURNEY. C/O FEVER SINCE THIS MORNING. FACILTY CALLED TO REPORT THAT PT WAS NOTED WITH TEMP OF 102 AND WAS GIVEN TYLENOL 650MG @ 0930, COUGH X 2 WEEKS, CHILLS AND VOMMITED X 2 EPISODE. SHE WAS TESTED FOR COVID ON NOVEMBER 01 W/ NEGATIVE RESULT. PT'S TEMP AT THE ER WAS NOTED @ 100.2. AWAITING MD FOR EVAL.
[2019-11-23] MEDS ORDERED: IV NS 0.9% 1,000 ML IV ONE (12:52)
[2019-11-23] MEDS ORDERED: ONDANSETRON HCL/PF 4 MG/2 ML VIAL ONE (13:00)
[2019-11-23] MEDS ORDERED: ACETAMINOPHEN ES 500 MG TABLET PO ONE (13:00)
[2019-11-23] MEDS ORDERED: IV NS 0.9% 500 ML IV ONE (13:00)
[2019-11-23] MEDS ORDERED: ONDANSETRON HCL/PF 4 MG/2 ML VIAL IVP ONE (13:00)
[2019-11-23] MEDS ORDERED: AZITHROMYCIN 500 MG in IV D5W 250 ML IV ONE (13:00)
[2019-11-23] MEDS ORDERED: ACETAMINOPHEN ES 500 MG TABLET ONE (13:00)
[2019-11-23] MEDS ORDERED: DIVA125C5 PO (13:01)
[2019-11-23] MEDS ORDERED: OXYC-128 PO (13:01)
[2019-11-23] MEDS ORDERED: RISP0.2515 PO (13:01)
[2019-11-23] MEDS ORDERED: LORA-259 PO (13:01)
[2019-11-23] MEDS ORDERED: QUET25TA PO ×2 (13:01)
[2019-11-23] MEDS ORDERED: SERT25TA PO (13:01)
[2019-11-23] MEDS ORDERED: AMLO5TAB4 PO (13:01)
[2019-11-23] MEDS ORDERED: PANT20TA2 PO (13:01)
--- NOTE | 2019-11-23 13:02 | NUR ---
ADMITTING ORDERS RECEIVED FROM DR BILL VIA TELEPHONE.
[2019-11-23] MEDS ORDERED: POTA-10 PO (13:05)
--- NOTE | 2019-11-23 13:16 | NUR ---
DR BILL CALLED AND SPOKE WITH DR VARGAS
--- NOTE | 2019-11-23 13:16 | NUR ---
TURNED IN MOVE SHEET
[2019-11-23 13:25] LABS: BASOPHILS # (AUTO) 0.1 /CMM (0.0-0.2); BASOPHILS % (AUTO) 0.7 % (0.0-2.0); EOSINOPHILS % (AUTO) 0.1 % (0.0-6.0); HEMATOCRIT 38 % (33-45); HEMOGLOBIN 12.7 g/dL (11.5-14.8); LYMPHOCYTES # (AUTO) 0.3 /CMM (0.8-4.8); LYMPHOCYTES % (AUTO) 1.8 % (20.0-44.0); MEAN CORPUSCULAR HGB CONC 33 g/dl (31.0-36.0); MEAN CORPUSCULAR VOLUME 97 fL (82-100); MONOCYTES # (AUTO) 0.7 /CMM (0.1-1.30); MONOCYTES % (AUTO) 3.9 % (2.0-12.0); NEUTROPHILS # (AUTO) 17.7 /CMM (1.8-8.9); NEUTROPHILS % (AUTO) 93.5 % (43.0-81.0); PLATELET COUNT (AUTO) 168 /CMM (150-450); RED BLOOD CELL COUNT(AUTO) 3.96 MIL/uL (4.0-5.2); WHITE BLOOD COUNT (AUTO) 18.9 K/uL (4.3-11.0)
--- NOTE | 2019-11-23 13:25 | NUR ---
IV LINE OBTAINED ON L AC 18G, BLOOD RAWNA ND GIVEN TO SOLUTION ARCHITECT AT BEDSIDE. COVID SWAB DONE AND SENT TO LAB
--- NOTE | 2019-11-23 13:30 | NUR ---
PT IS BASELINE USING 02 @ 2LPM AT THE FACILITY
[2019-11-23 13:33] LABS: CALCIUM, SERUM 9.6 mg/dL (8.5-10.1); CREATININE 0.8 mg/dL (0.6-1.3); POTASSIUM 3.8 mmol/L (3.5-5.1)
[2019-11-23 13:46] LABS: ALBUMIN 3.8 g/dL (3.4-5.0); BILIRUBIN,TOTAL 0.3 mg/dL (0.2-1.0); TOTAL PROTEIN, SERUM 7.6 g/dL (6.4-8.2)
--- NOTE | 2019-11-23 13:56 | NUR ---
URINE COLLECTED VIA STAIGHT CATH WITH STRICT STERILE TECHNIQUE PER MD ORDER. URINE SENT TO LAB
[2019-11-23] MEDS ORDERED: ASPIRIN 325 MG TABLET ONE (13:58)
[2019-11-23 14:00] LABS: APPEARANCE,URINE Clear (CLEAR); BILIRUBIN,URINE Negative (NEGATIVE); BLOOD, URINE Moderate Ery/uL (NEGATIVE); COLOR,URINE Yellow (YELLOW); KETONES,URINE Negative (NEGATIVE); LEUKOCYTE ESTERASE ,URINE Negative (NEGATIVE); NITRITE, URINE Negative (NEGATIVE); PH,URINE 8.5 (5.0-8.0); PROTEIN,URINE 30 mg/dl (NEGATIVE); UGLUCOSE Negative (NEGATIVE); UROBILINOGEN,URINE 0.2 EU/dL (0.2)
[2019-11-23] MEDS ORDERED: ASPIRIN EC 325 MG TABLET.DR PO ONE (14:00)
--- NOTE | 2019-11-23 14:02 | NUR ---
PT PROVIDED WITH MEAL
[2019-11-23 14:04] LABS: BACTERIA,URINE Few /HPF (None Seen); SQUAMOUS EPITHELIAL CELL,UR Few /HPF (None Seen); WBC,URINE 0-2 /HPF (0-3)
--- NOTE | 2019-11-23 14:22 | NUR ---
call from alexis,rn field case manager,gave verbal auth for obs
[2019-11-23 14:31] LABS: C-REACTIVE PROTEIN 3.7 mg/dL (0.0-0.9)
--- NOTE | 2019-11-23 14:32 | NUR ---
REPORT GIVEN TO ELIEL LANDRY FOR ALLISON
--- NOTE | 2019-11-23 14:57 | NUR ---
PT TRANSPORTED TO UNIT ON [facility] EMT AND RN AT BEDSIDE W/ ACLS PROTOCOL. NAD NOTED DURING TRANSPORT
--- NOTE | 2019-11-23 14:57 | NUR ---
RN OPENING NOTES PT RECEIVED FROM ER VIA [facility] A/A/O X3. THERE IS NO S/S OF DISTRESS. PT HAS UNLABORED BREATHING ON 2 L VIA NC. ASSISSTED PT TO BED.VS TAKEN AND STABLE. PT HAS IV ON R HAND 22G DRESSING INTACT/DRY AND PATENT.PT IS ON TELE MONITOR SHOWING SR HR IN 80s. SAFETY MEASURES IN PLACE BED AT LOWEST POSITION,LOCKED, CALL LIGHT WITHIN REACH SIDE RAILS UP X2.WAITING FOR ADMISSION ORDER. WILL CONTINUE TO MONITOR
--- NOTE | 2019-11-23 15:00 | NUR ---
PT IS ADMITTED TO HOSPITAL. NOT SENT BACH TO FACILITY. CLICKED WRONG ON DISPO ASSESSMENT
[2019-11-23 15:10] VITALS: BP 131/75
[2019-11-23 16:00] VITALS: BP 126/60
[2019-11-23] MEDS ORDERED: ACETAMINOPHEN 325 MG TABLET PO PRN (17:00)
[2019-11-23] MEDS: BENZTROPINE MESYLATE (1 MG) 1 MG TABLET PO SCH (17:23)
[2019-11-23] MEDS: oxyCODONE/APAP (5/325 MG) 1 UDTAB TABLET PO SCH (17:24)
[2019-11-23] MEDS: QUETIAPINE FUMARATE 25 MG TABLET PO SCH (17:25)
[2019-11-23] MEDS: LORAZEPAM 1 MG TABLET PO SCH (17:25)
--- NOTE | 2019-11-23 18:00 | NUR ---
RN CLOSING NOTES PT IS RESTING IN THE BED COMFORTABLY, PT IS A/A/O X3. THERE IS NO S/S DISTRESS, PT HAS UNLABORED BREATHING PT IS ON 2 L VIA NC SATTING 98%. . SAFETY MEASURES IN PLACE BED IAT LOWST POSITION, LOCKED, CALL LIGHT WITHIN IN REACH, SIDE RAILS UP X2. I WILL ENDORSE TO INCOMING SHIFT FOR CONTINUITY OF CARE.
[2019-11-23] MEDS: IV NS 0.9% 1,000 ML IV PRN (18:26)
[2019-11-23] MEDS: CEFTRIAXONE 1 G in IV D5W 50 ML IV SCH (18:26)
--- NOTE | 2019-11-23 19:18 | NUR ---
RN OPENING NOTE PT IS AWAKE WITH HOB ELEVATED, PT A/O X3. PT IN NO DISTRESS ON O2 2 L/MIN VIA NC., SR ON TELE MONITOR, IV TO RT HAND PATENT, INTACT AND FLUSHING WELL. NS INFUSING AT 75 ML/HR. SAFETY MEASURES IN PLACE, BED IN LOWEST POSITION AND LOCKED, SIDE RAILS UP X 2. CALL LIGHT WITHIN IN REACH, WILL CONT. TO MONITOR PT.
[2019-11-23 20:00] VITALS: BP 99/60
[2019-11-23] MEDS: methylPREDNISolone SOD SUCC 40 MG/ML VIAL IV SCH (21:12)
[2019-11-23] MEDS: MONTELUKAST SODIUM (10MG) 10 MG TABLET PO SCH (21:12)
[2019-11-23] MEDS: DIVALPROEX SODIUM 125 MG CAP.SPRINK PO SCH (21:12)
[2019-11-23] MEDS: ATORVASTATIN 10 MG TABLET PO SCH (21:12)
[2019-11-23] MEDS: risperiDONE 0.25 MG TABLET PO SCH (21:24)
[2019-11-24] VITALS: BP 111/63
[2019-11-24 04:00] VITALS: BP 91/61
[2019-11-24] MEDS: DIVALPROEX SODIUM 125 MG CAP.SPRINK PO SCH ×3 (05:06→21:03)
[2019-11-24] MEDS: methylPREDNISolone SOD SUCC 40 MG/ML VIAL IV SCH (05:06)
[2019-11-24 06:30] LABS: BASOPHILS % (AUTO) 0.1 % (0.0-2.0); HEMATOCRIT 33 % (33-45); HEMOGLOBIN 11.1 g/dL (11.5-14.8); LYMPHOCYTES % (AUTO) 4.6 % (20.0-44.0); MEAN CORPUSCULAR HGB CONC 33 g/dl (31.0-36.0); MEAN CORPUSCULAR VOLUME 97 fL (82-100); NEUTROPHILS % (AUTO) 94.3 % (43.0-81.0); PLATELET COUNT (AUTO) 135 /CMM (150-450); RED BLOOD CELL COUNT(AUTO) 3.43 MIL/uL (4.0-5.2); WHITE BLOOD COUNT (AUTO) 16.1 K/uL (4.3-11.0)
[2019-11-24 06:31] LABS: LYMPHOCYTES # (AUTO) 0.7 /CMM (0.8-4.8); MONOCYTES # (AUTO) 0.2 /CMM (0.1-1.30); NEUTROPHILS # (AUTO) 15.1 /CMM (1.8-8.9)
--- NOTE | 2019-11-24 06:33 | NUR ---
RN CLOSING NOTE PT IS ASLEEP WITH HOB ELEVATED, PT IN NO DISTRESS ON O2 2 L/MIN VIA NC., SB 40-50'S ON TELE MONITOR WHEN ASLEEP, IV TO RT HAND PATENT, INTACT AND FLUSHING WELL. NS INFUSING AT 75 ML/HR. SAFETY MEASURES IN PLACE, BED IN LOWEST POSITION AND LOCKED, SIDE RAILS UP X 2. CALL LIGHT WITHIN IN REACH, ENDORSED TO AM RN FOR ALLISON
[2019-11-24 07:10] LABS: CALCIUM, SERUM 8.6 mg/dL (8.5-10.1); CREATININE 0.8 mg/dL (0.6-1.3); POTASSIUM 4.6 mmol/L (3.5-5.1)
[2019-11-24 08:00] VITALS: BP 123/56
--- NOTE | 2019-11-24 08:00 | NUR ---
RN OPENING NOTES PT RECEIVED LAYING DOWN IN THE BED COMFORTABLY.PT IS A/A/OX3. THERE IS NO S/S OF DISTRESS. PT HAS UNLABORED BREATHING, PT IS ON 2 L VIA NC SATING 95. PT HAS IV ON RH 22 G NS RUNNING AT 75 ML/HR, DRESSING I/D. PT IS ON WANT AD CLERK SHOWING HR 70s SR. SAFETY MEASURES IN PLACE BED AT LOWEST POSITION,LOCKED, CALL LIGHT IN REACH, SIDE RAILS UPX2.WILL CONTINUE TO MONITOR.
[2019-11-24] MEDS: SERTRALINE HCL 25 MG TABLET PO SCH (08:34)
[2019-11-24] MEDS: LORAZEPAM 1 MG TABLET PO SCH ×3 (08:34→17:45)
[2019-11-24] MEDS: QUETIAPINE FUMARATE 25 MG TABLET PO SCH ×3 (08:34→17:46)
[2019-11-24] MEDS: BENZTROPINE MESYLATE (1 MG) 1 MG TABLET PO SCH ×2 (08:35→17:45)
[2019-11-24] MEDS: oxyCODONE/APAP (5/325 MG) 1 UDTAB TABLET PO SCH ×3 (08:35→17:46)
[2019-11-24] MEDS: AMLODIPINE BESYLATE 5 MG TABLET PO SCH (08:52)
[2019-11-24] MEDS: IV NS 0.9% 1,000 ML IV PRN (08:55)
[2019-11-24] MEDS: PANTOPRAZOLE 40 MG TABLET.DR PO SCH (09:09)
--- NOTE | 2019-11-24 11:20 | NUR ---
RN NOTE RELAYED TO DR BILL PATIENT C/O OF SOB AND REQUESTING FOR ALBUTEROL INHALER. TELEPHONE ORDER RECEIVED. PRIMARY NURSE AND PATIENT INFORMED OF NEW ORDER.
[2019-11-24 12:00] VITALS: BP 118/67
[2019-11-24] MEDS: ZITHROMAX 500 MG/250 ML D5W IV SCH ×2 (13:41)
[2019-11-24] MEDS: ALBUTEROL SULFATE 8 GM HFA.AER.AD IH PRN (13:50)
[2019-11-24 16:00] VITALS: BP 121/71
--- NOTE | 2019-11-24 18:00 | NUR ---
RN CLOSING NOTE PT IS RESTING IN THE BED COMFORTABLY. THERE IS NO S/S OF DISTRESS. PT HAS UNLABORED BREATHING. PT IS ON 2 L VIA NC SATTING 95%. NO ACUTE CHANGES DURING MY SHIFT.SAFETY MEASURES IN PLACE BED AT LOWEST POSITION, LOCKED, CALL LIGHT WITHIN REACH, SIDE RAILS UPX2. WILL ENDORSE TO INCOMING SHIFT FOR CONTINUITY OF CARE.
[2019-11-24] MEDS: CEFTRIAXONE 1 G in IV D5W 50 ML IV SCH (18:26)
--- NOTE | 2019-11-24 19:40 | NUR ---
RN OPENING NOTE RECEIVED PT IN BED A/O X 3, PT IS RESTING IN THE BED COMFORTABLY. PT IN NO DISTRESS. PT ON O2 2 L/MIN VIA NC, CURRENTLY SATURATING AT 97%. IV TO RIGHT HAND PATENT INTACT AND FLUSHING WELL. NS INFUSING AT 75 ML/HR. SAFETY MEASURES IN PLACE, BED IN LOWEST POSITION AND LOCKED. CALL LIGHT WITHIN REACH, SIDE RAILS UP X3 WILL CONTINUE TO MONITOR PT.
[2019-11-24 20:00] VITALS: BP_SYST 106; BP_SYST 158; BP_DIAS 47; BP_DIAS 66
[2019-11-24] MEDS: ATORVASTATIN 10 MG TABLET PO SCH (21:03)
[2019-11-24] MEDS: MONTELUKAST SODIUM (10MG) 10 MG TABLET PO SCH (21:03)
[2019-11-24] MEDS: risperiDONE 0.25 MG TABLET PO SCH (21:04)
[2019-11-25] VITALS: BP 108/49
[2019-11-25 04:00] VITALS: BP 137/63
[2019-11-25] MEDS: DIVALPROEX SODIUM 125 MG CAP.SPRINK PO SCH ×3 (05:04→21:25)
--- NOTE | 2019-11-25 06:33 | NUR ---
RN CLOSING NOTE PT IN BED ASLEEP. PT IN NO DISTRESS. PT ON O2 2 L/MIN VIA NC TOLERATING WELL,PT IN NO RESPIRATORY DISTRESS, \IV TO RIGHT HAND PATENT INTACT AND FLUSHING WELL. NS CURRENTLY INFUSING AT 75 ML/HR. SAFETY MEASURES IN PLACE, BED IN LOWEST POSITION AND LOCKED. CALL LIGHT WITHIN REACH, SIDE RAILS UP X2. ENDORSED TO AM RN FOR ALLISON
[2019-11-25 06:43] LABS: BASOPHILS % (AUTO) 0.1 % (0.0-2.0); EOSINOPHILS % (AUTO) 0.1 % (0.0-6.0); HEMATOCRIT 35 % (33-45); HEMOGLOBIN 11.5 g/dL (11.5-14.8); LYMPHOCYTES # (AUTO) 1.8 /CMM (0.8-4.8); LYMPHOCYTES % (AUTO) 13.8 % (20.0-44.0); MEAN CORPUSCULAR HGB CONC 33 g/dl (31.0-36.0); MEAN CORPUSCULAR VOLUME 98 fL (82-100); MONOCYTES # (AUTO) 0.5 /CMM (0.1-1.30); MONOCYTES % (AUTO) 4.2 % (2.0-12.0); NEUTROPHILS # (AUTO) 10.5 /CMM (1.8-8.9); NEUTROPHILS % (AUTO) 81.8 % (43.0-81.0); PLATELET COUNT (AUTO) 139 /CMM (150-450); RED BLOOD CELL COUNT(AUTO) 3.58 MIL/uL (4.0-5.2); WHITE BLOOD COUNT (AUTO) 12.8 K/uL (4.3-11.0)
[2019-11-25 06:55] LABS: CALCIUM, SERUM 8.7 mg/dL (8.5-10.1); CREATININE 0.6 mg/dL (0.6-1.3); POTASSIUM 3.9 mmol/L (3.5-5.1)
--- NOTE | 2019-11-25 07:52 | NUR ---
RN OPENING NOTE Patient is resting in bed, A/O x2-3, showing no signs of acute distress or SOB, breathing is even and unlabored, saturating >95% on 2L NC. Tele monitor sinus rhythm with PVCs. IV line in the right hand #22g is clean and intact. Bed is in lowest position, side rails x3 in upright position, call light is within reach, fall safety and aspiration precautions enforced. Will continue with plan of care.
[2019-11-25 08:00] VITALS: BP 120/74
[2019-11-25] MEDS: oxyCODONE/APAP (5/325 MG) 1 UDTAB TABLET PO SCH ×3 (08:03→16:20)
[2019-11-25] MEDS: PANTOPRAZOLE 40 MG TABLET.DR PO SCH (08:03)
[2019-11-25] MEDS: SERTRALINE HCL 25 MG TABLET PO SCH (08:04)
[2019-11-25] MEDS: QUETIAPINE FUMARATE 25 MG TABLET PO SCH ×3 (08:04→16:19)
[2019-11-25] MEDS: LORAZEPAM 1 MG TABLET PO SCH ×3 (08:04→16:20)
[2019-11-25] MEDS: AMLODIPINE BESYLATE 5 MG TABLET PO SCH (08:04)
[2019-11-25] MEDS: BENZTROPINE MESYLATE (1 MG) 1 MG TABLET PO SCH ×2 (08:04→16:19)
--- NOTE | 2019-11-25 09:54 | NUR ---
followup covid result still pending.
[2019-11-25 12:00] VITALS: BP_SYST 100; BP_SYST 90; BP_DIAS 47; BP_DIAS 49
[2019-11-25] MEDS: ZITHROMAX 500 MG/250 ML D5W IV SCH ×2 (12:37)
[2019-11-25] MEDS: IV NS 0.9% 1,000 ML IV PRN ×2 (15:02)
[2019-11-25 16:00] VITALS: BP 96/59
--- NOTE | 2019-11-25 16:21 | NUR ---
RN NOTE ATIVAN and PERCOCET held due to low BP 96/59 HR 62. Patient remains A/O x3, talking and sitting up, showing no signs of acute distress, saturating 98% on 2L NC. Will continue to monitor.
--- NOTE | 2019-11-25 17:33 | NUR ---
COVID RESULT FF. UP STILL PENDING.
[2019-11-25] MEDS: CEFTRIAXONE 1 G in IV D5W 50 ML IV SCH (17:59)
--- NOTE | 2019-11-25 18:28 | NUR ---
RN CLOSING NOTE Patient is resting in bed, A/O x2-3, showing no signs of acute distress or SOB, breathing is even and unlabored, saturating >95% on 2L NC. Tele monitor sinus rhythm with PVCs HR 60s. IV line in the right hand #22g is clean and intact running NS @ 75ml/hour. All patient needs, all due medications given, patient kept clean and dry throughout shift. Bed is in lowest position, side rails x3 in upright position, call light is within reach, fall safety and aspiration precautions enforced. Will endorse to date night sitter.
[2019-11-25 20:00] VITALS: BP 107/56
--- NOTE | 2019-11-25 20:00 | NUR ---
RN OPENING NOTE PT RECEIVED WATCHING TV IN THE BED .PT IS A/A/OX3. THERE IS NO S/S OF DISTRESS. PT HAS UNLABORED BREATHING, PT IS ON 2 L VIA NC SATING 96. PT HAS IV ON RH 22 G NS RUNNING AT 75 ML/HR, DRESSING I/D. PT IS ON CHEF UNDER SHOWING HR 70s SR. SAFETY MEASURES IN PLACE BED AT LOWEST POSITION,LOCKED, CALL LIGHT IN REACH, SIDE RAILS UPX2.WILL CONTINUE TO MONITOR.
[2019-11-25] MEDS: MONTELUKAST SODIUM (10MG) 10 MG TABLET PO SCH (21:25)
[2019-11-25] MEDS: ATORVASTATIN 10 MG TABLET PO SCH (21:25)
[2019-11-25] MEDS: risperiDONE 0.25 MG TABLET PO SCH (21:25)
[2019-11-26] VITALS: BP 111/46
--- NOTE | 2019-11-26 02:15 | NUR ---
RN NOTE CHARGE NURSE AWARE OF NEGATIVE RESULT FOR COVID 19.
[2019-11-26 04:00] VITALS: BP 131/52
[2019-11-26] MEDS: IV NS 0.9% 1,000 ML IV PRN ×2 (05:15→10:15)
[2019-11-26] MEDS: DIVALPROEX SODIUM 125 MG CAP.SPRINK PO SCH ×3 (05:26→21:16)
--- NOTE | 2019-11-26 06:00 | NUR ---
RN CLOSING NOTES PT IS SLEEPING IN THE BED COMFORTABLY. THERE IS NO S/S DISTRESS, PT HAS UNLABORED BREATHING. PT IS ON 2 L VIA NC SATTING 98%. . SAFETY MEASURES IN PLACE BED IAT LOWST POSITION, LOCKED, CALL LIGHT WITHIN IN REACH, SIDE RAILS UP X2. I WILL ENDORSE TO INCOMING SHIFT FOR CONTINUITY OF CARE.
[2019-11-26 06:28] LABS: BASOPHILS % (AUTO) 0.3 % (0.0-2.0); HEMATOCRIT 33 % (33-45); HEMOGLOBIN 10.8 g/dL (11.5-14.8); LYMPHOCYTES # (AUTO) 1.4 /CMM (0.8-4.8); MEAN CORPUSCULAR HGB CONC 33 g/dl (31.0-36.0); MEAN CORPUSCULAR VOLUME 97 fL (82-100); MONOCYTES # (AUTO) 0.4 /CMM (0.1-1.30); MONOCYTES % (AUTO) 6.4 % (2.0-12.0); NEUTROPHILS % (AUTO) 72.3 % (43.0-81.0); PLATELET COUNT (AUTO) 150 /CMM (150-450); RED BLOOD CELL COUNT(AUTO) 3.39 MIL/uL (4.0-5.2); WHITE BLOOD COUNT (AUTO) 6.9 K/uL (4.3-11.0)
[2019-11-26 06:36] LABS: CALCIUM, SERUM 8.7 mg/dL (8.5-10.1); CREATININE 0.7 mg/dL (0.6-1.3)
--- NOTE | 2019-11-26 06:50 | NUR ---
DR NEELIMA BILL IS AWARE OF CRITICAL LAB VALUE OF CO2 40 AND NO ORDER AT THIS TIME
[2019-11-26 08:00] VITALS: BP 161/80
--- NOTE | 2019-11-26 08:00 | NUR ---
MS RN NOTES PATIENT IN BED RESTING NO SOB OR ACUTE DISTRESS NOTED. PATIENT ALERT, ORIENTED X3. PERIPHERAL IV INTACT PATENT. BED IN LOW LOCKED POSITION. CALL LIGHT WITHIN REACH. PATIENT REQUESTING MORNING MEDICATIONS. BED IN LOW LOCKED POSITION, CALL LIGHT WITHIN REACH. WILL CONTINUE TO MONITOR.
[2019-11-26] MEDS: QUETIAPINE FUMARATE 25 MG TABLET PO SCH ×3 (08:05→16:57)
[2019-11-26] MEDS: SERTRALINE HCL 25 MG TABLET PO SCH (08:05)
[2019-11-26] MEDS: BENZTROPINE MESYLATE (1 MG) 1 MG TABLET PO SCH ×2 (08:05→16:57)
[2019-11-26] MEDS: PANTOPRAZOLE 40 MG TABLET.DR PO SCH (08:06)
[2019-11-26] MEDS: oxyCODONE/APAP (5/325 MG) 1 UDTAB TABLET PO SCH ×3 (08:08→16:58)
[2019-11-26] MEDS: LORAZEPAM 1 MG TABLET PO SCH ×3 (08:08→16:57)
[2019-11-26] MEDS: AMLODIPINE BESYLATE 5 MG TABLET PO SCH (08:52)
--- NOTE | 2019-11-26 09:07 | NUR ---
MS RN NOTES PER CHANGE NURSE AND DR. BILL PATIENT TO BE TRANSFERRED TO ROOM 325 TO NONE COVID FLOOR. PATIENT MADE AWARE.
--- NOTE | 2019-11-26 09:42 | NUR ---
RN NOTES TRANSEREED PATIENT TO ROOM 325-1 BEDSIDE REPORT GIVEN TO ROHIT JULIAN. PATIENT IN STABLE CONDITION.
--- NOTE | 2019-11-26 09:47 | NUR ---
RN NOTE Patient received from JOSE A. Received report from ELIEL Mccoy. Patient is A/O x3, showing no signs of acute distress or SOB, saturating 95% on 2L NC. BP 132/70 HR 85RR 17 T 98.3. Bed is in lowest position, side rails x3 in upright position, call light is within reach, fall safety and aspiration precautions enforced. Will continue with plan of care.
[2019-11-26 10:00] VITALS: BP 132/70
[2019-11-26] MEDS: ZITHROMAX 500 MG/250 ML D5W IV SCH ×2 (12:32)
[2019-11-26 16:04] VITALS: BP 141/73
[2019-11-26] MEDS: CEFTRIAXONE 1 G in IV D5W 50 ML IV SCH (17:54)
--- NOTE | 2019-11-26 19:54 | NUR ---
MS RN OPENING NOTES PATIENT RECEIVED RESTING IN BED A/O X 2-3. ON 2L OF O2 WITH BREATHING EVEN AND UNLABORED, NO SOB NOTED. NO SIGNS OF ACUTE DISTRESS. NO COMPLAINTS OF PAIN OR DISCOMFORT. IV LOCATED ON R HAND #22 RUNNING NS @ 75 ML/HR. SAFETY PRECAUTIONS IN PLACE WITH BED IN LOWEST POSITION, CALL LIGHT WITHIN REACH, BREAKS ON, SIDE RAILS UP. WILL CONTINUE TO MONITOR THROUGHOUT THE NIGHT.
--- NOTE | 2019-11-26 19:55 | NUR ---
RN CLOSING NOTE Patient is resting in bed, A/O x3, showing no signs of acute distress or SOB, saturating 95% on 2L NC. All patient needs met, all due medications given, patient kept clean and dry throughout shift. Bed is in lowest position, side rails x3 in upright position, call light is within reach, fall safety and aspiration precautions enforced. Will endorse to production supervisor off shift.
[2019-11-26 20:23] VITALS: BP 135/66
[2019-11-26] MEDS: MONTELUKAST SODIUM (10MG) 10 MG TABLET PO SCH (21:15)
[2019-11-26] MEDS: ATORVASTATIN 10 MG TABLET PO SCH (21:15)
[2019-11-26] MEDS: risperiDONE 0.25 MG TABLET PO SCH (21:47)
--- NOTE | 2019-11-26 21:51 | NUR ---
MS RN NOTES DID NOT ADMINISTER RISPERDAL 2MG. PATIENT LETHARGIC, BUT AROUSABLE. SPO2 >95% ON 2L VIA NC, RR AT 18.
[2019-11-27] MEDS: DIVALPROEX SODIUM 125 MG CAP.SPRINK PO SCH ×3 (04:56→21:28)
[2019-11-27] MEDS: IV NS 0.9% 1,000 ML IV PRN ×2 (05:46→20:50)
[2019-11-27 06:12] LABS: BASOPHILS % (AUTO) 0.5 % (0.0-2.0); EOSINOPHILS % (AUTO) 2.8 % (0.0-6.0); HEMATOCRIT 32 % (33-45); HEMOGLOBIN 10.7 g/dL (11.5-14.8); LYMPHOCYTES # (AUTO) 1.3 /CMM (0.8-4.8); LYMPHOCYTES % (AUTO) 27.1 % (20.0-44.0); MEAN CORPUSCULAR HGB CONC 34 g/dl (31.0-36.0); MEAN CORPUSCULAR VOLUME 97 fL (82-100); MONOCYTES # (AUTO) 0.4 /CMM (0.1-1.30); MONOCYTES % (AUTO) 8.9 % (2.0-12.0); NEUTROPHILS # (AUTO) 2.8 /CMM (1.8-8.9); NEUTROPHILS % (AUTO) 60.7 % (43.0-81.0); PLATELET COUNT (AUTO) 153 /CMM (150-450); RED BLOOD CELL COUNT(AUTO) 3.25 MIL/uL (4.0-5.2); WHITE BLOOD COUNT (AUTO) 4.7 K/uL (4.3-11.0)
[2019-11-27 06:25] LABS: CALCIUM, SERUM 8.4 mg/dL (8.5-10.1); CREATININE 0.7 mg/dL (0.6-1.3); POTASSIUM 4.3 mmol/L (3.5-5.1)
--- NOTE | 2019-11-27 06:36 | NUR ---
MS RN CLOSING NOTES PATIENT RESTING IN BED A/O X 2-3. ON 2L OF O2 WITH BREATHING EVEN AND UNLABORED, NO SOB NOTED. NO SIGNS OF ACUTE DISTRESS. NO COMPLAINTS OF PAIN OR DISCOMFORT. IV LOCATED ON R HAND #22 RUNNING NS @ 75 ML/HR. SAFETY PRECAUTIONS IN PLACE WITH BED IN LOWEST POSITION, CALL LIGHT WITHIN REACH, BREAKS ON, SIDE RAILS UP. WALL NEEDS ATTENDED TO, PATIENT WAS KEPT CLEAN AND DRY. WILL ENDORSE TO ONCOMING SHIFT ABOUT ALLISON.
--- NOTE | 2019-11-27 07:30 | NUR ---
MS/RN NOTE THE PATIENT IS RECEIVED IN BED. PATIENT IS ALERT AND ORIENTED X1. ABLE TO MAKE NEEDS KNOWN VERBALLY. RECEIVING OXYGEN AT 2L/MIN VIA NASAL CANNULA AND DENIES SOB. RESPIRATION REGULAR AND UNLABORED. DENIES PAIN. RIGHT HAND G 22 PATENT AND NS INFUSING AT 75ML/HR. NO S/S INFILTRATION NOTED. BED LOW AND LOCKED. SIDE RAILS UP X3. CALL LIGHT WITHIN REACH. WILL CONTINUE TO MONITOR.
[2019-11-27] MEDS: LORAZEPAM 1 MG TABLET PO SCH (08:55)
[2019-11-27] MEDS: BENZTROPINE MESYLATE (1 MG) 1 MG TABLET PO SCH ×2 (08:56→16:41)
[2019-11-27] MEDS: AMLODIPINE BESYLATE 5 MG TABLET PO SCH (08:56)
[2019-11-27] MEDS: SERTRALINE HCL 25 MG TABLET PO SCH (08:56)
[2019-11-27] MEDS: QUETIAPINE FUMARATE 25 MG TABLET PO SCH ×3 (08:56→16:42)
[2019-11-27] MEDS: PANTOPRAZOLE 40 MG TABLET.DR PO SCH (08:56)
[2019-11-27] MEDS: oxyCODONE/APAP (5/325 MG) 1 UDTAB TABLET PO SCH ×3 (08:56→16:41)
[2019-11-27] MEDS: AZITHROMYCIN 250 MG TABLET PO SCH (08:57)
[2019-11-27] MEDS: ALBUTEROL SULFATE 8 GM HFA.AER.AD IH PRN (09:03)
--- NOTE | 2019-11-27 09:03 | NUR ---
MS/RN NOTE THE PATIENT COMPLIANED OF SHORTNESS OF BREATH. VENTOLIN HFA IS ADMINISTERED ORDERED. WILL CONTINUE TO MONITOR.
[2019-11-27 09:05] VITALS: BP 139/78
[2019-11-27] MEDS ORDERED: FUROSEMIDE 20 MG/2 ML VIAL IV ONE (09:41)
--- NOTE | 2019-11-27 09:46 | NUR ---
MS/RN NOTE THE PATIENT VERBALIZED IMPROVEMENT IN BREATHING AND RELIEVE FROM SHORTNESS OF BREATH. PATIENT`S RESPIRATION IS REGULAR AND UNLABORED. OXYGEN SATURATION IS AT 95% WITH OXYGEN DELIVERING AT 2L/MIN VIA NASAL CANNULA.
[2019-11-27] MEDS: BUDESONIDE RESPULE INH 0.25 MG/2 ML AMPUL.NEB NEB SCH ×2 (11:50→21:17)
[2019-11-27] MEDS: ACETYLCYSTEINE 10% SOLN 400 MG/4 ML VIAL NEB SCH ×3 (11:50→23:30)
[2019-11-27] MEDS: ALBUTEROL HALF STRENGTH 1.25 MG/3 ML VIAL.NEB NEB SCH ×4 (11:57→23:30)
[2019-11-27] MEDS: IPRATROPIUM NEB FS 0.5 MG/2.5 ML AMPUL.NEB NEB SCH ×4 (11:57→23:30)
--- NOTE | 2019-11-27 13:00 | NUR ---
MS/RN NOTE PERCOCET DUE AT 1300 IS NOT ADMINISTERED DUE TO PATIENT NOTED TO BE DROWSY AND SLEEPY.
[2019-11-27 16:57] VITALS: BP 98/49
[2019-11-27] MEDS: CEFTRIAXONE 1 G in IV D5W 50 ML IV SCH (18:48)
--- NOTE | 2019-11-27 18:50 | NUR ---
MS/RN CLOSING NOTES PATIENT RESTING IN BED A/O X 2. PATIENT ON 2L OF OXYGEN VIA NC, BREATHING EVEN AND UNLABORED, NO SOB NOTED. NO SIGNS OF ACUTE DISTRESS. NO COMPLAINTS OF PAIN OR DISCOMFORT AT THIS TIME. IV LOCATED ON RIGHT HAND #22 INTACT, RUNNING NS @ 75 ML/HR. SAFETY PRECAUTIONS IN PLACE WITH BED IN LOWEST POSITION AND LOCKED, CALL LIGHT WITHIN REACH, SIDE RAILS UP X 3. WILL ENDORSE CARE TO ONCOMING SHIFT.
[2019-11-27 20:00] VITALS: BP 97/55
[2019-11-27] MEDS: LORAZEPAM 1 MG TABLET PO PRN (20:34)
--- NOTE | 2019-11-27 20:39 | NUR ---
MS RN NOTES ATIVAN PRN ADMINISTERED, PATIENT PER REQUEST. PATIENT FEELING EXTREMELY ANXIOUS, CRYING.
[2019-11-27] MEDS: MONTELUKAST SODIUM (10MG) 10 MG TABLET PO SCH (21:28)
[2019-11-27] MEDS: ATORVASTATIN 10 MG TABLET PO SCH (21:28)
[2019-11-27] MEDS: risperiDONE 0.25 MG TABLET PO SCH (21:28)
[2019-11-28] MEDS: IPRATROPIUM NEB FS 0.5 MG/2.5 ML AMPUL.NEB NEB SCH ×6 (03:30→23:30)
[2019-11-28] MEDS: ALBUTEROL HALF STRENGTH 1.25 MG/3 ML VIAL.NEB NEB SCH ×6 (03:30→23:30)
[2019-11-28] MEDS: DIVALPROEX SODIUM 125 MG CAP.SPRINK PO SCH ×3 (05:28→22:27)
--- NOTE | 2019-11-28 06:45 | NUR ---
MS RN CLOSING NOTES PATIENT RESTING IN BED A/O X 2-3. ON 2L OF O2 WITH BREATHING EVEN AND UNLABORED, NO SOB NOTED. NO SIGNS OF ACUTE DISTRESS. NO COMPLAINTS OF PAIN OR DISCOMFORT. IV LOCATED ON R HAND #22 RUNNING NS @ 75 ML/HR. SAFETY PRECAUTIONS IN PLACE WITH BED IN LOWEST POSITION, CALL LIGHT WITHIN REACH, BREAKS ON, SIDE RAILS UP. ALL NEEDS ATTENDED TO, PATIENT WAS KEPT CLEAN AND DRY. WILL ENDORSE TO ONCOMING SHIFT ABOUT ALLISON.
[2019-11-28 06:59] LABS: BASOPHILS % (AUTO) 0.6 % (0.0-2.0); EOSINOPHILS % (AUTO) 3.2 % (0.0-6.0); HEMATOCRIT 33 % (33-45); LYMPHOCYTES # (AUTO) 1.3 /CMM (0.8-4.8); LYMPHOCYTES % (AUTO) 25.7 % (20.0-44.0); MEAN CORPUSCULAR HGB CONC 33 g/dl (31.0-36.0); MEAN CORPUSCULAR VOLUME 97 fL (82-100); MONOCYTES # (AUTO) 0.4 /CMM (0.1-1.30); MONOCYTES % (AUTO) 8.1 % (2.0-12.0); NEUTROPHILS # (AUTO) 3.1 /CMM (1.8-8.9); NEUTROPHILS % (AUTO) 62.4 % (43.0-81.0); PLATELET COUNT (AUTO) 170 /CMM (150-450); RED BLOOD CELL COUNT(AUTO) 3.42 MIL/uL (4.0-5.2)
[2019-11-28 07:19] LABS: CALCIUM, SERUM 8.8 mg/dL (8.5-10.1); CREATININE 0.7 mg/dL (0.6-1.3); MAGNESIUM 1.7 mg/dL (1.8-2.4); POTASSIUM 4.5 mmol/L (3.5-5.1)
[2019-11-28] MEDS: BUDESONIDE RESPULE INH 0.25 MG/2 ML AMPUL.NEB NEB SCH ×2 (07:34→19:30)
[2019-11-28] MEDS: ACETYLCYSTEINE 10% SOLN 400 MG/4 ML VIAL NEB SCH ×3 (07:34→23:30)
--- NOTE | 2019-11-28 07:44 | NUR ---
MS/RN OPENING NOTES Patient resting in bed, A&O X 2. Patient reports no pain/discomfort at this time. On 2L oxygen via NC, No SOB noted. Breathing even and non-labored. No respiratory and cardiac distress noted. IV access on right wrist #22 infusing NS @ 75 mL/hr. Fall precautions maintained. Will continue current medical management.
[2019-11-28] MEDS: IV NS 0.9% 1,000 ML IV PRN (07:54)
[2019-11-28 08:00] VITALS: BP 119/55
[2019-11-28] MEDS: BENZTROPINE MESYLATE (1 MG) 1 MG TABLET PO SCH ×2 (08:11→16:27)
[2019-11-28] MEDS: PANTOPRAZOLE 40 MG TABLET.DR PO SCH (08:11)
[2019-11-28] MEDS: QUETIAPINE FUMARATE 25 MG TABLET PO SCH ×3 (08:12→16:26)
[2019-11-28] MEDS: AZITHROMYCIN 250 MG TABLET PO SCH (08:12)
[2019-11-28] MEDS: AMLODIPINE BESYLATE 5 MG TABLET PO SCH (08:14)
[2019-11-28] MEDS: oxyCODONE/APAP (5/325 MG) 1 UDTAB TABLET PO SCH ×3 (08:18→16:27)
[2019-11-28] MEDS: SERTRALINE HCL 25 MG TABLET PO SCH (08:19)
[2019-11-28] MEDS: LORAZEPAM 1 MG TABLET PO PRN ×2 (09:19→14:40)
[2019-11-28] MEDS: Magnesium 1GM/D5W 100ML PREMIX 100 ML IV SCH ×2 (11:29→12:33)
[2019-11-28] MEDS ORDERED: Magnesium 1GM/D5W 100ML PREMIX 100 ML IV SCH (12:30)
[2019-11-28 15:05] LABS: ABG OXYGEN SATURATION 89.8 % (92.0-98.5); ABG PCO2 56.6 mmHg (35.0-45.0); ABG PH 7.412 (7.350-7.450); ABG PO2 58.7 mmHg (75.0-100.0); COHb 0.5 % (0.5-1.5); MetHb 0.4 % (0.0-1.5); SITE, ABG Left Brachial; VENT MODE, BG 1.5 l nc
[2019-11-28 16:00] VITALS: BP 100/60
[2019-11-28] MEDS: CEFTRIAXONE 1 G in IV D5W 50 ML IV SCH (17:24)
--- NOTE | 2019-11-28 18:45 | NUR ---
MS/RN CLOSING NOTES Patient resting in bed, A&O x 2. Breathing non-labored and even, no SOB noted on 2L oxygen via NC. No respiratory and cardiac distress noted. IV access noted on left wrist #22 infusing NS 75 mL/hr. No s/s of infection and infiltration noted. No complaints of pain/discomfort. Sensation from all peripheral extremities intact. Patient ambulates to commode, but reminded patient to call for assistance when getting up in bed. Patient verbalized understanding. Fall precautions maintained. Will endorse to stove installer nurse the current medical management.
--- NOTE | 2019-11-28 19:48 | NUR ---
RN NOTES RECEIVED PATIENT AWAKE ALERT ORIENTED X2, NO SIGNS OF ACUTE DISTRESS NOTED, REPOSITIONED FOR COMFORT. SAFETY MEASURES IN PLACE, ASPIRATION PRECAUTION EMPHASIZE, IV ACCESS INTACT AND PATENT INFUSING WELL, ALL NEEDS ANTICIPATED. WILL CONTINUE TO MONITOR ACCORDINGLY.
[2019-11-28 20:07] VITALS: BP 76/38
--- NOTE | 2019-11-28 20:34 | NUR ---
RN NOTES ATIVAN 1 MG TAB PO NOT GIVEN DUE TO LOW BLOOD PRESSURE 91 /48, HR 60. PATIENT IS ALERT ORIENTEDX3. SAFETY MEASURES IN PLACE, ASPIRATION PRECAUTION EMPHASIZE.WILL MONITOR.
[2019-11-28] MEDS: ATORVASTATIN 10 MG TABLET PO SCH (22:27)
[2019-11-28] MEDS: MONTELUKAST SODIUM (10MG) 10 MG TABLET PO SCH (22:27)
[2019-11-28] MEDS: risperiDONE 0.25 MG TABLET PO SCH (22:27)
[2019-11-29] MEDS: ALBUTEROL HALF STRENGTH 1.25 MG/3 ML VIAL.NEB NEB SCH ×4 (03:30→15:30)
[2019-11-29] MEDS: IPRATROPIUM NEB FS 0.5 MG/2.5 ML AMPUL.NEB NEB SCH ×4 (03:30→15:30)
[2019-11-29] MEDS: IV NS 0.9% 1,000 ML IV PRN (05:43)
[2019-11-29] MEDS: DIVALPROEX SODIUM 125 MG CAP.SPRINK PO SCH ×2 (06:55→12:32)
[2019-11-29] MEDS: ACETYLCYSTEINE 10% SOLN 400 MG/4 ML VIAL NEB SCH ×2 (07:24→15:30)
[2019-11-29] MEDS: BUDESONIDE RESPULE INH 0.25 MG/2 ML AMPUL.NEB NEB SCH (07:30)
--- NOTE | 2019-11-29 07:30 | NUR ---
MS/RN OPENING NOTES Patient resting in bed, A&O x 3. No sob noted, breathing even and non-labored. No complaints of pain/discomfort at this time. No cardiac distress noted. Sensation from all peripheral extremities intact. IV access noted on the left wrist, 22 gauge infusing NS @ 75 mL/hr. Bed is locked and set in the lowest position. Reminded patient to use call light for assistance and when getting out of bed. Will continue current medical management.
[2019-11-29] MEDS: AZITHROMYCIN 250 MG TABLET PO SCH (08:07)
[2019-11-29] MEDS: oxyCODONE/APAP (5/325 MG) 1 UDTAB TABLET PO SCH ×3 (08:07→16:42)
[2019-11-29] MEDS: BENZTROPINE MESYLATE (1 MG) 1 MG TABLET PO SCH ×2 (08:07→16:38)
[2019-11-29] MEDS: QUETIAPINE FUMARATE 25 MG TABLET PO SCH ×3 (08:07→16:39)
[2019-11-29] MEDS: PANTOPRAZOLE 40 MG TABLET.DR PO SCH (08:07)
[2019-11-29] MEDS: SERTRALINE HCL 25 MG TABLET PO SCH (08:07)
[2019-11-29] MEDS: AMLODIPINE BESYLATE 5 MG TABLET PO SCH (08:10)
[2019-11-29 08:44] VITALS: BP 112/58
[2019-11-29 09:44] LABS: ABG BASE EXCESS 13.5 mmol/L; ABG OXYGEN SATURATION 95.2 % (92.0-98.5); ABG PCO2 60.9 mmHg (35.0-45.0); ABG PH 7.436 (7.350-7.450); AaDO2 52.8 mmHg; COHb 0.5 % (0.5-1.5); MetHb 0.1 % (0.0-1.5); O2Hb 94.6 % (94.0-97.0); SITE, ABG Right Radial; VENT MODE, BG 2 LPM NASAL CANNULA
[2019-11-29] MEDS: LORAZEPAM 1 MG TABLET PO PRN (11:47)
[2019-11-29 12:50] LABS: CALCIUM, SERUM 9.1 mg/dL (8.5-10.1); CREATININE 0.8 mg/dL (0.6-1.3); MAGNESIUM 1.7 mg/dL (1.8-2.4); POTASSIUM 4.5 mmol/L (3.5-5.1)
[2019-11-29 16:49] VITALS: BP 98/56
--- NOTE | 2019-11-29 17:03 | NUR ---
MS/NUCLEAR SPECTROSCOPIST NOTES Patient picked up by ambulance at 1645, A&O x 3, no SOB noted, afebrile. Gave report to the ambulance staff. Latest vital signs taken BP 98/56, HR 67, T 98.7, RR 20, and saturating at 97% on 2L oxygen via NC. No complaints of pain and discomfort at this time. No respiratory or cardiac distress noted. IV access removed on the left wrist with catheter tip intact. Skin is intact, no wounds or skin impairment noted. Sensation from all peripheral extremities intact. Patient left with all belongings, discharge instructions, and other hospital documentation. Report given to Dang, petroleum inspector supervisor of [place]y [place] , relayed discharge instructions and responded to her questions accordingly. She verbalized understanding.
== END 2019-11-29 17:00 | DRG 871 ==
LOC: ER 12:48 → TELE1 14:35 → TELE-TD 20:42 → TELE1 11-24 06:52 → MED 11-26 10:11
PROVIDERS: ADMIT Legal Medicine; ATTEND Legal Medicine
DX: A41.9 Sepsis, unspecified organism (principal); J96.21 Acute and chronic respiratory failure with hypoxia; J96.22 Acute and chronic respiratory failure with hypercapnia; G93.40 Encephalopathy, unspecified; J44.1 Chronic obstructive pulmonary disease with (acute) exacerbation; I10 Essential (primary) hypertension; F29 Unspecified psychosis not due to a substance or known physiological condition; M79.7 Fibromyalgia; K21.9 Gastro-esophageal reflux disease without esophagitis; F41.9 Anxiety disorder, unspecified; L30.9 Dermatitis, unspecified; E87.5 Hyperkalemia; Z87.892 Personal history of anaphylaxis; Z88.5 Allergy status to narcotic agent; Z88.8 Allergy status to other drugs, medicaments and biological substances; Z79.899 Other long term (current) drug therapy; M19.90 Unspecified osteoarthritis, unspecified site; F31.9 Bipolar disorder, unspecified; Z99.81 Dependence on supplemental oxygen; F17.200 Nicotine dependence, unspecified, uncomplicated; J40 Bronchitis, not specified as acute or chronic; F20.9 Schizophrenia, unspecified
CPT/HCPCS: 36415; 36600; 71045-TC; 80048-TC; 80053-TC; 81000-TC; 82550-TC; 82728-TC; 82803-TC; 83605-TC; 83615-TC; 83735-TC; 83880; 84484-TC; 85025-TC; 86140-TC; 87040-TC; 87081-TC; 87086-TC; 93307-TC; 94799-TC; G0378; J0456; J0696; J1940; J2405; J2920; J3475; J7030; J7040; J7060; U0003-CS

== ENCOUNTER 2024-03-02 18:20 | Inpatient (IN) | payer MEDICARE, OTHER ==
[~2024-03-02] VITALS: Ht 162.6 cm; Wt 45.8 kg
[~2024-03-02 18:20] MED LIST changes: +AMLO5TAB4 PO; -BENZ2TAB7 PO; -BUDE10.2 INH; -Blood Sugar Diagnostic IN; -CHOL500052 PO; +DIVA125C5 PO; -DOCU-106 PO; -HYDR-4384 PO; +LORA-259 PO; -MAGN24002 PO; -MELO-105 PO; -OLAN10VI IM; +OXYC-128 PO; +PANT20TA2 PO; +POTA-10 PO; -POTA20TA83 PO; +QUET25TA PO; +RISP0.2515 PO; -RISP2TAB5 PO; +SERT25TA PO; -TIOT18CA3 IH
[2024-03-02] MEDS: IV NS 0.9% 1,000 ML BAG IV ONE (18:30)
[2024-03-02] MEDS: ETOMIDATE 2 MG/ML VIAL IV ONE (18:33)
[2024-03-02] MEDS: ROCURONIUM BROMIDE 50 MG/5 ML IV ONE (18:33)
[2024-03-02] MEDS ORDERED: FENTANYL PF 100MCG/2ML AMPUL ONE (18:41)
[2024-03-02] MEDS ORDERED: MIDAZOLAM HCL 2 MG/2ML VIAL ONE (18:42)
[2024-03-02 18:54] VITALS: O2SAT 97
[2024-03-02] MEDS: MIDAZOLAM HCL 2 MG/2ML VIAL IV ONE (19:00)
[2024-03-02] MEDS ORDERED: BUSP10TA3 PO (19:08)
[2024-03-02] MEDS ORDERED: QUET50TA PO (19:08)
[2024-03-02] MEDS ORDERED: NA P133E RC (19:08)
[2024-03-02] MEDS ORDERED: TETR25TA PO (19:08)
[2024-03-02] MEDS ORDERED: IPRA3AMP22 IH (19:08)
[2024-03-02] MEDS ORDERED: GABA-532 PO (19:08)
[2024-03-02] MEDS ORDERED: ASCO-352 PO (19:08)
[2024-03-02] MEDS ORDERED: ACET100V5 IH (19:08)
[2024-03-02] MEDS ORDERED: AMLO10TA4 PO (19:08)
[2024-03-02] MEDS ORDERED: PANT40TA2 PO ×2 (19:08)
[2024-03-02] MEDS ORDERED: ASPI-1169 PO (19:08)
[2024-03-02] MEDS ORDERED: TAMS-12 PO (19:08)
[2024-03-02] MEDS ORDERED: GUAI100S9 PO (19:08)
[2024-03-02] MEDS ORDERED: CELE100C PO (19:08)
[2024-03-02] MEDS ORDERED: MULT-647 PO (19:08)
[2024-03-02] MEDS ORDERED: SENN8.6T19 PO (19:08)
[2024-03-02] MEDS ORDERED: MAGN400O6 PO (19:08)
[2024-03-02] MEDS ORDERED: VALP250S4 PO (19:08)
[2024-03-02] MEDS ORDERED: TRAM50TA2 PO (19:08)
[2024-03-02] MEDS ORDERED: ACET-868 PO (19:08)
[2024-03-02] MEDS ORDERED: UMEC62.5 IH (19:08)
[2024-03-02] MEDS ORDERED: BISA10SU11 RC (19:08)
[2024-03-02] MEDS ORDERED: ROFL500T PO (19:08)
[2024-03-02] MEDS ORDERED: LORA-259 PO (19:08)
[2024-03-02] MEDS: LEVETIRACETAM (500MG) 1,000 MG in IV NS 0.9% 90 ML IV SCH (19:10)
[2024-03-02 19:14] LABS: BASOPHILS % (AUTO) 0.7 % (0.0-2.0); EOSINOPHILS % (AUTO) 0.3 % (0.0-6.0); HEMATOCRIT 35 % (33-45); HEMOGLOBIN 11.1 g/dL (11.5-14.8); LYMPHOCYTES # (AUTO) 0.5 K/uL (0.8-4.8); LYMPHOCYTES % (AUTO) 10.4 % (20.0-44.0); MEAN CORPUSCULAR HEMOGLOBIN 30 PG (26.0-33.0); MEAN CORPUSCULAR HGB CONC 32 g/dl (31.0-36.0); MEAN CORPUSCULAR VOLUME 92 fL (82-100); MONOCYTES # (AUTO) 0.2 K/uL (0.1-1.30); MONOCYTES % (AUTO) 3.8 % (2.0-12.0); NEUTROPHILS # (AUTO) 4.1 K/uL (1.8-8.9); NEUTROPHILS % (AUTO) 84.8 % (43.0-81.0); PLATELET COUNT (AUTO) 231 K/uL (150-450); RED BLOOD CELL COUNT(AUTO) 3.75 MIL/uL (4.0-5.2); RED CELL DISTRIBUTION WIDTH 18.2 % (11.5-15.0); WHITE BLOOD COUNT (AUTO) 4.9 K/uL (4.3-11.0)
[2024-03-02] MEDS: FENTANYL PF 100MCG/2ML AMPUL IV ONE (19:15)
[2024-03-02 19:29] LABS: ALANINE AMINOTRANSFERASE 12 U/L (12-78); ALBUMIN 2.9 g/dL (3.4-5.0); ALKALINE PHOSPHATASE 63 U/L (46-116); ASPARTATE AMINOTRANSFERASE 21 U/L (15-37); CARBON DIOXIDE 33 mmol/L (21-32); CHLORIDE 102 mmol/L (98-107); CREATININE 0.6 mg/dL (0.6-1.3); GLUCOSE 140 mg/dL (74-106); SODIUM SERUM 142 mmol/L (136-145); TOTAL PROTEIN, SERUM 6.3 g/dL (6.4-8.2); UREA NITROGEN, BLOOD 17 mg/dL (7-18)
[2024-03-02] MEDS: MIDAZOLAM HCL 100 MG in IV NS 0.9% 80 ML IV PRN ×2 (19:30→23:36)
[2024-03-02] MEDS: CEFEPIME 1 GM in IV D5W 50 ML IV ONE (19:40)
[2024-03-02] MEDS: FENTANYL CITRAT IV 2,500 MCG in IV NS 0.9% 200 ML IV PRN ×2 (19:40→23:07)
[2024-03-02 19:42] LABS: LACTIC ACID 4.5 mmol/L (0.4-2.0)
[2024-03-02 19:56] LABS: PARTIAL THROMBOPLASTIN TIME 22.2 SEC (24.3-34.3); PROTHROMBIN TIME 10.3 SECS (9.2-11.1)
[2024-03-02 20:12] LABS: BILIRUBIN,TOTAL 0.2 mg/dL (0.2-1.0); CALCIUM, SERUM 9.3 mg/dL (8.5-10.1)
[2024-03-02 20:49] LABS: ABG BASE EXCESS 6.1 mmol/L (-2.0-3.0); ABG OXYGEN SATURATION 99.4 % (94.0-98.0); ABG PCO2 38.9 mmHg (32.0-45.0); ABG PO2 303.7 mmHg (83.0-108.0); ABG TOTAL HEMOGLOBIN 11.5 G/dL (12.0-16.0); COHb 0.3 % (0.5-1.5); MetHb 0.2 % (0.0-1.5); O2Hb 98.9 % (94.0-97.0); PEEP,BG 0 cm H2O; SITE, ABG Left Brachial; VENT MODE, BG AC 18 450 60% +0; VT, ABG 450 mL
[2024-03-02] MEDS: VANCOMYCIN 1 GM in IV D5W 250 ML IV ONE (20:50)
[2024-03-02] MEDS ORDERED: Magnesium 1GM/D5W 100ML PREMIX 100 ML IV ONE (21:02)
[2024-03-02] MEDS ORDERED: POTASSIUM CL. PREMIX PERIPHER. 50 ML ONE (21:02)
[2024-03-02] MEDS: POTASSIUM CL. PREMIX PERIPHER. 50 ML IV SCH (21:05)
[2024-03-02] MEDS: Magnesium 1GM/D5W 100ML PREMIX 100 ML IV STA (21:24)
[2024-03-02] MEDS ORDERED: ALBUTEROL FS 2.5 MG/3 ML VIAL.NEB NEB PRN (22:00)
[2024-03-02] MEDS ORDERED: NOREPINEPHRINE 8 MG in IV D5W 242 ML IV PRN (22:00)
[2024-03-02] MEDS ORDERED: Z GUARD REMEDY 4 OZ OINT TP PRN (22:00)
[2024-03-02 22:32] LABS: APPEARANCE,URINE SLIGHTLY CLOUDY (CLEAR); BILIRUBIN,URINE NEGATIVE (NEGATIVE); BLOOD, URINE 2+ Ery/uL (NEGATIVE); COLOR,URINE YELLOW (YELLOW); KETONES,URINE 1+ mg/dL (NEGATIVE); LEUKOCYTE ESTERASE ,URINE NEGATIVE (NEGATIVE); NITRITE, URINE NEGATIVE (NEGATIVE); PROTEIN,URINE 3+ mg/dl (NEGATIVE); UGLUCOSE NEGATIVE (NEGATIVE); UROBILINOGEN,URINE 0.2 EU/dL (0.2)
[2024-03-02 22:45] VITALS: BP 135/72; TEMP 98.6; O2SAT 99
[2024-03-02 23:00] VITALS: BP 123/75; O2SAT 100
[2024-03-02] MEDS ORDERED: MIDAZOLAM HCL 100 MG in IV NS 0.9% 80 ML IV PRN (23:00)
[2024-03-02] MEDS: ENOXAPARIN SODIUM 40 MG/0.4 ML DISP.SYRIN SQ SCH (23:03)
[2024-03-02] MEDS: IV NS 0.9% 1,000 ML IV PRN (23:04)
[2024-03-02 23:08] LABS: BACTERIA,URINE Many /HPF (None Seen)
[2024-03-02 23:09] LABS: ADD URINE CULTURE YES; SQUAMOUS EPITHELIAL CELL,UR Rare /HPF (None Seen); WBC,URINE 0-2 /HPF (0-3); YEAST,URINE Few /HPF (None Seen)
[2024-03-02 23:15] VITALS: BP 106/74; O2SAT 99
[2024-03-02 23:30] VITALS: BP 100/70; O2SAT 100
[2024-03-02 23:45] VITALS: BP 86/62; O2SAT 100
[2024-03-03] VITALS (96 sets, daily range): BP systolic 79–166; BP diastolic 46–97; TEMP 98–98.8; O2SAT 97–100
[2024-03-03 05:24] LABS: BASOPHILS % (AUTO) 0.6 % (0.0-2.0); EOSINOPHILS % (AUTO) 0.7 % (0.0-6.0); HEMATOCRIT 29 % (33-45); HEMOGLOBIN 9.3 g/dL (11.5-14.8); LYMPHOCYTES # (AUTO) 1.6 K/uL (0.8-4.8); LYMPHOCYTES % (AUTO) 25.8 % (20.0-44.0); MEAN CORPUSCULAR HEMOGLOBIN 29 PG (26.0-33.0); MEAN CORPUSCULAR HGB CONC 32 g/dl (31.0-36.0); MEAN CORPUSCULAR VOLUME 91 fL (82-100); MONOCYTES # (AUTO) 0.6 K/uL (0.1-1.30); MONOCYTES % (AUTO) 9.7 % (2.0-12.0); NEUTROPHILS # (AUTO) 3.9 K/uL (1.8-8.9); NEUTROPHILS % (AUTO) 63.2 % (43.0-81.0); PLATELET COUNT (AUTO) 178 K/uL (150-450); RED CELL DISTRIBUTION WIDTH 18.7 % (11.5-15.0); WHITE BLOOD COUNT (AUTO) 6.2 K/uL (4.3-11.0)
[2024-03-03 05:52] LABS: ALANINE AMINOTRANSFERASE 10 U/L (12-78); ALBUMIN 2.5 g/dL (3.4-5.0); ALKALINE PHOSPHATASE 61 U/L (46-116); ASPARTATE AMINOTRANSFERASE 17 U/L (15-37); BILIRUBIN,DIRECT 0.1 mg/dL (0.0-0.2); BILIRUBIN,TOTAL 0.4 mg/dL (0.2-1.0); CALCIUM, SERUM 8.4 mg/dL (8.5-10.1); CARBON DIOXIDE 35 mmol/L (21-32); CHLORIDE 106 mmol/L (98-107); CREATININE 0.6 mg/dL (0.6-1.3); GLUCOSE 70 mg/dL (74-106); PHOSPHORUS 1.6 mg/dL (2.5-4.9); SODIUM SERUM 145 mmol/L (136-145); TOTAL PROTEIN, SERUM 5.6 g/dL (6.4-8.2); UREA NITROGEN, BLOOD 17 mg/dL (7-18)
[2024-03-03] MEDS: NOREPINEPHRINE 8MG/250ML RTU 250 ML IV ONE (05:53)
[2024-03-03] MEDS: NOREPINEPHRINE 8 MG in IV D5W 242 ML IV PRN (05:58)
[2024-03-03] MEDS: LORAZEPAM INJ 2 MG/ML VIAL IV PRN (06:39)
[2024-03-03] MEDS ORDERED: LEVETIRACETAM (500MG) 500 MG in IV NS 0.9% 100 ML IV SCH ×2 (07:00→09:00)
[2024-03-03 07:26] LABS: LACTIC ACID 1.6 mmol/L (0.4-2.0)
[2024-03-03] MEDS: PANTOPRAZOLE 40 MG VIAL IV SCH (09:47)
[2024-03-03] MEDS: LEVETIRACETAM (500MG) 1,000 MG in IV NS 0.9% 90 ML IV SCH (09:47)
[2024-03-03] MEDS ORDERED: POTASSIUM CL. PREMIX PERIPHER. 50 ML IV SCH (10:00)
[2024-03-03] MEDS ORDERED: POTASSIUM PHOSPHATE MM 7.5 MMOL in IV NS 0.9% 100 ML IV SCH (10:00)
[2024-03-03] MEDS: POTASSIUM PHOSPHATE MM 7.5 MMOL in IV NS 0.9% 100 ML IV SCH (11:57)
[2024-03-03] MEDS: BLOOD SUGAR DIAGNOSTIC 1 EACH STRIP IN SCH (12:40)
[2024-03-03] MEDS: PROPOFOL 100 ML IV PRN (16:21)
[2024-03-03] MEDS ORDERED: ETOMIDATE 2 MG/ML VIAL IV ONE (17:14)
[2024-03-03] MEDS ORDERED: Sodium Phosphate 15 MMOL in IV NS 0.9% 245 ML IV SCH (18:00)
[2024-03-04] VITALS (72 sets, daily range): BP systolic 111–173; BP diastolic 54–95; TEMP 98.5–99; O2SAT 98–100
[2024-03-04 04:52] LABS: BASOPHILS % (AUTO) 0.4 % (0.0-2.0); EOSINOPHILS # (AUTO) 0.2 K/uL (0.0-0.7); EOSINOPHILS % (AUTO) 2.8 % (0.0-6.0); HEMATOCRIT 31 % (33-45); HEMOGLOBIN 9.8 g/dL (11.5-14.8); LYMPHOCYTES # (AUTO) 1.4 K/uL (0.8-4.8); LYMPHOCYTES % (AUTO) 15.3 % (20.0-44.0); MEAN CORPUSCULAR HEMOGLOBIN 29 PG (26.0-33.0); MEAN CORPUSCULAR HGB CONC 32 g/dl (31.0-36.0); MEAN CORPUSCULAR VOLUME 92 fL (82-100); MONOCYTES # (AUTO) 0.7 K/uL (0.1-1.30); MONOCYTES % (AUTO) 7.3 % (2.0-12.0); NEUTROPHILS # (AUTO) 6.6 K/uL (1.8-8.9); NEUTROPHILS % (AUTO) 74.2 % (43.0-81.0); PLATELET COUNT (AUTO) 212 K/uL (150-450); RED BLOOD CELL COUNT(AUTO) 3.32 MIL/uL (4.0-5.2); RED CELL DISTRIBUTION WIDTH 18.5 % (11.5-15.0); WHITE BLOOD COUNT (AUTO) 8.9 K/uL (4.3-11.0)
[2024-03-04 05:02] LABS: CALCIUM, SERUM 8.5 mg/dL (8.5-10.1); CARBON DIOXIDE 26 mmol/L (21-32); CHLORIDE 108 mmol/L (98-107); CREATININE 0.5 mg/dL (0.6-1.3); GLUCOSE 71 mg/dL (74-106); POTASSIUM 3.1 mmol/L (3.5-5.1); SODIUM SERUM 147 mmol/L (136-145); UREA NITROGEN, BLOOD 14 mg/dL (7-18)
[2024-03-04] MEDS: POTASSIUM CL. PREMIX PERIPHER. 50 ML IV SCH (08:20)
[2024-03-04 10:11] LABS: FOLIC ACID > 20.0 ng/mL (>3.0)
[2024-03-04] MEDS: DEXTROSE 50%-WATER 50 ML DISP.SYRIN IV PRN (11:28)
[2024-03-04] MEDS: JEVITY 1.2 CAL 1,000 ML BOTTLE GT PRN (18:05)
[2024-03-05] VITALS (61 sets, daily range): BP systolic 115–183; BP diastolic 54–92; TEMP 98.2–99; O2SAT 95–100
[2024-03-05] MEDS: LEVETIRACETAM SOL (5 ML) 100 MG/ML UDC GT SCH (09:05)
[2024-03-05 10:43] LABS: BASOPHILS # (AUTO) 0.1 K/uL (0.0-0.2); BASOPHILS % (AUTO) 0.5 % (0.0-2.0); EOSINOPHILS # (AUTO) 0.5 K/uL (0.0-0.7); EOSINOPHILS % (AUTO) 4.8 % (0.0-6.0); HEMATOCRIT 29 % (33-45); HEMOGLOBIN 9.4 g/dL (11.5-14.8); LYMPHOCYTES # (AUTO) 1.3 K/uL (0.8-4.8); LYMPHOCYTES % (AUTO) 12.8 % (20.0-44.0); MEAN CORPUSCULAR HEMOGLOBIN 29 PG (26.0-33.0); MEAN CORPUSCULAR HGB CONC 32 g/dl (31.0-36.0); MEAN CORPUSCULAR VOLUME 92 fL (82-100); MONOCYTES # (AUTO) 0.7 K/uL (0.1-1.30); MONOCYTES % (AUTO) 7.2 % (2.0-12.0); NEUTROPHILS # (AUTO) 7.7 K/uL (1.8-8.9); NEUTROPHILS % (AUTO) 74.7 % (43.0-81.0); PLATELET COUNT (AUTO) 183 K/uL (150-450); RED BLOOD CELL COUNT(AUTO) 3.21 MIL/uL (4.0-5.2); RED CELL DISTRIBUTION WIDTH 18.3 % (11.5-15.0); WHITE BLOOD COUNT (AUTO) 10.4 K/uL (4.3-11.0)
[2024-03-05 10:59] LABS: CALCIUM, SERUM 8.8 mg/dL (8.5-10.1); CARBON DIOXIDE 30 mmol/L (21-32); CHLORIDE 108 mmol/L (98-107); CREATININE 0.4 mg/dL (0.6-1.3); GLUCOSE 101 mg/dL (74-106); SODIUM SERUM 143 mmol/L (136-145); UREA NITROGEN, BLOOD 5 mg/dL (7-18)
[2024-03-05 11:12] LABS: EOSINOPHILS % (MANUAL) 4 % (0-4); LYMPHOCYTES % (MANUAL) 13 % (16-48); MONOCYTES % (MANUAL) 8 % (0-11.0); NEUTROPHILS % (MANUAL) 75 (42-76); PLATELET ESTIMATE ADEQUATE
[2024-03-05 11:13] LABS: ANISOCYTOSIS 1+; SMUDGE CELLS FEW
[2024-03-05] MEDS: POTASSIUM CHLORIDE 20 MEQ POWDER PACKET GT ONE (14:56)
[2024-03-06] VITALS (69 sets, daily range): BP systolic 129–187; BP diastolic 52–101; TEMP 98.1–98.5; O2SAT 95–100
[2024-03-06 04:42] LABS: BASOPHILS % (AUTO) 0.7 % (0.0-2.0); EOSINOPHILS # (AUTO) 0.4 K/uL (0.0-0.7); EOSINOPHILS % (AUTO) 5.9 % (0.0-6.0); HEMATOCRIT 26 % (33-45); HEMOGLOBIN 8.6 g/dL (11.5-14.8); LYMPHOCYTES # (AUTO) 1.5 K/uL (0.8-4.8); LYMPHOCYTES % (AUTO) 22.1 % (20.0-44.0); MEAN CORPUSCULAR HEMOGLOBIN 30 PG (26.0-33.0); MEAN CORPUSCULAR HGB CONC 33 g/dl (31.0-36.0); MEAN CORPUSCULAR VOLUME 91 fL (82-100); MONOCYTES # (AUTO) 0.5 K/uL (0.1-1.30); MONOCYTES % (AUTO) 7.8 % (2.0-12.0); NEUTROPHILS # (AUTO) 4.2 K/uL (1.8-8.9); NEUTROPHILS % (AUTO) 63.5 % (43.0-81.0); PLATELET COUNT (AUTO) 208 K/uL (150-450); RED CELL DISTRIBUTION WIDTH 18.6 % (11.5-15.0); WHITE BLOOD COUNT (AUTO) 6.6 K/uL (4.3-11.0)
[2024-03-06 04:52] LABS: CALCIUM, SERUM 8.4 mg/dL (8.5-10.1); CARBON DIOXIDE 30 mmol/L (21-32); CHLORIDE 110 mmol/L (98-107); CREATININE 0.4 mg/dL (0.6-1.3); GLUCOSE 99 mg/dL (74-106); POTASSIUM 3.3 mmol/L (3.5-5.1); SODIUM SERUM 144 mmol/L (136-145); UREA NITROGEN, BLOOD 6 mg/dL (7-18)
[2024-03-06] MEDS: POTASSIUM CL. PREMIX PERIPHER. 50 ML IV SCH (07:31)
[2024-03-06] MEDS ORDERED: DC PROPOFOL WHEN EXTUBATED XX PRN ×2 (08:00→09:15)
[2024-03-06] MEDS: PANTOPRAZOLE 40 MG/PACK PACK GT SCH (08:03)
[2024-03-06] MEDS: methylPREDNISolone SOD SUCC 125 MG/2ML VIAL IV SCH (10:00)
[2024-03-06] MEDS: IPRATROPIUM NEB FS 0.5 MG/2.5 ML AMPUL.NEB NEB SCH (10:07)
[2024-03-06] MEDS: TRAMADOL HCL 50 MG TABLET PO PRN (10:19)
[2024-03-06] MEDS: TRAMADOL HCL 50 MG TABLET GT PRN (17:05)
[2024-03-06] MEDS: hydrALAZINE HCL IV 20 MG VIAL IV PRN (20:46)
[2024-03-06] MEDS: hydrALAZINE HCL IV 20 MG VIAL IV ONE (23:35)
[2024-03-07] VITALS (29 sets, daily range): BP systolic 107–172; BP diastolic 56–124; TEMP 97.9–98.5; O2SAT 89–100
[2024-03-07] MEDS: LABETALOL 20 MG/4 ML VIAL IV ONE ×2 (01:55→20:59)
[2024-03-07 05:15] LABS: BASOPHILS % (AUTO) 0.3 % (0.0-2.0); EOSINOPHILS # (AUTO) 0.4 K/uL (0.0-0.7); EOSINOPHILS % (AUTO) 3.9 % (0.0-6.0); HEMATOCRIT 35 % (33-45); HEMOGLOBIN 11.1 g/dL (11.5-14.8); LYMPHOCYTES # (AUTO) 1.1 K/uL (0.8-4.8); LYMPHOCYTES % (AUTO) 11.6 % (20.0-44.0); MEAN CORPUSCULAR HEMOGLOBIN 29 PG (26.0-33.0); MEAN CORPUSCULAR HGB CONC 32 g/dl (31.0-36.0); MEAN CORPUSCULAR VOLUME 90 fL (82-100); MONOCYTES # (AUTO) 0.7 K/uL (0.1-1.30); MONOCYTES % (AUTO) 7.4 % (2.0-12.0); NEUTROPHILS # (AUTO) 7.4 K/uL (1.8-8.9); NEUTROPHILS % (AUTO) 76.8 % (43.0-81.0); PLATELET COUNT (AUTO) 339 K/uL (150-450); RED BLOOD CELL COUNT(AUTO) 3.87 MIL/uL (4.0-5.2); WHITE BLOOD COUNT (AUTO) 9.6 K/uL (4.3-11.0)
[2024-03-07 05:29] LABS: CARBON DIOXIDE 31 mmol/L (21-32); CHLORIDE 104 mmol/L (98-107); CREATININE 0.4 mg/dL (0.6-1.3); GLUCOSE 146 mg/dL (74-106); POTASSIUM 3.6 mmol/L (3.5-5.1); SODIUM SERUM 142 mmol/L (136-145); UREA NITROGEN, BLOOD 5 mg/dL (7-18)
[2024-03-07] MEDS: AMLODIPINE BESYLATE 10 MG TABLET PO SCH (16:20)
[2024-03-07] MEDS: hydrALAZINE HCL IV 20 MG VIAL IV PRN (19:48)
[2024-03-07 20:10] LABS: VITAMIN B1 THIAMINE,WB 117.9 nmol/L (66.5-200.0)
[2024-03-08] VITALS (30 sets, daily range): BP systolic 103–153; BP diastolic 51–90; TEMP 97.9–98.9; O2SAT 0–100
[2024-03-08 08:34] LABS: ABG BASE EXCESS 11.4 mmol/L (-2.0-3.0); ABG OXYGEN SATURATION 95.4 % (94.0-98.0); ABG PCO2 55.2 mmHg (32.0-45.0); ABG PH 7.449 (7.350-7.450); ABG PO2 80.5 mmHg (83.0-108.0); ABG TOTAL HEMOGLOBIN 12.5 G/dL (12.0-16.0); COHb 0.4 % (0.5-1.5); MetHb 0.1 % (0.0-1.5); O2Hb 94.9 % (94.0-97.0); SITE, ABG Right Brachial; VENT MODE, BG nasal cannula
[2024-03-08 10:08] LABS: METHYLMALONIC ACID 172 nmol/L (0-378)
[2024-03-08] MEDS: LEVETIRACETAM SOL (5 ML) 100 MG/ML UDC GT SCH (20:32)
[2024-03-08] MEDS: ONDANSETRON HCL/PF 4 MG/2 ML VIAL IVP PRN (20:53)
[2024-03-08] MEDS ORDERED: ACETAMINOPHEN 650 MG/20 ML UDC- SA PATIENTS-FEVER ONLY GT PRN (23:00)
[2024-03-08] MEDS ORDERED: ACETAMINOPHEN 650 MG/20.3 ML UDC PO PRN (23:45)
[2024-03-08] MEDS: ACETAMINOPHEN 650 MG/20.3 ML UDC GT PRN (23:53)
[2024-03-09] VITALS (23 sets, daily range): BP systolic 89–143; BP diastolic 56–92; TEMP 98.3–98.7; O2SAT 90–99
[2024-03-09 04:31] LABS: BASOPHILS % (AUTO) 0.1 % (0.0-2.0); HEMATOCRIT 30 % (33-45); HEMOGLOBIN 9.5 g/dL (11.5-14.8); LYMPHOCYTES # (AUTO) 0.8 K/uL (0.8-4.8); LYMPHOCYTES % (AUTO) 4.3 % (20.0-44.0); MEAN CORPUSCULAR HEMOGLOBIN 29 PG (26.0-33.0); MEAN CORPUSCULAR HGB CONC 32 g/dl (31.0-36.0); MEAN CORPUSCULAR VOLUME 90 fL (82-100); MONOCYTES # (AUTO) 0.8 K/uL (0.1-1.30); MONOCYTES % (AUTO) 4.3 % (2.0-12.0); NEUTROPHILS # (AUTO) 16.4 K/uL (1.8-8.9); NEUTROPHILS % (AUTO) 91.3 % (43.0-81.0); PLATELET COUNT (AUTO) 311 K/uL (150-450); RED BLOOD CELL COUNT(AUTO) 3.33 MIL/uL (4.0-5.2); RED CELL DISTRIBUTION WIDTH 17.5 % (11.5-15.0)
[2024-03-09 04:49] LABS: CARBON DIOXIDE 34 mmol/L (21-32); CHLORIDE 99 mmol/L (98-107); CREATININE 0.7 mg/dL (0.6-1.3); GLUCOSE 180 mg/dL (74-106); MAGNESIUM 1.3 mg/dL (1.8-2.4); PHOSPHORUS 3.7 mg/dL (2.5-4.9); POTASSIUM 3.8 mmol/L (3.5-5.1); SODIUM SERUM 139 mmol/L (136-145); UREA NITROGEN, BLOOD 18 mg/dL (7-18)
[2024-03-09] MEDS: JEVITY 1.2 CAL 1,000 ML BOTTLE GT PRN (06:42)
[2024-03-09] MEDS: MAGNESIUM OXIDE 400 MG TABLET PO SCH (10:44)
[2024-03-10] VITALS (11 sets, daily range): BP systolic 130–159; BP diastolic 62–90; TEMP 97.8–98.6; O2SAT 90–100
[2024-03-10 11:58] LABS: BASOPHILS % (AUTO) 0.1 % (0.0-2.0); HEMATOCRIT 34 % (33-45); HEMOGLOBIN 10.9 g/dL (11.5-14.8); LYMPHOCYTES # (AUTO) 0.4 K/uL (0.8-4.8); LYMPHOCYTES % (AUTO) 2.3 % (20.0-44.0); MEAN CORPUSCULAR HEMOGLOBIN 29 PG (26.0-33.0); MEAN CORPUSCULAR HGB CONC 32 g/dl (31.0-36.0); MEAN CORPUSCULAR VOLUME 89 fL (82-100); MONOCYTES # (AUTO) 0.1 K/uL (0.1-1.30); MONOCYTES % (AUTO) 0.8 % (2.0-12.0); NEUTROPHILS # (AUTO) 16.2 K/uL (1.8-8.9); NEUTROPHILS % (AUTO) 96.8 % (43.0-81.0); PLATELET COUNT (AUTO) 372 K/uL (150-450); RED BLOOD CELL COUNT(AUTO) 3.81 MIL/uL (4.0-5.2); RED CELL DISTRIBUTION WIDTH 16.9 % (11.5-15.0); WHITE BLOOD COUNT (AUTO) 16.8 K/uL (4.3-11.0)
[2024-03-10 12:19] LABS: ALANINE AMINOTRANSFERASE 9 U/L (12-78); ALBUMIN 2.7 g/dL (3.4-5.0); ALKALINE PHOSPHATASE 95 U/L (46-116); ASPARTATE AMINOTRANSFERASE 12 U/L (15-37); BILIRUBIN,TOTAL 0.3 mg/dL (0.2-1.0); CALCIUM, SERUM 9.4 mg/dL (8.5-10.1); CARBON DIOXIDE 37 mmol/L (21-32); CHLORIDE 92 mmol/L (98-107); CREATININE 0.5 mg/dL (0.6-1.3); GLUCOSE 241 mg/dL (74-106); POTASSIUM 4.6 mmol/L (3.5-5.1); SODIUM SERUM 132 mmol/L (136-145); TOTAL PROTEIN, SERUM 7.6 g/dL (6.4-8.2); UREA NITROGEN, BLOOD 16 mg/dL (7-18)
[2024-03-10] MEDS: CEFEPIME 2 GM in IV D5W 100 ML IV SCH (21:03)
[2024-03-11] VITALS (12 sets, daily range): BP systolic 127–160; BP diastolic 61–102; TEMP 97.6–98.5; O2SAT 90–97
[2024-03-11] MEDS: INSULIN REGULAR, HUMAN 100 UNIT/ML 3 ML VIAL SQ PRN (00:58)
[2024-03-11] MEDS: AMLODIPINE BESYLATE 10 MG TABLET GT SCH (08:29)
[2024-03-11] MEDS: NITROFURANTOIN/MONOHYDRATE MACROCRYSTALS 100 MG CAPSULE PO SCH (13:21)
[2024-03-12] VITALS (14 sets, daily range): BP systolic 138–164; BP diastolic 64–98; TEMP 97.9–98.3; O2SAT 94–98
[2024-03-12] MEDS: NITROFURANTOIN/MONOHYDRATE MACROCRYSTALS 100 MG CAPSULE GT SCH (09:02)
[2024-03-13] VITALS (33 sets, daily range): BP systolic 109–166; BP diastolic 63–110; TEMP 98.2–99.9; O2SAT 72–100
[2024-03-13] MEDS: ALBUTEROL FS 2.5 MG/3 ML VIAL.NEB NEB SCH (09:37)
[2024-03-13 11:36] LABS: ABG OXYGEN SATURATION 93.2 % (94.0-98.0); ABG PCO2 72.5 mmHg (32.0-45.0); ABG PH 7.344 (7.350-7.450); ABG PO2 74.7 mmHg (83.0-108.0); ABG TOTAL HEMOGLOBIN 13.3 G/dL (12.0-16.0); COHb 0.7 % (0.5-1.5); MetHb 0.2 % (0.0-1.5); O2Hb 92.4 % (94.0-97.0); SITE, ABG RIGHT RADIAL
[2024-03-13 12:33] LABS: CALCIUM, SERUM 9.5 mg/dL (8.5-10.1); CHLORIDE 96 mmol/L (98-107); CREATININE 0.6 mg/dL (0.6-1.3); GLUCOSE 183 mg/dL (74-106); POTASSIUM 4.4 mmol/L (3.5-5.1); SODIUM SERUM 137 mmol/L (136-145); UREA NITROGEN, BLOOD 30 mg/dL (7-18)
[2024-03-13 12:39] LABS: ALANINE AMINOTRANSFERASE 78 U/L (12-78); ALBUMIN 2.7 g/dL (3.4-5.0); ALKALINE PHOSPHATASE 116 U/L (46-116); ASPARTATE AMINOTRANSFERASE 38 U/L (15-37); BILIRUBIN,TOTAL 0.2 mg/dL (0.2-1.0); CARBON DIOXIDE 42 mmol/L (21-32); TOTAL PROTEIN, SERUM 7.3 g/dL (6.4-8.2)
[2024-03-13 12:57] LABS: BASOPHILS % (AUTO) 0.1 % (0.0-2.0); HEMATOCRIT 40 % (33-45); HEMOGLOBIN 12.7 g/dL (11.5-14.8); LYMPHOCYTES % (AUTO) 4.8 % (20.0-44.0); MEAN CORPUSCULAR HEMOGLOBIN 29 PG (26.0-33.0); MEAN CORPUSCULAR HGB CONC 32 g/dl (31.0-36.0); MEAN CORPUSCULAR VOLUME 90 fL (82-100); MONOCYTES # (AUTO) 1.1 K/uL (0.1-1.30); MONOCYTES % (AUTO) 5.7 % (2.0-12.0); NEUTROPHILS # (AUTO) 17.6 K/uL (1.8-8.9); NEUTROPHILS % (AUTO) 89.4 % (43.0-81.0); PLATELET COUNT (AUTO) 406 K/uL (150-450); RED BLOOD CELL COUNT(AUTO) 4.41 MIL/uL (4.0-5.2); RED CELL DISTRIBUTION WIDTH 17.3 % (11.5-15.0); WHITE BLOOD COUNT (AUTO) 19.7 K/uL (4.3-11.0)
[2024-03-13 15:40] LABS: ABG BASE EXCESS 9.8 mmol/L (-2.0-3.0); ABG OXYGEN SATURATION 96.1 % (94.0-98.0); ABG PH 7.421 (7.350-7.450); ABG PO2 82.6 mmHg (83.0-108.0); ABG TOTAL HEMOGLOBIN 12.8 G/dL (12.0-16.0); COHb 0.5 % (0.5-1.5); MetHb 0.1 % (0.0-1.5); O2Hb 95.5 % (94.0-97.0); SITE, ABG RIGHT RADIAL
[2024-03-14] VITALS (34 sets, daily range): BP systolic 65–154; BP diastolic 43–133; TEMP 96.3–100.6; O2SAT 91–100
[2024-03-14 02:24] LABS: ABG BASE EXCESS 16.3 mmol/L (-2.0-3.0); ABG OXYGEN SATURATION 95.1 % (94.0-98.0); ABG PCO2 157.5 mmHg (32.0-45.0); ABG PH 7.135 (7.350-7.450); ABG PO2 101.9 mmHg (83.0-108.0); ABG TOTAL HEMOGLOBIN 13.2 G/dL (12.0-16.0); COHb 0.4 % (0.5-1.5); MetHb 0.3 % (0.0-1.5); O2Hb 94.4 % (94.0-97.0); SITE, ABG RIGHT RADIAL
[2024-03-14] MEDS ORDERED: PROPOFOL 100 ML IV PRN (02:30)
[2024-03-14 03:13] LABS: ABG OXYGEN SATURATION 96.1 % (94.0-98.0); ABG PCO2 39.4 mmHg (32.0-45.0); ABG PH 7.139 (7.350-7.450); ABG PO2 112.1 mmHg (83.0-108.0); COHb 0.3 % (0.5-1.5); MetHb 0.3 % (0.0-1.5); O2Hb 95.5 % (94.0-97.0); PEEP,BG 0 cm H2O; SITE, ABG RIGHT RADIAL; VT, ABG 400 mL
[2024-03-14] MEDS: IV NS 0.9% 1,000 ML IV ONE (03:28)
[2024-03-14] MEDS: PROPOFOL 100 ML IV PRN (04:00)
[2024-03-14 04:42] LABS: ABG BASE EXCESS 7.8 mmol/L (-2.0-3.0); ABG OXYGEN SATURATION 99.8 % (94.0-98.0); ABG PCO2 51.8 mmHg (32.0-45.0); ABG PH 7.428 (7.350-7.450); ABG PO2 550.7 mmHg (83.0-108.0); ABG TOTAL HEMOGLOBIN 11.7 G/dL (12.0-16.0); COHb 0.1 % (0.5-1.5); MetHb 0.1 % (0.0-1.5); O2Hb 99.6 % (94.0-97.0); PEEP,BG 0 cm H2O; SITE, ABG RIGHT RADIAL; VT, ABG 450 mL
[2024-03-14 07:08] LABS: HEMATOCRIT 36 % (33-45); HEMOGLOBIN 11.1 g/dL (11.5-14.8); LYMPHOCYTES % (AUTO) 4.7 % (20.0-44.0); MEAN CORPUSCULAR HEMOGLOBIN 28 PG (26.0-33.0); MEAN CORPUSCULAR HGB CONC 31 g/dl (31.0-36.0); MEAN CORPUSCULAR VOLUME 91 fL (82-100); MONOCYTES % (AUTO) 4.7 % (2.0-12.0); NEUTROPHILS # (AUTO) 19.9 K/uL (1.8-8.9); NEUTROPHILS % (AUTO) 90.6 % (43.0-81.0); PLATELET COUNT (AUTO) 315 K/uL (150-450); RED BLOOD CELL COUNT(AUTO) 3.97 MIL/uL (4.0-5.2); RED CELL DISTRIBUTION WIDTH 17.4 % (11.5-15.0); WHITE BLOOD COUNT (AUTO) 21.9 K/uL (4.3-11.0)
[2024-03-14 07:42] LABS: ALANINE AMINOTRANSFERASE 56 U/L (12-78); ALBUMIN 2.3 g/dL (3.4-5.0); ALKALINE PHOSPHATASE 97 U/L (46-116); ASPARTATE AMINOTRANSFERASE 27 U/L (15-37); BILIRUBIN,TOTAL 0.4 mg/dL (0.2-1.0); CALCIUM, SERUM 9.8 mg/dL (8.5-10.1); CARBON DIOXIDE 37 mmol/L (21-32); CHLORIDE 101 mmol/L (98-107); CREATININE 0.6 mg/dL (0.6-1.3); GLUCOSE 145 mg/dL (74-106); POTASSIUM 4.8 mmol/L (3.5-5.1); SODIUM SERUM 141 mmol/L (136-145); TOTAL PROTEIN, SERUM 6.7 g/dL (6.4-8.2); UREA NITROGEN, BLOOD 32 mg/dL (7-18)
[2024-03-14 08:45] LABS: ABG BASE EXCESS 11.1 mmol/L (-2.0-3.0); ABG OXYGEN SATURATION 99.2 % (94.0-98.0); ABG PCO2 39.8 mmHg (32.0-45.0); ABG PH 7.554 (7.350-7.450); ABG PO2 194.5 mmHg (83.0-108.0); ABG TOTAL HEMOGLOBIN 11.4 G/dL (12.0-16.0); COHb 0.3 % (0.5-1.5); MetHb 0.1 % (0.0-1.5); O2Hb 98.8 % (94.0-97.0); PEEP,BG 0 cm H2O; SITE, ABG RIGHT RADIAL; VT, ABG 450 mL
[2024-03-14] MEDS ORDERED: EPINEPHRINE (1:10,000) SYRINGE 1 MG/10 ML DISP.SYRIN IVP ONE (08:47)
[2024-03-14] MEDS ORDERED: ETOMIDATE 2 MG/ML VIAL IV ONE (08:50)
[2024-03-14] MEDS: MEROPENEM 500 MG in IV NS 0.9% 50 ML IV SCH (12:58)
[2024-03-14] MEDS: QUETIAPINE FUMARATE 25 MG TABLET PO PRN (20:31)
[2024-03-15] VITALS (28 sets, daily range): BP systolic 97–204; BP diastolic 64–153; TEMP 98.4–99.9; O2SAT 85–100
[2024-03-15 03:17] LABS: BASOPHILS % (AUTO) 0.1 % (0.0-2.0); EOSINOPHILS % (AUTO) 0.2 % (0.0-6.0); HEMATOCRIT 28 % (33-45); LYMPHOCYTES # (AUTO) 1.7 K/uL (0.8-4.8); MEAN CORPUSCULAR HEMOGLOBIN 28 PG (26.0-33.0); MEAN CORPUSCULAR HGB CONC 32 g/dl (31.0-36.0); MEAN CORPUSCULAR VOLUME 89 fL (82-100); MONOCYTES # (AUTO) 0.7 K/uL (0.1-1.30); MONOCYTES % (AUTO) 4.3 % (2.0-12.0); NEUTROPHILS # (AUTO) 14.3 K/uL (1.8-8.9); NEUTROPHILS % (AUTO) 85.4 % (43.0-81.0); PLATELET COUNT (AUTO) 305 K/uL (150-450); RED BLOOD CELL COUNT(AUTO) 3.17 MIL/uL (4.0-5.2); RED CELL DISTRIBUTION WIDTH 17.5 % (11.5-15.0); WHITE BLOOD COUNT (AUTO) 16.7 K/uL (4.3-11.0)
[2024-03-15 03:32] LABS: ALANINE AMINOTRANSFERASE 39 U/L (12-78); ALBUMIN 2.2 g/dL (3.4-5.0); ALKALINE PHOSPHATASE 80 U/L (46-116); ASPARTATE AMINOTRANSFERASE 18 U/L (15-37); BILIRUBIN,TOTAL 0.2 mg/dL (0.2-1.0); CALCIUM, SERUM 9.1 mg/dL (8.5-10.1); CHLORIDE 104 mmol/L (98-107); CREATININE 0.5 mg/dL (0.6-1.3); GLUCOSE 101 mg/dL (74-106); POTASSIUM 3.6 mmol/L (3.5-5.1); SODIUM SERUM 143 mmol/L (136-145); TOTAL PROTEIN, SERUM 6.1 g/dL (6.4-8.2); UREA NITROGEN, BLOOD 27 mg/dL (7-18)
[2024-03-15 03:41] LABS: CARBON DIOXIDE 41 mmol/L (21-32)
[2024-03-15] MEDS ORDERED: DC PROPOFOL WHEN EXTUBATED XX PRN (09:00)
[2024-03-15 09:44] LABS: ABG BASE EXCESS 14.1 mmol/L (-2.0-3.0); ABG OXYGEN SATURATION 98.5 % (94.0-98.0); ABG PCO2 51.8 mmHg (32.0-45.0); ABG PH 7.496 (7.350-7.450); ABG PO2 126.2 mmHg (83.0-108.0); ABG TOTAL HEMOGLOBIN 10.5 G/dL (12.0-16.0); COHb 0.3 % (0.5-1.5); MetHb 0.2 % (0.0-1.5); PEEP,BG 5 cm H2O; SITE, ABG RIGHT RADIAL; VT, ABG 450 mL
[2024-03-15 14:02] LABS: ABG BASE EXCESS 9.7 mmol/L (-2.0-3.0); ABG OXYGEN SATURATION 76.6 % (94.0-98.0); ABG PCO2 52.4 mmHg (32.0-45.0); ABG PH 7.445 (7.350-7.450); ABG PO2 42.6 mmHg (83.0-108.0); COHb 0.4 % (0.5-1.5); MetHb 0.1 % (0.0-1.5); O2Hb 76.2 % (94.0-97.0); SITE, ABG RIGHT RADIAL
[2024-03-16] VITALS (28 sets, daily range): BP systolic 98–156; BP diastolic 66–101; TEMP 97.3–98.6; O2SAT 90–100
[2024-03-16 04:44] LABS: BASOPHILS % (AUTO) 0.2 % (0.0-2.0); EOSINOPHILS # (AUTO) 0.5 K/uL (0.0-0.7); EOSINOPHILS % (AUTO) 3.1 % (0.0-6.0); HEMATOCRIT 30 % (33-45); HEMOGLOBIN 9.6 g/dL (11.5-14.8); LYMPHOCYTES # (AUTO) 1.9 K/uL (0.8-4.8); LYMPHOCYTES % (AUTO) 10.9 % (20.0-44.0); MEAN CORPUSCULAR HEMOGLOBIN 28 PG (26.0-33.0); MEAN CORPUSCULAR HGB CONC 32 g/dl (31.0-36.0); MEAN CORPUSCULAR VOLUME 89 fL (82-100); MONOCYTES # (AUTO) 0.7 K/uL (0.1-1.30); MONOCYTES % (AUTO) 3.7 % (2.0-12.0); NEUTROPHILS # (AUTO) 14.5 K/uL (1.8-8.9); NEUTROPHILS % (AUTO) 82.1 % (43.0-81.0); PLATELET COUNT (AUTO) 371 K/uL (150-450); RED BLOOD CELL COUNT(AUTO) 3.39 MIL/uL (4.0-5.2); RED CELL DISTRIBUTION WIDTH 17.4 % (11.5-15.0); WHITE BLOOD COUNT (AUTO) 17.7 K/uL (4.3-11.0)
[2024-03-16 05:09] LABS: ALANINE AMINOTRANSFERASE 41 U/L (12-78); ALBUMIN 2.2 g/dL (3.4-5.0); ALKALINE PHOSPHATASE 94 U/L (46-116); ASPARTATE AMINOTRANSFERASE 19 U/L (15-37); BILIRUBIN,TOTAL 0.2 mg/dL (0.2-1.0); CALCIUM, SERUM 9.1 mg/dL (8.5-10.1); CHLORIDE 102 mmol/L (98-107); CREATININE 0.5 mg/dL (0.6-1.3); GLUCOSE 106 mg/dL (74-106); POTASSIUM 4.3 mmol/L (3.5-5.1); SODIUM SERUM 143 mmol/L (136-145); TOTAL PROTEIN, SERUM 6.9 g/dL (6.4-8.2); UREA NITROGEN, BLOOD 20 mg/dL (7-18)
[2024-03-16 05:14] LABS: CARBON DIOXIDE 41 mmol/L (21-32)
[2024-03-16] MEDS: MEROPENEM 1 G in IV NS 0.9% 100 ML IV SCH (19:34)
[2024-03-17] VITALS (26 sets, daily range): BP systolic 94–214; BP diastolic 64–159; TEMP 97.1–98.6; O2SAT 78–100
[2024-03-17 04:49] LABS: BASOPHILS % (AUTO) 0.2 % (0.0-2.0); EOSINOPHILS # (AUTO) 0.6 K/uL (0.0-0.7); EOSINOPHILS % (AUTO) 5.8 % (0.0-6.0); HEMATOCRIT 29 % (33-45); HEMOGLOBIN 9.5 g/dL (11.5-14.8); LYMPHOCYTES # (AUTO) 1.7 K/uL (0.8-4.8); LYMPHOCYTES % (AUTO) 17.3 % (20.0-44.0); MEAN CORPUSCULAR HEMOGLOBIN 29 PG (26.0-33.0); MEAN CORPUSCULAR HGB CONC 33 g/dl (31.0-36.0); MEAN CORPUSCULAR VOLUME 88 fL (82-100); MONOCYTES # (AUTO) 0.4 K/uL (0.1-1.30); MONOCYTES % (AUTO) 4.4 % (2.0-12.0); NEUTROPHILS % (AUTO) 72.3 % (43.0-81.0); PLATELET COUNT (AUTO) 342 K/uL (150-450); RED CELL DISTRIBUTION WIDTH 17.4 % (11.5-15.0); WHITE BLOOD COUNT (AUTO) 9.7 K/uL (4.3-11.0)
[2024-03-17 05:11] LABS: ALANINE AMINOTRANSFERASE 33 U/L (12-78); ALBUMIN 2.1 g/dL (3.4-5.0); ALKALINE PHOSPHATASE 83 U/L (46-116); ASPARTATE AMINOTRANSFERASE 22 U/L (15-37); BILIRUBIN,TOTAL 0.2 mg/dL (0.2-1.0); CALCIUM, SERUM 9.2 mg/dL (8.5-10.1); CHLORIDE 97 mmol/L (98-107); CREATININE 0.4 mg/dL (0.6-1.3); GLUCOSE 93 mg/dL (74-106); POTASSIUM 4.9 mmol/L (3.5-5.1); SODIUM SERUM 135 mmol/L (136-145); TOTAL PROTEIN, SERUM 6.6 g/dL (6.4-8.2); UREA NITROGEN, BLOOD 18 mg/dL (7-18)
[2024-03-17 05:16] LABS: CARBON DIOXIDE 43 mmol/L (21-32)
[2024-03-17 09:18] LABS: ABG BASE EXCESS 8.1 mmol/L (-2.0-3.0); ABG OXYGEN SATURATION 87.4 % (94.0-98.0); ABG PCO2 55.4 mmHg (32.0-45.0); ABG PH 7.408 (7.350-7.450); ABG PO2 54.5 mmHg (83.0-108.0); ABG TOTAL HEMOGLOBIN 11.1 G/dL (12.0-16.0); MetHb 0.1 % (0.0-1.5); O2Hb 86.4 % (94.0-97.0); SITE, ABG RIGHT RADIAL
[2024-03-17 16:19] LABS: ABG BASE EXCESS 12.1 mmol/L (-2.0-3.0); ABG OXYGEN SATURATION 94.1 % (94.0-98.0); ABG PCO2 63.2 mmHg (32.0-45.0); ABG PH 7.408 (7.350-7.450); ABG PO2 72.2 mmHg (83.0-108.0); ABG TOTAL HEMOGLOBIN 11.5 G/dL (12.0-16.0); COHb 1.2 % (0.5-1.5); MetHb 0.3 % (0.0-1.5); O2Hb 92.7 % (94.0-97.0); SITE, ABG RIGHT RADIAL
[2024-03-18] VITALS (24 sets, daily range): BP systolic 91–144; BP diastolic 67–113; TEMP 98.1–98.6; O2SAT 79–100
[2024-03-18 04:53] LABS: BASOPHILS % (AUTO) 0.2 % (0.0-2.0); EOSINOPHILS # (AUTO) 0.2 K/uL (0.0-0.7); EOSINOPHILS % (AUTO) 1.5 % (0.0-6.0); HEMATOCRIT 32 % (33-45); HEMOGLOBIN 10.3 g/dL (11.5-14.8); LYMPHOCYTES # (AUTO) 1.7 K/uL (0.8-4.8); LYMPHOCYTES % (AUTO) 15.8 % (20.0-44.0); MEAN CORPUSCULAR HEMOGLOBIN 28 PG (26.0-33.0); MEAN CORPUSCULAR HGB CONC 33 g/dl (31.0-36.0); MEAN CORPUSCULAR VOLUME 87 fL (82-100); MONOCYTES # (AUTO) 0.4 K/uL (0.1-1.30); MONOCYTES % (AUTO) 3.7 % (2.0-12.0); NEUTROPHILS # (AUTO) 8.2 K/uL (1.8-8.9); NEUTROPHILS % (AUTO) 78.8 % (43.0-81.0); PLATELET COUNT (AUTO) 398 K/uL (150-450); RED BLOOD CELL COUNT(AUTO) 3.62 MIL/uL (4.0-5.2); RED CELL DISTRIBUTION WIDTH 17.1 % (11.5-15.0); WHITE BLOOD COUNT (AUTO) 10.5 K/uL (4.3-11.0)
[2024-03-18 05:04] LABS: CALCIUM, SERUM 9.4 mg/dL (8.5-10.1); CARBON DIOXIDE 40 mmol/L (21-32); CHLORIDE 96 mmol/L (98-107); CREATININE 0.5 mg/dL (0.6-1.3); GLUCOSE 122 mg/dL (74-106); SODIUM SERUM 137 mmol/L (136-145); UREA NITROGEN, BLOOD 17 mg/dL (7-18)
[2024-03-18 05:10] LABS: ALANINE AMINOTRANSFERASE 32 U/L (12-78); ALBUMIN 2.2 g/dL (3.4-5.0); ALKALINE PHOSPHATASE 92 U/L (46-116); ASPARTATE AMINOTRANSFERASE 22 U/L (15-37); BILIRUBIN,TOTAL 0.3 mg/dL (0.2-1.0); TOTAL PROTEIN, SERUM 6.9 g/dL (6.4-8.2)
[2024-03-19] VITALS (24 sets, daily range): BP systolic 93–145; BP diastolic 52–126; TEMP 97.1–100.7; O2SAT 69–98
[2024-03-19 04:58] LABS: ALANINE AMINOTRANSFERASE 24 U/L (12-78); ALBUMIN 2.2 g/dL (3.4-5.0); ALKALINE PHOSPHATASE 92 U/L (46-116); ASPARTATE AMINOTRANSFERASE 18 U/L (15-37); BILIRUBIN,TOTAL 0.2 mg/dL (0.2-1.0); CALCIUM, SERUM 9.4 mg/dL (8.5-10.1); CARBON DIOXIDE 39 mmol/L (21-32); CHLORIDE 97 mmol/L (98-107); CREATININE 0.5 mg/dL (0.6-1.3); GLUCOSE 123 mg/dL (74-106); POTASSIUM 4.4 mmol/L (3.5-5.1); SODIUM SERUM 136 mmol/L (136-145); UREA NITROGEN, BLOOD 20 mg/dL (7-18)
[2024-03-19 05:08] LABS: BASOPHILS # (AUTO) 0.2 K/uL (0.0-0.2); EOSINOPHILS # (AUTO) 0.1 K/uL (0.0-0.7); EOSINOPHILS % (AUTO) 0.3 % (0.0-6.0); HEMATOCRIT 35 % (33-45); LYMPHOCYTES % (AUTO) 14.9 % (20.0-44.0); MEAN CORPUSCULAR HEMOGLOBIN 28 PG (26.0-33.0); MEAN CORPUSCULAR HGB CONC 31 g/dl (31.0-36.0); MEAN CORPUSCULAR VOLUME 88 fL (82-100); MONOCYTES # (AUTO) 0.8 K/uL (0.1-1.30); MONOCYTES % (AUTO) 3.8 % (2.0-12.0); NEUTROPHILS # (AUTO) 16.3 K/uL (1.8-8.9); PLATELET COUNT (AUTO) 314 K/uL (150-450); RED BLOOD CELL COUNT(AUTO) 3.98 MIL/uL (4.0-5.2); RED CELL DISTRIBUTION WIDTH 17.4 % (11.5-15.0); WHITE BLOOD COUNT (AUTO) 20.4 K/uL (4.3-11.0)
[2024-03-19 06:22] LABS: PLATELET ESTIMATE ADEQUATE
[2024-03-19 06:23] LABS: ANISOCYTOSIS 1+
[2024-03-20] VITALS (25 sets, daily range): BP systolic 92–139; BP diastolic 47–101; TEMP 98.8–100.2; O2SAT 83–100
[2024-03-20 10:04] LABS: ABG BASE EXCESS 11.3 mmol/L (-2.0-3.0); ABG OXYGEN SATURATION 82.8 % (94.0-98.0); ABG PCO2 47.3 mmHg (32.0-45.0); ABG PH 7.497 (7.350-7.450); ABG TOTAL HEMOGLOBIN 9.9 G/dL (12.0-16.0); COHb 0.2 % (0.5-1.5); O2Hb 82.6 % (94.0-97.0); SITE, ABG RIGHT RADIAL
[2024-03-20 19:25] LABS: BASOPHILS # (AUTO) 0.1 K/uL (0.0-0.2); BASOPHILS % (AUTO) 0.5 % (0.0-2.0); EOSINOPHILS % (AUTO) 0.2 % (0.0-6.0); HEMATOCRIT 32 % (33-45); HEMOGLOBIN 9.9 g/dL (11.5-14.8); LYMPHOCYTES # (AUTO) 1.1 K/uL (0.8-4.8); LYMPHOCYTES % (AUTO) 6.9 % (20.0-44.0); MEAN CORPUSCULAR HEMOGLOBIN 27 PG (26.0-33.0); MEAN CORPUSCULAR HGB CONC 31 g/dl (31.0-36.0); MEAN CORPUSCULAR VOLUME 88 fL (82-100); MONOCYTES # (AUTO) 0.6 K/uL (0.1-1.30); MONOCYTES % (AUTO) 3.9 % (2.0-12.0); NEUTROPHILS # (AUTO) 14.7 K/uL (1.8-8.9); NEUTROPHILS % (AUTO) 88.5 % (43.0-81.0); PLATELET COUNT (AUTO) 368 K/uL (150-450); RED BLOOD CELL COUNT(AUTO) 3.64 MIL/uL (4.0-5.2); WHITE BLOOD COUNT (AUTO) 16.6 K/uL (4.3-11.0)
[2024-03-20 19:40] LABS: ALANINE AMINOTRANSFERASE 16 U/L (12-78); ALBUMIN 2.2 g/dL (3.4-5.0); ALKALINE PHOSPHATASE 86 U/L (46-116); ASPARTATE AMINOTRANSFERASE 15 U/L (15-37); BILIRUBIN,TOTAL 0.3 mg/dL (0.2-1.0); CALCIUM, SERUM 9.3 mg/dL (8.5-10.1); CARBON DIOXIDE 35 mmol/L (21-32); CHLORIDE 97 mmol/L (98-107); CREATININE 0.5 mg/dL (0.6-1.3); GLUCOSE 170 mg/dL (74-106); POTASSIUM 4.6 mmol/L (3.5-5.1); SODIUM SERUM 136 mmol/L (136-145); TOTAL PROTEIN, SERUM 7.2 g/dL (6.4-8.2); UREA NITROGEN, BLOOD 22 mg/dL (7-18)
[2024-03-21] VITALS (26 sets, daily range): BP systolic 88–200; BP diastolic 51–178; TEMP 97–101.4; O2SAT 82–100
[2024-03-21 04:44] LABS: ALANINE AMINOTRANSFERASE 14 U/L (12-78); ALBUMIN 1.8 g/dL (3.4-5.0); ALKALINE PHOSPHATASE 76 U/L (46-116); ASPARTATE AMINOTRANSFERASE 14 U/L (15-37); BILIRUBIN,TOTAL 0.3 mg/dL (0.2-1.0); CALCIUM, SERUM 9.1 mg/dL (8.5-10.1); CARBON DIOXIDE 34 mmol/L (21-32); CHLORIDE 99 mmol/L (98-107); CREATININE 0.5 mg/dL (0.6-1.3); GLUCOSE 116 mg/dL (74-106); POTASSIUM 4.7 mmol/L (3.5-5.1); SODIUM SERUM 136 mmol/L (136-145); TOTAL PROTEIN, SERUM 6.2 g/dL (6.4-8.2); UREA NITROGEN, BLOOD 23 mg/dL (7-18)
[2024-03-21 10:11] LABS: BASOPHILS % (AUTO) 0.1 % (0.0-2.0); EOSINOPHILS # (AUTO) 0.1 K/uL (0.0-0.7); EOSINOPHILS % (AUTO) 0.5 % (0.0-6.0); HEMATOCRIT 27 % (33-45); HEMOGLOBIN 8.7 g/dL (11.5-14.8); LYMPHOCYTES # (AUTO) 1.1 K/uL (0.8-4.8); LYMPHOCYTES % (AUTO) 8.4 % (20.0-44.0); MEAN CORPUSCULAR HEMOGLOBIN 28 PG (26.0-33.0); MEAN CORPUSCULAR HGB CONC 32 g/dl (31.0-36.0); MEAN CORPUSCULAR VOLUME 88 fL (82-100); MONOCYTES # (AUTO) 0.6 K/uL (0.1-1.30); MONOCYTES % (AUTO) 4.6 % (2.0-12.0); NEUTROPHILS # (AUTO) 10.8 K/uL (1.8-8.9); NEUTROPHILS % (AUTO) 86.4 % (43.0-81.0); PLATELET COUNT (AUTO) 360 K/uL (150-450); RED BLOOD CELL COUNT(AUTO) 3.11 MIL/uL (4.0-5.2); RED CELL DISTRIBUTION WIDTH 17.9 % (11.5-15.0); WHITE BLOOD COUNT (AUTO) 12.5 K/uL (4.3-11.0)
[2024-03-21 10:47] LABS: ABG OXYGEN SATURATION 90.8 % (94.0-98.0); ABG PCO2 52.5 mmHg (32.0-45.0); ABG PH 7.435 (7.350-7.450); ABG PO2 62.9 mmHg (83.0-108.0); COHb 0.2 % (0.5-1.5); MetHb 0.3 % (0.0-1.5); O2Hb 90.3 % (94.0-97.0); SITE, ABG RIGHT RADIAL
[2024-03-21] MEDS: LEVETIRACETAM SOL (5 ML) 100 MG/ML UDC GT SCH (21:19)
[2024-03-22] VITALS (24 sets, daily range): BP systolic 105–141; BP diastolic 60–118; TEMP 98.1–98.6; O2SAT 90–100
[2024-03-22] MEDS: LEVETIRACETAM SOL (5 ML) 100 MG/ML UDC GT SCH (08:35)
[2024-03-22 09:21] LABS: ABG BASE EXCESS 8.8 mmol/L (-2.0-3.0); ABG OXYGEN SATURATION 38.5 % (94.0-98.0); ABG PCO2 67.4 mmHg (32.0-45.0); ABG PH 7.347 (7.350-7.450); ABG PO2 24.9 mmHg (83.0-108.0); ABG TOTAL HEMOGLOBIN 9.8 G/dL (12.0-16.0); COHb 0.3 % (0.5-1.5); MetHb 0.1 % (0.0-1.5); O2Hb 38.3 % (94.0-97.0); SITE, ABG Other
[2024-03-22 09:29] LABS: BASOPHILS % (AUTO) 0.2 % (0.0-2.0); EOSINOPHILS # (AUTO) 0.1 K/uL (0.0-0.7); EOSINOPHILS % (AUTO) 1.1 % (0.0-6.0); HEMATOCRIT 27 % (33-45); HEMOGLOBIN 8.9 g/dL (11.5-14.8); LYMPHOCYTES # (AUTO) 0.9 K/uL (0.8-4.8); LYMPHOCYTES % (AUTO) 8.9 % (20.0-44.0); MEAN CORPUSCULAR HEMOGLOBIN 29 PG (26.0-33.0); MEAN CORPUSCULAR HGB CONC 33 g/dl (31.0-36.0); MEAN CORPUSCULAR VOLUME 88 fL (82-100); MONOCYTES # (AUTO) 0.4 K/uL (0.1-1.30); MONOCYTES % (AUTO) 4.3 % (2.0-12.0); NEUTROPHILS # (AUTO) 8.9 K/uL (1.8-8.9); NEUTROPHILS % (AUTO) 85.5 % (43.0-81.0); PLATELET COUNT (AUTO) 406 K/uL (150-450); RED BLOOD CELL COUNT(AUTO) 3.11 MIL/uL (4.0-5.2); RED CELL DISTRIBUTION WIDTH 17.3 % (11.5-15.0); WHITE BLOOD COUNT (AUTO) 10.4 K/uL (4.3-11.0)
[2024-03-22 09:47] LABS: CALCIUM, SERUM 9.9 mg/dL (8.5-10.1); CHLORIDE 95 mmol/L (98-107); CREATININE 0.4 mg/dL (0.6-1.3); GLUCOSE 121 mg/dL (74-106); POTASSIUM 4.7 mmol/L (3.5-5.1); SODIUM SERUM 140 mmol/L (136-145); UREA NITROGEN, BLOOD 18 mg/dL (7-18)
[2024-03-22 09:59] LABS: CARBON DIOXIDE 46 mmol/L (21-32)
[2024-03-23] VITALS (25 sets, daily range): BP systolic 93–162; BP diastolic 53–150; TEMP 98.2–98.5; O2SAT 87–100
[2024-03-23 05:02] LABS: BASOPHILS % (AUTO) 0.1 % (0.0-2.0); EOSINOPHILS # (AUTO) 0.2 K/uL (0.0-0.7); EOSINOPHILS % (AUTO) 1.8 % (0.0-6.0); HEMATOCRIT 24 % (33-45); LYMPHOCYTES # (AUTO) 1.1 K/uL (0.8-4.8); LYMPHOCYTES % (AUTO) 11.6 % (20.0-44.0); MEAN CORPUSCULAR HEMOGLOBIN 29 PG (26.0-33.0); MEAN CORPUSCULAR HGB CONC 33 g/dl (31.0-36.0); MEAN CORPUSCULAR VOLUME 87 fL (82-100); MONOCYTES # (AUTO) 0.4 K/uL (0.1-1.30); MONOCYTES % (AUTO) 4.5 % (2.0-12.0); NEUTROPHILS # (AUTO) 7.6 K/uL (1.8-8.9); PLATELET COUNT (AUTO) 362 K/uL (150-450); RED BLOOD CELL COUNT(AUTO) 2.79 MIL/uL (4.0-5.2); RED CELL DISTRIBUTION WIDTH 17.6 % (11.5-15.0); WHITE BLOOD COUNT (AUTO) 9.3 K/uL (4.3-11.0)
[2024-03-23 05:16] LABS: CALCIUM, SERUM 9.4 mg/dL (8.5-10.1); CARBON DIOXIDE 40 mmol/L (21-32); CHLORIDE 94 mmol/L (98-107); CREATININE 0.5 mg/dL (0.6-1.3); GLUCOSE 122 mg/dL (74-106); POTASSIUM 4.4 mmol/L (3.5-5.1); SODIUM SERUM 134 mmol/L (136-145); UREA NITROGEN, BLOOD 18 mg/dL (7-18)
[2024-03-24] VITALS (25 sets, daily range): BP systolic 83–130; BP diastolic 52–88; TEMP 98–98.5; O2SAT 97–100
[2024-03-24 04:47] LABS: BASOPHILS % (AUTO) 0.3 % (0.0-2.0); EOSINOPHILS # (AUTO) 0.1 K/uL (0.0-0.7); EOSINOPHILS % (AUTO) 1.5 % (0.0-6.0); HEMATOCRIT 23 % (33-45); HEMOGLOBIN 7.5 g/dL (11.5-14.8); LYMPHOCYTES # (AUTO) 0.9 K/uL (0.8-4.8); LYMPHOCYTES % (AUTO) 10.1 % (20.0-44.0); MEAN CORPUSCULAR HEMOGLOBIN 28 PG (26.0-33.0); MEAN CORPUSCULAR HGB CONC 33 g/dl (31.0-36.0); MEAN CORPUSCULAR VOLUME 87 fL (82-100); MONOCYTES # (AUTO) 0.4 K/uL (0.1-1.30); MONOCYTES % (AUTO) 4.1 % (2.0-12.0); NEUTROPHILS # (AUTO) 7.6 K/uL (1.8-8.9); PLATELET COUNT (AUTO) 341 K/uL (150-450); RED BLOOD CELL COUNT(AUTO) 2.63 MIL/uL (4.0-5.2); RED CELL DISTRIBUTION WIDTH 17.5 % (11.5-15.0)
[2024-03-24 05:17] LABS: CALCIUM, SERUM 8.9 mg/dL (8.5-10.1); CHLORIDE 98 mmol/L (98-107); CREATININE 0.5 mg/dL (0.6-1.3); GLUCOSE 156 mg/dL (74-106); POTASSIUM 4.2 mmol/L (3.5-5.1); SODIUM SERUM 137 mmol/L (136-145); UREA NITROGEN, BLOOD 19 mg/dL (7-18)
[2024-03-24 05:22] LABS: CARBON DIOXIDE 44 mmol/L (21-32)
[2024-03-24] MEDS: dexaMETHasone SOD PHOSPHATE 10 MG/ML VIAL IV SCH (08:33)
[2024-03-24 09:47] LABS: ABG BASE EXCESS 16.8 mmol/L (-2.0-3.0); ABG OXYGEN SATURATION 99.4 % (94.0-98.0); ABG PCO2 68.5 mmHg (32.0-45.0); ABG PO2 288.9 mmHg (83.0-108.0); ABG TOTAL HEMOGLOBIN 8.4 G/dL (12.0-16.0); COHb 0.3 % (0.5-1.5); MetHb 0.2 % (0.0-1.5); O2Hb 98.9 % (94.0-97.0); SITE, ABG RIGHT RADIAL
[2024-03-25] VITALS (28 sets, daily range): BP systolic 82–169; BP diastolic 50–99; TEMP 97.5–98.5; O2SAT 90–100
[2024-03-25 04:43] LABS: BASOPHILS % (AUTO) 0.1 % (0.0-2.0); EOSINOPHILS % (AUTO) 0.1 % (0.0-6.0); HEMATOCRIT 24 % (33-45); HEMOGLOBIN 7.7 g/dL (11.5-14.8); LYMPHOCYTES # (AUTO) 1.1 K/uL (0.8-4.8); LYMPHOCYTES % (AUTO) 15.2 % (20.0-44.0); MEAN CORPUSCULAR HEMOGLOBIN 29 PG (26.0-33.0); MEAN CORPUSCULAR HGB CONC 33 g/dl (31.0-36.0); MEAN CORPUSCULAR VOLUME 87 fL (82-100); MONOCYTES # (AUTO) 0.3 K/uL (0.1-1.30); MONOCYTES % (AUTO) 4.4 % (2.0-12.0); NEUTROPHILS # (AUTO) 5.6 K/uL (1.8-8.9); NEUTROPHILS % (AUTO) 80.2 % (43.0-81.0); PLATELET COUNT (AUTO) 395 K/uL (150-450); RED CELL DISTRIBUTION WIDTH 16.8 % (11.5-15.0)
[2024-03-25 04:52] LABS: CALCIUM, SERUM 9.7 mg/dL (8.5-10.1); CHLORIDE 100 mmol/L (98-107); CREATININE 0.5 mg/dL (0.6-1.3); GLUCOSE 117 mg/dL (74-106); POTASSIUM 5.3 mmol/L (3.5-5.1); SODIUM SERUM 140 mmol/L (136-145); UREA NITROGEN, BLOOD 28 mg/dL (7-18)
[2024-03-25 05:02] LABS: CARBON DIOXIDE 48 mmol/L (21-32)
[2024-03-25 09:04] LABS: ABG BASE EXCESS 17.6 mmol/L (-2.0-3.0); ABG OXYGEN SATURATION 98.6 % (94.0-98.0); ABG PCO2 72.5 mmHg (32.0-45.0); ABG PH 7.405 (7.350-7.450); ABG PO2 127.4 mmHg (83.0-108.0); ABG TOTAL HEMOGLOBIN 7.8 G/dL (12.0-16.0); COHb 0.5 % (0.5-1.5); O2Hb 98.1 % (94.0-97.0); SITE, ABG RIGHT RADIAL
[2024-03-25 14:10] LABS: ABG BASE EXCESS 16.5 mmol/L (-2.0-3.0); ABG PCO2 65.5 mmHg (32.0-45.0); ABG PH 7.434 (7.350-7.450); ABG PO2 53.8 mmHg (83.0-108.0); ABG TOTAL HEMOGLOBIN 8.8 G/dL (12.0-16.0); COHb 0.3 % (0.5-1.5); MetHb 0.1 % (0.0-1.5); O2Hb 86.7 % (94.0-97.0)
[2024-03-25] MEDS: SODIUM POLYSTYRENE SULFONATE 15 G/60 ML BOTTLE GT ONE (20:15)
[2024-03-25] MEDS ORDERED: QUETIAPINE FUMARATE 25 MG TABLET PO PRN (21:30)
[2024-03-26] VITALS (26 sets, daily range): BP systolic 92–169; BP diastolic 50–132; TEMP 97.4–98.6; O2SAT 91–100
[2024-03-26] MEDS: QUETIAPINE FUMARATE 25 MG TABLET GT PRN (00:56)
[2024-03-26 04:47] LABS: BASOPHILS % (AUTO) 0.3 % (0.0-2.0); EOSINOPHILS % (AUTO) 0.2 % (0.0-6.0); HEMATOCRIT 21 % (33-45); LYMPHOCYTES # (AUTO) 1.6 K/uL (0.8-4.8); MEAN CORPUSCULAR HEMOGLOBIN 28 PG (26.0-33.0); MEAN CORPUSCULAR HGB CONC 32 g/dl (31.0-36.0); MEAN CORPUSCULAR VOLUME 86 fL (82-100); MONOCYTES # (AUTO) 0.3 K/uL (0.1-1.30); MONOCYTES % (AUTO) 5.7 % (2.0-12.0); NEUTROPHILS # (AUTO) 3.3 K/uL (1.8-8.9); NEUTROPHILS % (AUTO) 62.8 % (43.0-81.0); PLATELET COUNT (AUTO) 388 K/uL (150-450); RED BLOOD CELL COUNT(AUTO) 2.48 MIL/uL (4.0-5.2); RED CELL DISTRIBUTION WIDTH 17.8 % (11.5-15.0); WHITE BLOOD COUNT (AUTO) 5.2 K/uL (4.3-11.0)
[2024-03-26 04:57] LABS: CALCIUM, SERUM 9.4 mg/dL (8.5-10.1); CHLORIDE 101 mmol/L (98-107); CREATININE 0.5 mg/dL (0.6-1.3); GLUCOSE 92 mg/dL (74-106); POTASSIUM 4.5 mmol/L (3.5-5.1); SODIUM SERUM 141 mmol/L (136-145); UREA NITROGEN, BLOOD 23 mg/dL (7-18)
[2024-03-26 05:30] LABS: CARBON DIOXIDE 43 mmol/L (21-32)
[2024-03-26 05:31] LABS: HEMOGLOBIN 6.9 g/dL (11.5-14.8)
[2024-03-26 07:30] LABS: ANISOCYTOSIS 1+; BASOPHILS % (MANUAL) 0 % (0.0-2.0); EOSINOPHILS % (MANUAL) 0 % (0-4); LYMPHOCYTES % (MANUAL) 27 % (16-48); MONOCYTES % (MANUAL) 8 % (0-11.0); NEUTROPHILS % (MANUAL) 65 (42-76); PLATELET ESTIMATE ADEQUATE; STOMATOCYTES 2+
[2024-03-26] MEDS: QUETIAPINE FUMARATE 25 MG TABLET PO SCH (07:54)
[2024-03-26] MEDS: AMLODIPINE BESYLATE 5 MG TABLET GT SCH (08:09)
[2024-03-26 16:12] LABS: HEMOGLOBIN 10.5 g/dL (11.5-14.8)
[2024-03-27] VITALS (11 sets, daily range): BP systolic 104–134; BP diastolic 62–80; TEMP 98.1–99.7; O2SAT 92–98
[2024-03-27 11:14] LABS: BASOPHILS % (AUTO) 0.2 % (0.0-2.0); EOSINOPHILS % (AUTO) 0.2 % (0.0-6.0); HEMATOCRIT 32 % (33-45); HEMOGLOBIN 10.2 g/dL (11.5-14.8); LYMPHOCYTES # (AUTO) 0.6 K/uL (0.8-4.8); LYMPHOCYTES % (AUTO) 9.7 % (20.0-44.0); MEAN CORPUSCULAR HEMOGLOBIN 28 PG (26.0-33.0); MEAN CORPUSCULAR HGB CONC 33 g/dl (31.0-36.0); MEAN CORPUSCULAR VOLUME 87 fL (82-100); MONOCYTES # (AUTO) 0.2 K/uL (0.1-1.30); MONOCYTES % (AUTO) 2.8 % (2.0-12.0); NEUTROPHILS # (AUTO) 5.4 K/uL (1.8-8.9); NEUTROPHILS % (AUTO) 87.1 % (43.0-81.0); PLATELET COUNT (AUTO) 456 K/uL (150-450); RED BLOOD CELL COUNT(AUTO) 3.63 MIL/uL (4.0-5.2); WHITE BLOOD COUNT (AUTO) 6.2 K/uL (4.3-11.0)
[2024-03-27 11:30] LABS: CALCIUM, SERUM 9.8 mg/dL (8.5-10.1); CARBON DIOXIDE 39 mmol/L (21-32); CHLORIDE 101 mmol/L (98-107); CREATININE 0.6 mg/dL (0.6-1.3); GLUCOSE 117 mg/dL (74-106); SODIUM SERUM 139 mmol/L (136-145); UREA NITROGEN, BLOOD 20 mg/dL (7-18)
[2024-03-27] MEDS: ENSURE ENLIVE 237 ML LIQUID (VANILLA) PO SCH (14:48)
[2024-03-27 16:01] LABS: OCCULT BLOOD STOOL NEGATIVE (NEGATIVE)
[2024-03-27] MEDS: MIRTAZAPINE 15 MG TABLET NG SCH (21:58)
[2024-03-28] VITALS (11 sets, daily range): BP systolic 118–139; BP diastolic 68–89; TEMP 98–98.9; O2SAT 93–99
[2024-03-29] VITALS (11 sets, daily range): BP systolic 116–142; BP diastolic 65–84; TEMP 97.9–98.8; O2SAT 94–98
[2024-03-30] VITALS (10 sets, daily range): BP systolic 116–153; BP diastolic 60–76; TEMP 97.8–98.5; O2SAT 95–99
[2024-03-30] MEDS ORDERED: LEVE100S GT (11:37)
[2024-03-30] MEDS ORDERED: DEXA4TAB68 PO (11:43)
[2024-03-31] VITALS (10 sets, daily range): BP systolic 116–131; BP diastolic 61–62; TEMP 97.9–98.1; O2SAT 93–97
== END 2024-03-31 15:09 | DRG 871 ==
LOC: ER 18:33 → ICU 21:47 → TELE-TD 03-09 16:10 → TELE1 03-12 10:42 → ICU 03-13 12:25 → TELE-TD 03-26 13:21 → TELE1 03-27 14:37 → MEDSG1 03-30 10:06
PROVIDERS: ADMIT Surgery Vascular Surgery; ATTEND Internal Medicine
PROC: 5A1945Z Respiratory Ventilation, 24-96 Consecutive Hours (ICD-10-PCS; principal; 2024-03-02)
PROC: 0BH17EZ Insertion of Endotracheal Airway into Trachea, Via Natural or Artificial Opening (ICD-10-PCS; 2024-03-02)
PROC: 5A09457 Assistance with Respiratory Ventilation, 24-96 Consecutive Hours, Continuous Positive Airway Pressure (ICD-10-PCS; 2024-03-08)
PROC: 5A09457 Assistance with Respiratory Ventilation, 24-96 Consecutive Hours, Continuous Positive Airway Pressure (ICD-10-PCS; 2024-03-13)
PROC: 0BH17EZ Insertion of Endotracheal Airway into Trachea, Via Natural or Artificial Opening (ICD-10-PCS; 2024-03-14)
PROC: 5A1945Z Respiratory Ventilation, 24-96 Consecutive Hours (ICD-10-PCS; 2024-03-14)
PROC: 0BH17EZ Insertion of Endotracheal Airway into Trachea, Via Natural or Artificial Opening (ICD-10-PCS; 2024-03-14)
PROC: 5A09557 Assistance with Respiratory Ventilation, Greater than 96 Consecutive Hours, Continuous Positive Airway Pressure (ICD-10-PCS; 2024-03-16)
PROC: 30233N1 Transfusion of Nonautologous Red Blood Cells into Peripheral Vein, Percutaneous Approach (ICD-10-PCS; 2024-03-26)
DX: A41.9 Sepsis, unspecified organism (principal); G92.8 Other toxic encephalopathy; J96.01 Acute respiratory failure with hypoxia; J96.02 Acute respiratory failure with hypercapnia; E44.0 Moderate protein-calorie malnutrition; E87.20 Acidosis, unspecified; J44.1 Chronic obstructive pulmonary disease with (acute) exacerbation; J44.0 Chronic obstructive pulmonary disease with (acute) lower respiratory infection; E87.29 Other acidosis; F03.93 Unspecified dementia, unspecified severity, with mood disturbance; F03.94 Unspecified dementia, unspecified severity, with anxiety; N39.0 Urinary tract infection, site not specified; F05 Delirium due to known physiological condition; Z16.12 Extended spectrum beta lactamase (ESBL) resistance; J44.9 Chronic obstructive pulmonary disease, unspecified; E87.6 Hypokalemia; I10 Essential (primary) hypertension; G40.909 Epilepsy, unspecified, not intractable, without status epilepticus; F41.9 Anxiety disorder, unspecified; R13.10 Dysphagia, unspecified; L30.9 Dermatitis, unspecified; Z87.892 Personal history of anaphylaxis; Z90.710 Acquired absence of both cervix and uterus; Z88.5 Allergy status to narcotic agent; Z88.8 Allergy status to other drugs, medicaments and biological substances; Z79.51 Long term (current) use of inhaled steroids; Z79.82 Long term (current) use of aspirin; Z79.899 Other long term (current) drug therapy; J98.4 Other disorders of lung; F31.9 Bipolar disorder, unspecified; F20.9 Schizophrenia, unspecified; E88.09 Other disorders of plasma-protein metabolism, not elsewhere classified; D64.9 Anemia, unspecified; B96.89 Other specified bacterial agents as the cause of diseases classified elsewhere; M79.7 Fibromyalgia; M19.90 Unspecified osteoarthritis, unspecified site; F39 Unspecified mood [affective] disorder; F29 Unspecified psychosis not due to a substance or known physiological condition; R73.9 Hyperglycemia, unspecified
CPT/HCPCS: 31720; 36415; 36600; 70450-TC; 71045-TC; 80048-TC; 80053-TC; 80076-TC; 81001; 82272-TC; 82607-TC; 82803-TC; 82962-TC; 83605-TC; 83735-TC; 83921; 84100-TC; 84425; 84443-TC; 84478-TC; 84484-TC; 85025-TC; 85027-TC; 85730-TC; 86850-TC; 87040-TC; 87081-TC; 87086-TC; 92526; 92611-TC; 92950-TC; 93307-TC; 94002-TC; 94003-TC; 94660; 94760-TC; 94762-TC; 94799-TC; 95819-TC; 97110-TC; 97112-TC; 97530-TC; 99082-TC; A4223; A4624; A9563; G0378; J0171; J0360; J0461; J0692; J1100; J1650; J1815; J1953; J2060; J2185; J2250; J2405; J2470; J2919; J3010; J3370; J3475; J3480; J3490; J7030; J7050; J7060; P9016